=== PATIENT | female | born 1955 | race Caucasian/White ===

== ENCOUNTER 2017-12-24 15:50 | Observation (INO) | END 2017-12-26 16:20 | disposition home or self-care (01) ==

== ENCOUNTER 2018-07-05 01:54 | Inpatient (IN) | payer OTHER ==
[2018-07-05] VITALS (10 sets, daily range): BP systolic 100–131; BP diastolic 55–78; PULSE 68–120; RESP 18–20; Ht 167.6 cm; Wt 71.9 kg
[~2018-07-05] VITALS: Ht 167.6 cm; Wt 71.9 kg
[~2018-07-05 01:54] MED LIST: ADV25050 INHALATION; ALBU8.5H8 INH; AMLO-145 PO; CARV6.2579 PO
--- NOTE | 2018-07-05 04:54 | HP ---
Date/Time of Note Date/Time of Note DATE: 07/05/18 TIME: 04:54 Assessment/Plan VTE Prophylaxis SCD applied (from Nsg): Yes Pharmacological prophylaxis: apixaban Assessment/Plan Assessment/Plan 1. Acute lower extremity pain with edema - Will check ECHO and BNP to assess for CHF exacerbation - Lasix on board - PT/OT - pain control 2. Acute on chronic Diastolic HF - not on any medications as outpatient - Will start on Lasix and check BNP and ECHO 3. Atrial fib - rate controlled - will continue on Eliquis and BB 4. Acute chest pain - resolved - last stress was 12/2017 and negative 5. COPD - continue neb treatments 6. Pulm HTN - O2 as needed 7. hypokalemia - replaced prior to transfer 8. Disposition - Admit to telemetry for evaluation of lower extremity edema HPI/ROS Admit Date/Time Admit Date/Time Jul 05, 2018 at 03:44 Hx of Present Illness 63 yo F with PMH atrial fibrillation, chronic alcoholism, HTN, COPD, diastolic heart failure, and pulmonary HTN presented to [facility] complaining of bilateral lower extremity edema with associated pain. She has been unable to ambulate or stand due to swelling and discomfort and concerned she may just need to use a walker. Patient also admits to chest pressure that has since resolved with recent workup in December with negative stress. Patient admits to congested cough with clear sputum but denies any shortness of breath. She has been admitted to [place] multiple times in the past few months and states her medications keep changing. She currently is only on Eliquis and Coreg for atrial fibrillation. She denies any current alcohol or tobacco use. Patient denies any urinary issues, chest pain, palpitations, abdominal pain, constipation, diarrhea, or dizziness. ROS All 12 systems reviewed and pertinent positives as per HPI. All others negative. Constitutional: No chills, No fatigue, No nausea Eyes: No discharge ENT: No congestion Respiratory: cough, sputum; No shortness of breath, No wheezing Cardiovascular: edema; No chest pain, No lightheadedness, No palpitations Gastrointestinal: No pain, No constipation, No diarrhea, No nausea, No vomiting Genitourinary: no complaints Musculoskeletal: no complaints Skin: No bruising, No laceration, No rash Neurologic: No confusion, No dizziness, No focal-weakness, No syncope Endocrine: no complaints Lymphatic: no complaints Psychological: nl mood/affect Immunologic: no complaints PMH/Family/Social Past Medical History Medical History: congestive heart failure, other (atrial fibrillation) Coded Allergies: No Known Allergy (Unverified , 12/24/17) Past Surgical History Past Surgical Hx: noncontributory, other Family History Significant Family History: no pertinent family hx Social History Alcohol Use: sober Smoking Status: Former smoker Drug Use: none Exam/Review of Systems Vital Signs Vitals Vital Signs Date Temp Pulse Resp B/P (MAP) Pulse Ox O2 O2 Flow FiO2 Time Delivery Rate 07/05/18 97.8 100 20 129/78 98 04:26 (95) Exam Exam General: Patient is a pleasant female, currently lying in bed in no acute distress HEENT: Atraumatic, normocephalic. The pupils are equal, round and reactive. Extraocular motor are intact Neck: Supple with full range of motion. No rigidity or meningismus Chest: Nontender Lungs: Congested cough, coarse breath sounds diffusely, no wheezing Heart: Normal S1-S2, irregular rhythm and rate controlled. no murmurs Abdomen: Soft , nontender, nondistended , bowel sounds are present. No guarding no rebound tenderness , No masses or organomegaly. No costovertebral temporal angle mass Extremities: pedal edema bilaterally R>L with tenderness to palpation. Neurologic: Normal mental status, speech normal, cranial nerves II through XII are intact, motor and sensory are intact, Additional Comments Home medications reviewed NEIL TERRELL MD Jul 05, 2018 04:54
[2018-07-05] MEDS ORDERED: HYDROCODONE/APAP (5/325) TAB PO PRN (05:00)
[2018-07-05] MEDS ORDERED: DOCUSATE SODIUM 100 MG CAP PO PRN (05:00)
[2018-07-05] MEDS ORDERED: ACETAMINOPHEN 325 MG TAB PO PRN (05:00)
[2018-07-05] MEDS ORDERED: ONDANSETRON 4 MG INJ IV PRN (05:00)
[2018-07-05] MEDS ORDERED: NITROGLYCERIN (SL) 0.4 MG TAB SL PRN (05:00)
[2018-07-05] MEDS ORDERED: MAGNESIUM HYDROXIDE 30ML CUP PO PRN (05:00)
[2018-07-05] MEDS ORDERED: ALBUTEROL 0.083% (NEB) 2.5 MG/3 ML AMP HHN PRN (05:00)
[2018-07-05] MEDS ORDERED: morphine 2 MG INJ IV PRN (05:00)
[2018-07-05] MEDS ORDERED: NACL 0.9% 3 ML SYG IV SCH (05:00)
[2018-07-05] MEDS: PANTOPRAZOLE (EC) 40 MG TAB PO SCH (05:37)
[2018-07-05] MEDS: FLUTICASONE/VILANTEROL 100-25 INH SCH (08:58)
[2018-07-05] MEDS: APIXABAN 5 MG TABLET PO SCH ×2 (08:58→20:33)
[2018-07-05] MEDS ORDERED: ENOXAPARIN 40 MG/0.4 ML SYG SC SCH (09:00)
[2018-07-05] MEDS ORDERED: FUROSEMIDE 40 MG INJ IV SCH (09:00)
[2018-07-05] MEDS ORDERED: AMLODIPINE 5 MG TAB PO SCH (09:00)
[2018-07-05] MEDS ORDERED: LACTULOSE 30ML CUP PO SCH (09:00)
[2018-07-05] MEDS ORDERED: POTASSIUM CHLORIDE (SR) 20 MEQ TAB PO STA (09:18)
--- NOTE | 2018-07-05 09:21 | PN ---
Date/Time of Note Date/Time of Note DATE: 07/05/18 TIME: 09:18 Assessment/Plan VTE Prophylaxis Risk score (from Nsg)>0 risk: 5 SCD applied (from Nsg): No SCD contraindicated: other Pharmacological prophylaxis: apixaban Lines/Catheters IV Catheter Type (from Nrsg): Saline Lock Urinary Cath still in place: No Assessment/Plan Hospital Course Assessment/Plan: 63-year-old female who presents with: 1. Acute on chronic Diastolic HF -patient presented with acute lower extremity pain with edema -Follow-up results of ECHO and BNP to assess for CHF exacerbation -Continue Lasix on board -We will get PT/OT - pain control 3. Atrial fib- rate controlled - will continue on Eliquis and BB 4. Acute chest pain- resolved- last stress was 12/2017 and negative -Monitor, follow-up troponins as 5. COPD - continue as needed neb treatments 6. Pulm HTN -Monitor, O2 as needed 7. hypokalemia- replaced prior to transfer -Follow potassium levels in the morning Result Diagram: 07/05/18 0536 Results 24hrs Laboratory Tests Test 07/05/18 05:36 Sodium Level 138 Potassium Level 3.3 L Chloride Level 101 Carbon Dioxide Level 34 H Anion Gap 3 L Blood Urea Nitrogen 8 Creatinine 0.60 Est Glomerular Filtrat Rate mL/min > 60 Glucose Level 93 Calcium Level 8.0 L Magnesium Level 1.7 Creatine Kinase < 20 L Creatine Kinase Index Creatinine Kinase MB (Mass) 0.46 Troponin I 0.024 B-Type Natriuretic Peptide 778 H Subjective 24 Hr Interval Summary Free Text/Dictation No acute events overnight, tolerating Lasix Exam/Review of Systems Exam Vitals Vital Signs Date Temp Pulse Resp B/P (MAP) Pulse Ox O2 O2 Flow FiO2 Time Delivery Rate 07/05/18 96 20 98 21 07:43 07/05/18 98.0 131/75 07:23 (93) Intake and Output 07/04/18 07/04/18 07/05/18 1515:00 23:00 07:00 IntakeIntake Total 240 ml BalanceBalance 240 ml Exam General: lying in bed in no acute distress HEENT: Atraumatic, normocephalic. The pupils are equal, round and reactive. Extraocular motor are intact Neck: Supple with full range of motion. No rigidity or meningismus Chest: Nontender Lungs: Some coarse breath sounds diffusely, no wheezing Heart: Normal S1-S2, irregular rhythm and rate controlled. no murmurs Abdomen: Soft , nontender, nondistended , bowel sounds are present. No guarding no rebound tenderness Extremities: pedal edema bilaterally R>L with tenderness to palpation. Neurologic: No focal deficits Results Results 24hrs Laboratory Tests Test 07/05/18 05:36 Sodium Level 138 Potassium Level 3.3 L Chloride Level 101 Carbon Dioxide Level 34 H Anion Gap 3 L Blood Urea Nitrogen 8 Creatinine 0.60 Est Glomerular Filtrat Rate mL/min > 60 Glucose Level 93 Calcium Level 8.0 L Magnesium Level 1.7 Creatine Kinase < 20 L Creatine Kinase Index Creatinine Kinase MB (Mass) 0.46 Troponin I 0.024 B-Type Natriuretic Peptide 778 H Medications Medication Current Medications Amlodipine Besylate (Norvasc) 5 mg DAILY PO Last administered on 07/05/18at 08:58; Admin Dose 5 MG; Start 07/05/18 at 09:00 Fluticasone/ Vilanterol (Breo Ellipta 100-25 Mcg Inh) 1 inh DAILY INH Last administered on 07/05/18at 08:58; Admin Dose 1 INH; Start 07/05/18 at 09:00 Albuterol (Proventil 0.083% (Neb)) 2.5 mg Q2H RESP THERAPY PRN HHN SHORTNESS OF BREATH Last administered on 07/05/18at 07:43; Admin Dose 2.5 MG; Start 07/05/18 at 05:00 IV Flush (NS 3 ml) 3 ml PER PROTOCOL IV ; Start 07/05/18 at 05:00 Ondansetron HCl (Zofran Inj) 4 mg Q6H PRN IV NAUSEA/VOMITING; Start 07/05/18 at 05:00 Nitroglycerin (Nitroglycerin (Sl Tab) 0.4 Mg) 1 tab Q5M PRN SL .CHEST PAIN; Start 07/05/18 at 05:00 Acetaminophen (Tylenol Tab) 650 mg Q6H PRN PO .PAIN 1-3 OR TEMP; Start 07/05/18 at 05:00 Acetaminophen/ Hydrocodone Bitart ([place] (5/325)) 1 tab Q6H PRN PO .PAIN 4-6; Start 07/05/18 at 05:00 Morphine Sulfate (morphine) 2 mg Q4H PRN IV .PAIN 7-10; Start 07/05/18 at 05:00 Docusate Sodium (Colace) 100 mg Q12H PRN PO .CONSTIPATION; Start 07/05/18 at 05:00 Magnesium Hydroxide (Milk Of Mag) 30 ml DAILY PRN PO .CONSTIPATION; Start 07/05/18 at 05:00 Pantoprazole (Protonix Tab) 40 mg DAILY@06 PO Last administered on 07/05/18at 05 :37; Admin Dose 40 MG; Start 07/05/18 at 06:00 Carvedilol (Coreg) 3.125 mg BID PO Last administered on 07/05/18at 08:58; Admin Dose 3.125 MG; Start 07/05/18 at 09:00 Apixaban (Eliquis) 5 mg BID PO Last administered on 07/05/18at 08:58; Admin Dose 5 MG; Start 07/05/18 at 09:00 Furosemide (Lasix) 40 mg DAILY IV Last administered on 07/05/18at 08:59; Admin Dose 40 MG; Start 07/05/18 at 09:00 AMBER HASSAN Jul 05, 2018 09:21
--- NOTE | 2018-07-05 09:44 | RADRPT ---
Echocardiogram Report Patient Name: OMAR GALLEGOSatient ID: [id number] : 1955 (63y 6m)Study Date: 07/05/2018 7:17:23 AM Gender: FAccession #: [id number] Tech: Kareem Ceron [facility] Location: 9 Ref.Physician: NEIL TERRELL Height(Cm): BSA: Weight(Kg): Quality: Technically Difficult StudyAccount #: Procedures: Echocardiographic Report: Transthoracic echocardiogram with complete 2D, M-Mode, and doppler examination. Indications: Evaluate Left Ventricular function, and Chest Pain. Measurements: 2D/M Mode Doppler Measurement Value Normal Range Measurement Value Normal Range LVIDd 2D 4.3 [ 3.8 - 5.2 ] cm AV Peak Trung 1.2 [ 100.0 - 170.0 ] cm/sec LVIDs 2D 2.3 [ 2.2 - 3.5 ] cm AV Peak PG 6.0 [ 2.0 - 9.0 ] mmHg LVPWd 2D 1.0 [ 0.6 - 0.9 ] cm LVOT Peak Trung 0.8 [ 70.0 - 110.0 ] cm/sec IVSd 2D 1.0 [ 0.6 - 0.9 ] cm LVOT Peak PG 3.0 [ 2.0 - 6.0 ] mmHg AoR Diam 2D 3.0 [ 2.3 - 3.1 ] cm MV E Peak Trung 0.8 [ 60.0 - 130.0 ] cm/sec EDV 2D 84.9 [ 46.0 - 106.0 ] ml MV A Peak Trung 0.7 [ 100.0 - 120.0 ] cm/sec ESV 2D 17.1 [ 14.0 - 42.0 ] ml MV E/A 1.1 [ 0.8 - 1.5 ] ratio EF 2D 79.9 [ 54.0 - 74.0 ] percent MV Decel Time 144 [ 104 - 258 ] msec LA Dimen 2D 3.5 [ 2.7 - 3.8 ] cm Lat E` Trung 0.2 [ 10.0 - 15.0 ] cm/sec Lateral E/E` 4.7 [ 1.0 - 2.0 ] ratio MV E/A 1.1 [ 0.8 - 1.5 ] ratio TR Peak Trung 2.7 [ 100.0 - 280.0 ] cm/sec TR Peak PG 29.0 mmHg RVSP 39.0 [ 10.0 - 36.0 ] mmHg RA Pressure 10.0 mmHg Findings: Left Ventricle: Normal left ventricular systolic function. Normal left ventricular cavity size. Normal left ventricular wall thickness. Ejection fraction is visually estimated at 65 %. Tissue Doppler/Mitral Doppler indices are within normal limits. Right Ventricle: Normal right ventricular size. Normal right ventricular systolic function. Left Atrium: The left atrium is normal in size. Right Atrium: The right atrium is normal in size. Mitral Valve: Normal appearance and function of the mitral valve with trace physiologic regurgitation. Aortic Valve: Normal appearance of the aortic valve. No significant aortic stenosis or insufficiency. Tricuspid Valve: Normal appearance of the tricuspid valve. Estimated peak PA systolic pressure 39 mmHg. There is trace tricuspid regurgitation. Pulmonic Valve: Pulmonic valve not well visualized. Pericardium: Normal pericardium with no significant pericardial effusion. Right pleural effusion seen. Aorta: Normal aortic root. IVC: Normal size and normal respiratory collapse consistent with normal right atrial pressure. Conclusions: Normal left ventricular systolic function. Normal left ventricular cavity size. Normal left ventricular wall thickness. Ejection fraction is visually estimated at 65 %. Tissue Doppler/Mitral Doppler indices are within normal limits. Normal appearance and function of the mitral valve with trace physiologic regurgitation. Normal appearance of the aortic valve. No significant aortic stenosis or insufficiency. Normal appearance of the tricuspid valve. Estimated peak PA systolic pressure 39 mmHg. There is trace tricuspid regurgitation. Electronically Signed By: Percy Gutierrez 2018-07-05 09:43:32 PST
[2018-07-05] MEDS ORDERED: DIGOXIN 0.125 MG TAB PO SCH (13:00)
[2018-07-05] MEDS ORDERED: morphine LIQ (10 MG/5 ML) CUP PO PRN (20:30)
[2018-07-06] VITALS (12 sets, daily range): BP systolic 82–106; BP diastolic 54–68; PULSE 69–105; RESP 16–18
[2018-07-06] MEDS: PANTOPRAZOLE (EC) 40 MG TAB PO SCH (05:42)
[2018-07-06] MEDS: APIXABAN 5 MG TABLET PO SCH ×2 (08:35→20:00)
[2018-07-06] MEDS: FLUTICASONE/VILANTEROL 100-25 INH SCH (08:36)
[2018-07-06] MEDS ORDERED: POTASSIUM CHLORIDE (SR) 20 MEQ TAB PO STA (08:57)
[2018-07-06] MEDS ORDERED: MAGNESIUM SULFATE 2 GM/50 ML 50 ML IVPB ONE (10:00)
--- NOTE | 2018-07-06 10:51 | PN ---
Date/Time of Note Date/Time of Note DATE: 07/06/18 TIME: 10:51 Assessment/Plan VTE Prophylaxis Risk score (from Ns)>0 risk: 5 SCD applied (from [facility]): No SCD contraindicated: patient refusal Pharmacological prophylaxis: apixaban Lines/Catheters IV Catheter [facility] (from [facility]): Saline Lock Urinary Cath still in place: No Assessment/Plan Assessment/Plan 1. Acute on chronic Diastolic HF - Cardiology consultation placed and appreciate recommendations for diuretics - Lasix and Aldactone on board - ECHO results noted - BNP elevated 2. Atrial fib - rate controlled - will continue on Eliquis 3. Acute chest pain - resolved - last stress was 12/2017 and negative 4. COPD - continue neb treatments 5. Pulm HTN - O2 as needed 6. hypokalemia - replacing 7. Disposition - When reaches dry weight, will d/c home with HHPT Result Diagram: 07/06/1815 07/06/18 0515 Results 24hrs Laboratory Tests Test 07/05/18 11:01 07/06/18 05:15 Creatine Kinase < 20 L Creatine Kinase Index Creatinine Kinase MB (Mass) 0.40 Troponin I 0.024 White Blood Count 7.6 # Red Blood Count 2.74 L Hemoglobin 8.8 L Hematocrit 26.2 #L Mean Corpuscular Volume 95.6 Mean Corpuscular Hemoglobin 32.1 Mean Corpuscular Hemoglobin Concent 33.6 Red Cell Distribution Width 15.0 H Platelet Count 198 # Mean Platelet Volume 10.6 H Immature Granulocytes % 0.400 Neutrophils % 57.1 Lymphocytes % 31.4 Monocytes % 8.6 Eosinophils % 2.1 Basophils % 0.4 Nucleated Red Blood Cells % 0.0 Immature Granulocytes # 0.030 Neutrophils # 4.3 Lymphocytes # 2.4 Monocytes # 0.7 Eosinophils # 0.2 Basophils # 0.0 Nucleated Red Blood Cells # 0.0 Sodium Level 137 Potassium Level 3.2 L Chloride Level 97 Carbon Dioxide Level 31 Anion Gap 9 # Blood Urea Nitrogen 7 Creatinine 0.63 Est Glomerular Filtrat Rate mL/min > 60 Glucose Level 96 Hemoglobin A1c 4.5 Calcium Level 7.6 L Magnesium Level 1.6 L Triglycerides Level 76 Cholesterol Level 92 L LDL Cholesterol, Calculated 64 HDL Cholesterol 13 L Cholesterol/HDL Ratio 7.0 Thyroid Stimulating Hormone (TSH) 4.270 Subjective 24 Hr Interval Summary Free Text/Dictation Patient still with lower extremity edema and discomfort. Able to transfer to bedside commode without issues. Initially diuresing a great a lot but states urine output has diminished. Exam/Review of Systems Exam Vitals Vital Signs Date Temp Pulse Resp B/P (MAP) Pulse Ox O2 O2 Flow FiO2 Time Delivery Rate 07/06/18 99 08:17 07/06/18 97.7 17 88/57 (67) 96 07:58 07/05/18 21 07:43 Intake and Output 07/05/18 07/05/18 07/06/18 1414:59 22:59 06:59 IntakeIntake Total 900 ml 500 ml BalanceBalance 900 ml 500 ml Exam General: Patient is a pleasant female, no acute distress Neck: Supple Chest: Nontender Lungs: Coarse breath sounds. mild expiratory wheezing Heart: Normal S1-S2, irregular rhythm and rate controlled. no murmurs Abdomen: Soft , nontender, nondistended , bowel sounds are present. No guarding no rebound tenderness Extremities: Bilateral pitting edema up to shins, tenderness to palpation. Neurologic: Normal mental status, speech normal, cranial nerves II through XII are intact, motor and sensory are intact, Results Results 24hrs Laboratory Tests Test 07/05/18 11:01 07/06/18 05:15 Creatine Kinase < 20 L Creatine Kinase Index Creatinine Kinase MB (Mass) 0.40 Troponin I 0.024 White Blood Count 7.6 # Red Blood Count 2.74 L Hemoglobin 8.8 L Hematocrit 26.2 #L Mean Corpuscular Volume 95.6 Mean Corpuscular Hemoglobin 32.1 Mean Corpuscular Hemoglobin Concent 33.6 Red Cell Distribution Width 15.0 H Platelet Count 198 # Mean Platelet Volume 10.6 H Immature Granulocytes % 0.400 Neutrophils % 57.1 Lymphocytes % 31.4 Monocytes % 8.6 Eosinophils % 2.1 Basophils % 0.4 Nucleated Red Blood Cells % 0.0 Immature Granulocytes # 0.030 Neutrophils # 4.3 Lymphocytes # 2.4 Monocytes # 0.7 Eosinophils # 0.2 Basophils # 0.0 Nucleated Red Blood Cells # 0.0 Sodium Level 137 Potassium Level 3.2 L Chloride Level 97 Carbon Dioxide Level 31 Anion Gap 9 # Blood Urea Nitrogen 7 Creatinine 0.63 Est Glomerular Filtrat Rate mL/min > 60 Glucose Level 96 Hemoglobin A1c 4.5 Calcium Level 7.6 L Magnesium Level 1.6 L Triglycerides Level 76 Cholesterol Level 92 L LDL Cholesterol, Calculated 64 HDL Cholesterol 13 L Cholesterol/HDL Ratio 7.0 Thyroid Stimulating Hormone (TSH) 4.270 Medications Medication Current Medications Amlodipine Besylate (Norvasc) 5 mg DAILY PO Last administered on 07/05/18at 08:58; Admin Dose 5 MG; Start 07/05/18 at 09:00 Fluticasone/ Vilanterol (Breo Ellipta 100-25 Mcg Inh) 1 inh DAILY INH Last administered on 07/06/18at 08:36; Admin Dose 1 INH; Start 07/05/18 at 09:00 Albuterol (Proventil 0.083% (Neb)) 2.5 mg Q2H RESP THERAPY PRN HHN SHORTNESS OF BREATH Last administered on 07/05/18at 07:43; Admin Dose 2.5 MG; Start 07/05/18 a t 05:00 IV Flush (NS 3 ml) 3 ml PER PROTOCOL IV ; Start 07/05/18 at 05:00 Ondansetron HCl (Zofran Inj) 4 mg Q6H PRN IV NAUSEA/VOMITING; Start 07/05/18 at 05:00 Nitroglycerin (Nitroglycerin (Sl Tab) 0.4 Mg) 1 tab Q5M PRN SL .CHEST PAIN; Start 07/05/18 at 05:00 Acetaminophen (Tylenol Tab) 650 mg Q6H PRN PO .PAIN 1-3 OR TEMP; Start 07/05/18 at 05:00 Acetaminophen/ Hydrocodone Bitart ([place] (5/325)) 1 tab Q6H PRN PO .PAIN 4-6; Start 07/05/18 at 05:00 Docusate Sodium (Colace) 100 mg Q12H PRN PO .CONSTIPATION; Start 07/05/18 at 05:00 Magnesium Hydroxide (Milk Of Mag) 30 ml DAILY PRN PO .CONSTIPATION; Start 07/05/18 at 05:00 Pantoprazole (Protonix Tab) 40 mg DAILY@06 PO Last administered on 07/06/18at 05:42; Admin Dose 40 MG; Start 07/05/18 at 06:00 Carvedilol (Coreg) 3.125 mg BID PO Last administered on 07/05/18at 20:33; Admin Dose 3.125 MG; Start 07/05/18 at 09:00 Apixaban (Eliquis) 5 mg BID PO Last administered on 07/06/18at 08:35; Admin Dose 5 MG; Start 07/05/18 at 09:00 Furosemide (Lasix) 40 mg DAILY IV Last administered on 07/05/18at 08:59; Admin Dose 40 MG; Start 07/05/18 at 09:00 Morphine Sulfate (morphine) 6 mg Q4H PRN PO SEVERE PAIN LEVEL 7-10; Start 07/05/18 at 20:30 Magnesium Sulfate 50 ml @ 25 mls/hr ONCE ONCE IVPB Last administered on 07/06/18at 09:45; Admin Dose 25 MLS/HR; Start 07/06/18 at 10:00; Stop 07/06/18 at 11:59 NEIL TERRELL MD Jul 06, 2018 10:51
--- NOTE | 2018-07-06 11:05 | CONS ---
Assessment/Plan Cardiology NYHA: II Heart Failure Type: Acute Heart Failure Type: Diastolic Assessment/Plan Hospital Course (Demo Recall) Acute decompensated diastolic congestive heart failure History of hypertension, currently hypotensive Paroxysmal atrial fibrillation History of COPD Normal nuclear cardiac perfusion study 12/25/2017 Preserved left ventricular systolic ejection fraction echocardiogram 07/05/2018 ASD status post surgical repair -Patient presents with progressive worsening lower extremity edema as well as wheezing and cough. -She has been on Lasix with minimal improvement in her symptoms. Of note, patient's blood pressure has been on the lower side and I am unsure if she has been receiving all of her diuretics. -I will DC her Norvasc and Coreg -Adjust Lasix 20 mg IV twice daily with holding parameters for hypotension. I will start the patient on Aldactone as well given the hypokalemia Consultation Date/Type/Reason Admit Date/Time Jul 05, 2018 at 03:44 Type of Consult Cardiology Reason for Consultation Lower extremity edema Date/Time of Note DATE: 07/06/18 TIME: 10:57 Hx of Present Illness This is a 63-year-old female with past medical history of diastolic congestive heart failure, paroxysmal atrial fibrillation, COPD who presents with symptoms of progressive lower extremity edema for the past month and a wet cough over the past few days. Patient denies any shortness of breath but does complain of intermittent wheezing. Her lower extremity edema began approximately a month ago. She has been in a rehab facility over the past month. Her cough is wet but minimally productive. She denies any fevers or chills. She has been compliant with her medications and she thinks she is on a low-sodium diet. 12 point review of systems was performed with all pertinent positives and negatives mentioned above and all else is negative Past Medical History Paroxysmal atrial fibrillation COPD Medical History: congestive heart failure, hypertension Home Meds Active Scripts Salmeterol Xinaf/Fluticasone* (Advair*) 250-50 Diskus Inhaler, 1 INH INHALATION BID, #1 INHALER Prov:THU THORPE NP 12/26/17 Albuterol Sulfate* (Proair HFA*) 8.5 Gm Hfa.aer.ad, 2 PUFF INH Q4 for Dyspnea, #1 INHALER Prov:THU THORPE NP 12/26/17 Carvedilol* (Carvedilol*) 6.25 Mg Tablet, 6.25 MG PO BID, #60 TAB Prov:THU THORPE HRIS DEVELOPER 12/26/17 Amlodipine Besylate* (Amlodipine Besylate*) 5 Mg Tablet, 5 MG PO DAILY, #30 TAB Prov:THU THORPE HRIS DEVELOPER 12/26/17 Medications Current Medications Fluticasone/ Vilanterol (Breo Ellipta 100-25 Mcg Inh) 1 inh DAILY INH Last administered on 07/06/18 08:36; Admin Dose 1 INH; Start 07/05/18 at 09:00 Albuterol (Proventil 0.083% (Neb)) 2.5 mg Q2H RESP THERAPY PRN HHN SHORTNESS OF BREATH Last administered on 07/05/18 07:43; Admin Dose 2.5 MG; Start 07/05/18 at 05:00 IV Flush (NS 3 ml) 3 ml PER PROTOCOL IV ; Start 07/05/18 at 05:00 Ondansetron HCl (Zofran Inj) 4 mg Q6H PRN IV NAUSEA/VOMITING; Start 07/05/18 at 05:00 Nitroglycerin (Nitroglycerin (Sl Tab) 0.4 Mg) 1 tab Q5M PRN SL .CHEST PAIN; Start 07/05/18 at 05:00 Acetaminophen (Tylenol Tab) 650 mg Q6H PRN PO .PAIN 1-3 OR TEMP; Start 07/05/18 at 05:00 Acetaminophen/ Hydrocodone Bitart ([place] (5/325)) 1 tab Q6H PRN PO .PAIN 4-6; Start 07/05/18 at 05:00 Docusate Sodium (Colace) 100 mg Q12H PRN PO .CONSTIPATION; Start 07/05/18 at 05:00 Magnesium Hydroxide (Milk Of Mag) 30 ml DAILY PRN PO .CONSTIPATION; Start 07/05/18 at 05:00 Pantoprazole (Protonix Tab) 40 mg DAILY@06 PO Last administered on 07/06/18 05:42; Admin Dose 40 MG; Start 07/05/18 at 06:00 Apixaban (Eliquis) 5 mg BID PO Last administered on 07/06/18 08:35; Admin Dose 5 MG; Start 07/05/18 at 09:00 Furosemide (Lasix) 40 mg DAILY IV Last administered on 2/19/19at 08:59; Admin Dose 40 MG; Start 07/05/18 at 09:00 Morphine Sulfate (morphine) 6 mg Q4H PRN PO SEVERE PAIN LEVEL 7-10; Start 07/05/18 at 20:30 Magnesium Sulfate 50 ml @ 25 mls/hr ONCE ONCE IVPB Last administered on 07/06/18at 09:45; Admin Dose 25 MLS/HR; Start 07/06/18 at 10:00; Stop 07/06/18 at 11:59 Allergies: Coded Allergies: No Known Allergy (Unverified , 12/24/17) Past Surgical History Past Surgical Hx: noncontributory, other Social History Alcohol Use: sober Smoking Status: Former smoker Drug Use: none Exam/Review of Systems Vital Signs Vitals Vital Signs Date Temp Pulse Resp B/P (MAP) Pulse Ox O2 O2 Flow FiO2 Time Delivery Rate 07/06/18 99 08:17 07/06/18 97.7 17 88/57 (67) 96 07:58 07/05/18 21 07:43 Intake and Output 07/05/18 07/05/18 07/06/18 1515:00 23:00 07:00 IntakeIntake Total 900 ml 500 ml BalanceBalance 900 ml 500 ml Exam Exam No apparent distress Constitutional: alert, oriented, well developed Head: normocephalic Respiratory: other (Coarse breath sounds bilaterally with mild end expiratory wheezing, minimal scattered crackles) Cardiovascular: regular rate and rhythm (With intermittent irregularities), other (S1-S2 heard) Gastrointestinal: soft, non-tender, bowel sounds Extremities: edema Labs Result Diagram: 07/06/1815 07/06/18 0515 Results 24hrs Laboratory Tests Test 07/05/18 11:01 07/06/18 05:15 Creatine Kinase < 20 L Creatine Kinase Index Creatinine Kinase MB (Mass) 0.40 Troponin I 0.024 White Blood Count 7.6 # Red Blood Count 2.74 L Hemoglobin 8.8 L Hematocrit 26.2 #L Mean Corpuscular Volume 95.6 Mean Corpuscular Hemoglobin 32.1 Mean Corpuscular Hemoglobin Concent 33.6 Red Cell Distribution Width 15.0 H Platelet Count 198 # Mean Platelet Volume 10.6 H Immature Granulocytes % 0.400 Neutrophils % 57.1 Lymphocytes % 31.4 Monocytes % 8.6 Eosinophils % 2.1 Basophils % 0.4 Nucleated Red Blood Cells % 0.0 Immature Granulocytes # 0.030 Neutrophils # 4.3 Lymphocytes # 2.4 Monocytes # 0.7 Eosinophils # 0.2 Basophils # 0.0 Nucleated Red Blood Cells # 0.0 Sodium Level 137 Potassium Level 3.2 L Chloride Level 97 Carbon Dioxide Level 31 Anion Gap 9 # Blood Urea Nitrogen 7 Creatinine 0.63 Est Glomerular Filtrat Rate mL/min > 60 Glucose Level 96 Hemoglobin A1c 4.5 Calcium Level 7.6 L Magnesium Level 1.6 L Triglycerides Level 76 Cholesterol Level 92 L LDL Cholesterol, Calculated 64 HDL Cholesterol 13 L Cholesterol/HDL Ratio 7.0 Thyroid Stimulating Hormone (TSH) 4.270 Medications Medications Current Medications Fluticasone/ Vilanterol (Breo Ellipta 100-25 Mcg Inh) 1 inh DAILY INH Last administered on 07/06/18at 08:36; Admin Dose 1 INH; Start 07/05/18 at 09:00 Albuterol (Proventil 0.083% (Neb)) 2.5 mg Q2H RESP THERAPY PRN HHN SHORTNESS OF BREATH Last administered on 07/05/18at 07:43; Admin Dose 2.5 MG; Start 07/05/18 at 05:00 IV Flush (NS 3 ml) 3 ml PER PROTOCOL IV ; Start 07/05/18 at 05:00 Ondansetron HCl (Zofran Inj) 4 mg Q6H PRN IV NAUSEA/VOMITING; Start 07/05/18 at 05:00 Nitroglycerin (Nitroglycerin (Sl Tab) 0.4 Mg) 1 tab Q5M PRN SL .CHEST PAIN; Start 07/05/18 at 05:00 Acetaminophen (Tylenol Tab) 650 mg Q6H PRN PO .PAIN 1-3 OR TEMP; Start 07/05/18 at 05:00 Acetaminophen/ Hydrocodone Bitart ([place] (5/325)) 1 tab Q6H PRN PO .PAIN 4-6; Start 07/05/18 at 05:00 Docusate Sodium (Colace) 100 mg Q12H PRN PO .CONSTIPATION; Start 07/05/18 at 05:00 Magnesium Hydroxide (Milk Of Mag) 30 ml DAILY PRN PO .CONSTIPATION; Start 07/05/18 at 05:00 Pantoprazole (Protonix Tab) 40 mg DAILY@06 PO Last administered on 07/06/18at 05:42; Admin Dose 40 MG; Start 07/05/18 at 06:00 Apixaban (Eliquis) 5 mg BID PO Last administered on 07/06/18 08:35; Admin Dose 5 MG; Start 07/05/18 at 09:00 Furosemide (Lasix) 40 mg DAILY IV Last administered on 07/05/18 08:59; Admin Dose 40 MG; Start 07/05/18 at 09:00 Morphine Sulfate (morphine) 6 mg Q4H PRN PO SEVERE PAIN LEVEL 7-10; Start 07/05/18 at 20:30 Magnesium Sulfate 50 ml @ 25 mls/hr ONCE ONCE IVPB Last administered on 07/06/18 09:45; Admin Dose 25 MLS/HR; Start 07/06/18 at 10:00; Stop 07/06/18 at 11:59 Ranulfo Gold DO Jul 06, 2018 11:05
[2018-07-06] MEDS: FUROSEMIDE 20 MG INJ IV SCH (18:13)
[2018-07-06] MEDS: SPIRONOLACTONE 25 MG TAB PO SCH (18:13)
[2018-07-07] VITALS (13 sets, daily range): BP systolic 90–110; BP diastolic 51–67; PULSE 82–108; RESP 17–18
[2018-07-07] MEDS: PANTOPRAZOLE (EC) 40 MG TAB PO SCH (05:13)
[2018-07-07] MEDS: FUROSEMIDE 20 MG INJ IV SCH ×2 (05:13→17:40)
[2018-07-07] MEDS: SPIRONOLACTONE 25 MG TAB PO SCH ×2 (05:13→17:42)
--- NOTE | 2018-07-07 08:45 | PN ---
Date/Time of Note Date/Time of Note DATE: 07/07/18 TIME: 08:44 Assessment/Plan VTE Prophylaxis Risk score (from Ns)>0 risk: 3 SCD applied (from [facility]): No SCD contraindicated: patient refusal Pharmacological prophylaxis: apixaban Lines/Catheters IV Catheter Type (from [facility]): Peripheral IV Urinary Cath still in place: No Assessment/Plan Assessment/Plan 1. Acute on chronic Diastolic HF - Cardiology on board and appreciate recommendations. Continue current diuretic dosages and monitor I/O - Lasix and Aldactone on board - ECHO results noted - Inital BNP elevated 2. Atrial fib - occasional episodes of RVR. Cardiology restarted BB for better control - will continue on Eliquis 3. Acute chest pain- resolved - last stress was 12/2017 and negative 4. COPD - continue neb treatments 5. Pulm HTN - O2 as needed 6. Peripheral neuropathy - will start on Gabapentin 7. Disposition - Continue diuresing and monitor for improvement in LE edema Result Diagram: 07/07/18 0535 07/07/18 0535 Results 24hrs Laboratory Tests Test 07/07/18 05:35 White Blood Count 9.2 # Red Blood Count 3.05 L Hemoglobin 9.6 L Hematocrit 29.1 L Mean Corpuscular Volume 95.4 Mean Corpuscular Hemoglobin 31.5 Mean Corpuscular Hemoglobin Concent 33.0 Red Cell Distribution Width 15.3 H Platelet Count 211 Mean Platelet Volume 11.2 H Immature Granulocytes % 0.300 Neutrophils % 61.4 Lymphocytes % 27.2 Monocytes % 9.3 Eosinophils % 1.5 Basophils % 0.3 Nucleated Red Blood Cells % 0.0 Immature Granulocytes # 0.030 Neutrophils # 5.6 Lymphocytes # 2.5 Monocytes # 0.9 Eosinophils # 0.1 Basophils # 0.0 Nucleated Red Blood Cells # 0.0 Sodium Level 136 Potassium Level 3.8 Chloride Level 98 Carbon Dioxide Level 34 H Anion Gap 4 L Blood Urea Nitrogen 9 Creatinine 0.71 Glucose Level 92 Calcium Level 7.8 L Phosphorus Level 3.5 Magnesium Level 1.8 Albumin 2.2 L Subjective 24 Hr Interval Summary Free Text/Dictation Patient is doing well and in no acute distress. She still has burning in lower extremities but swelling has improved. She has been urinating more frequently on increased dose of diuretics, Exam/Review of Systems Exam Vitals Vital Signs Date Temp Pulse Resp B/P (MAP) Pulse Ox O2 O2 Flow FiO2 Time Delivery Rate 07/07/18 108 08:17 07/07/18 98.4 17 110/67 94 07:18 (81) 07/07/18 Room Air 04:07 07/05/18 07:43 Intake and Output 07/06/18 07/06/18 07/07/18 1414:59 22:59 06:59 IntakeIntake Total 800 ml 200 ml BalanceBalance 800 ml 200 ml Exam General: Patient is a pleasant female, no acute distress Neck: Supple Lungs: Crackles at bases, no wheezing present Heart: Normal S1-S2, irregular rhythm and rate controlled (occasional RVR). no murmurs Abdomen: Soft , nontender, nondistended , bowel sounds are present. No guarding no rebound tenderness Extremities: Bilateral pitting edema feet bilaterally, mild tenderness to palpation. Neurologic: Normal mental status, speech normal, cranial nerves II through XII are intact, motor and sensory are intact, Results Results 24hrs Laboratory Tests Test 07/07/18 05:35 White Blood Count 9.2 # Red Blood Count 3.05 L Hemoglobin 9.6 L Hematocrit 29.1 L Mean Corpuscular Volume 95.4 Mean Corpuscular Hemoglobin 31.5 Mean Corpuscular Hemoglobin Concent 33.0 Red Cell Distribution Width 15.3 H Platelet Count 211 Mean Platelet Volume 11.2 H Immature Granulocytes % 0.300 Neutrophils % 61.4 Lymphocytes % 27.2 Monocytes % 9.3 Eosinophils % 1.5 Basophils % 0.3 Nucleated Red Blood Cells % 0.0 Immature Granulocytes # 0.030 Neutrophils # 5.6 Lymphocytes # 2.5 Monocytes # 0.9 Eosinophils # 0.1 Basophils # 0.0 Nucleated Red Blood Cells # 0.0 Sodium Level 136 Potassium Level 3.8 Chloride Level 98 Carbon Dioxide Level 34 H Anion Gap 4 L Blood Urea Nitrogen 9 Creatinine 0.71 Glucose Level 92 Calcium Level 7.8 L Phosphorus Level 3.5 Magnesium Level 1.8 Albumin 2.2 L Medications Medication Current Medications Fluticasone/ Vilanterol (Breo Ellipta 100-25 Mcg Inh) 1 inh DAILY INH Last administered on 07/06/18at 08:36; Admin Dose 1 INH; Start 07/05/18 at 09:00 Albuterol (Proventil 0.083% (Neb)) 2.5 mg Q2H RESP THERAPY PRN HHN SHORTNESS OF BREATH Last administered on 07/05/18at 07:43; Admin Dose 2.5 MG; Start 07/05/18 at 05:00 IV Flush (NS 3 ml) 3 ml PER PROTOCOL IV ; Start 07/05/18 at 05:00 Ondansetron HCl (Zofran Inj) 4 mg Q6H PRN IV NAUSEA/VOMITING; Start 07/05/18 at 05:00 Nitroglycerin (Nitroglycerin (Sl Tab) 0.4 Mg) 1 tab Q5M PRN SL .CHEST PAIN; Start 07/05/18 at 05:00 Acetaminophen (Tylenol Tab) 650 mg Q6H PRN PO .PAIN 1-3 OR TEMP; Start 07/05/18 at 05:00 Acetaminophen/ Hydrocodone Bitart ([place] (5/325)) 1 tab Q6H PRN PO .PAIN 4-6; Start 07/05/18 at 05:00 Docusate Sodium (Colace) 100 mg Q12H PRN PO .CONSTIPATION; Start 07/05/18 at 05:00 Magnesium Hydroxide (Milk Of Mag) 30 ml DAILY PRN PO .CONSTIPATION; Start 07/05/18 at 05:00 Pantoprazole (Protonix Tab) 40 mg DAILY@06 PO Last administered on 07/07/18at 05:13; Admin Dose 40 MG; Start 07/05/18 at 06:00 Apixaban (Eliquis) 5 mg BID PO Last administered on 07/06/18at 20:00; Admin Dose 5 MG; Start 07/05/18 at 09:00 Morphine Sulfate (morphine) 6 mg Q4H PRN PO SEVERE PAIN LEVEL 7-10; Start 07/05/18 at 20:30 Furosemide (Lasix) 20 mg BID DIURETICS IV Last administered on 07/07/18at 05:13; Admin Dose 20 MG; Start 07/06/18 at 18:00 Spironolactone (Aldactone) 12.5 mg BID DIURETICS PO Last administered on 07/07/18at 05:13; Admin Dose 12.5 MG; Start 07/06/18 at 18:00 NEIL TERRELL MD Jul 07, 2018 08:44
[2018-07-07] MEDS: FLUTICASONE/VILANTEROL 100-25 INH SCH (08:50)
[2018-07-07] MEDS: APIXABAN 5 MG TABLET PO SCH ×2 (08:50→20:35)
[2018-07-07] MEDS: GABAPENTIN 100 MG CAP PO SCH ×2 (12:12→20:35)
[2018-07-07] MEDS ORDERED: POTASSIUM CHLORIDE (SR) 20 MEQ TAB PO STA (13:58)
--- NOTE | 2018-07-07 14:07 | CONS ---
Assessment/Plan Cardiology NYHA: II Heart Failure Type: Acute Heart Failure Type: Diastolic Assessment/Plan Hospital Course (Demo Recall) Acute decompensated diastolic congestive heart failure Labile blood pressure Paroxysmal atrial fibrillation History of COPD Normal nuclear cardiac perfusion study 12/25/2017 Preserved left ventricular systolic ejection fraction echocardiogram 07/05/2018 ASD status post surgical repair -Shortness of breath as well as lower extremity edema is improving on current regimen of Lasix and Aldactone. Continue current diuretic regimen -Blood pressure trend has improved -Patient with bursts of atrial fibrillation with rapid ventricular rates, would start beta-devon and titrate as blood pressure permits -We will order potassium and magnesium supplementation Consultation Date/Type/Reason Admit Date/Time Jul 05, 2018 at 03:44 Initial Consult Date Type of Consult Cardiology Date/Time of Note DATE: 07/07/18 TIME: 13:59 24 HR Interval Summary Free Text/Dictation Feeling better today, less swelling in her legs and pain. Denies shortness of breath or wheezing Exam/Review of Systems Vital Signs Vitals Vital Signs Date Temp Pulse Resp B/P (MAP) Pulse Ox O2 O2 Flow FiO2 Time Delivery Rate 07/07/18 105 12:33 07/07/18 98.5 18 108/64 97 11:44 (79) 07/07/18 Room Air 11:00 07/05/18 07:43 Intake and Output 07/06/18 07/06/18 07/07/18 1515:00 23:00 07:00 IntakeIntake Total 800 ml 200 ml BalanceBalance 800 ml 200 ml Exam Constitutional: alert, oriented (No apparent distress, no dyspnea with speaking) Respiratory: other (Coarse breath sounds bilaterally, no wheezing) Cardiovascular: regular rate and rhythm (S1-S2 heard) Gastrointestinal: soft, non-tender, bowel sounds Extremities: edema Labs Result Diagram: 07/07/18 0535 07/07/18 0535 Results 24hrs Laboratory Tests Test 07/07/18 05:35 White Blood Count 9.2 # Red Blood Count 3.05 L Hemoglobin 9.6 L Hematocrit 29.1 L Mean Corpuscular Volume 95.4 Mean Corpuscular Hemoglobin 31.5 Mean Corpuscular Hemoglobin Concent 33.0 Red Cell Distribution Width 15.3 H Platelet Count 211 Mean Platelet Volume 11.2 H Immature Granulocytes % 0.300 Neutrophils % 61.4 Lymphocytes % 27.2 Monocytes % 9.3 Eosinophils % 1.5 Basophils % 0.3 Nucleated Red Blood Cells % 0.0 Immature Granulocytes # 0.030 Neutrophils # 5.6 Lymphocytes # 2.5 Monocytes # 0.9 Eosinophils # 0.1 Basophils # 0.0 Nucleated Red Blood Cells # 0.0 Sodium Level 136 Potassium Level 3.8 Chloride Level 98 Carbon Dioxide Level 34 H Anion Gap 4 L Blood Urea Nitrogen 9 Creatinine 0.71 Glucose Level 92 Calcium Level 7.8 L Phosphorus Level 3.5 Magnesium Level 1.8 Albumin 2.2 L Medications Medications Current Medications Fluticasone/ Vilanterol (Breo Ellipta 100-25 Mcg Inh) 1 inh DAILY INH Last adm inistered on 07/07/18at 08:50; Admin Dose 1 INH; Start 07/05/18 at 09:00 Albuterol (Proventil 0.083% (Neb)) 2.5 mg Q2H RESP THERAPY PRN HHN SHORTNESS OF BREATH Last administered on 07/05/18at 07:43; Admin Dose 2.5 MG; Start 07/05/18 at 05:00 IV Flush (NS 3 ml) 3 ml PER PROTOCOL IV ; Start 07/05/18 at 05:00 Ondansetron HCl (Zofran Inj) 4 mg Q6H PRN IV NAUSEA/VOMITING; Start 07/05/18 at 05:00 Nitroglycerin (Nitroglycerin (Sl Tab) 0.4 Mg) 1 tab Q5M PRN SL .CHEST PAIN; Start 07/05/18 at 05:00 Acetaminophen (Tylenol Tab) 650 mg Q6H PRN PO .PAIN 1-3 OR TEMP; Start 07/05/18 at 05:00 Acetaminophen/ Hydrocodone Bitart ([place] (5/325)) 1 tab Q6H PRN PO .PAIN 4-6; Start 07/05/18 at 05:00 Docusate Sodium (Colace) 100 mg Q12H PRN PO .CONSTIPATION; Start 07/05/18 at 05:00 Magnesium Hydroxide (Milk Of Mag) 30 ml DAILY PRN PO .CONSTIPATION; Start 07/05/18 at 05:00 Pantoprazole (Protonix Tab) 40 mg DAILY@06 PO Last administered on 07/07/18at 05:13; Admin Dose 40 MG; Start 07/05/18 at 06:00 Apixaban (Eliquis) 5 mg BID PO Last administered on 07/07/18at 08:50; Admin Dose 5 MG; Start 07/05/18 at 09:00 Morphine Sulfate (morphine) 6 mg Q4H PRN PO SEVERE PAIN LEVEL 7-10; Start 07/05/18 at 20:30 Furosemide (Lasix) 20 mg BID DIURETICS IV Last administered on 07/07/18at 05:13; Admin Dose 20 MG; Start 07/06/18 at 18:00 Spironolactone (Aldactone) 12.5 mg BID DIURETICS PO Last administered on at 05:13; Admin Dose 12.5 MG; Start 07/06/18 at 18:00 Gabapentin (Neurontin) 100 mg TID PO Last administered on 07/07/18at 12:12; Admin Dose 100 MG; Start 07/07/18 at 13:00 Ranulfo Gold DO Jul 07, 2018 14:07
[2018-07-07] MEDS: METOPROLOL 25 MG TAB PO SCH ×2 (15:01→22:00)
[2018-07-07] MEDS ORDERED: MAGNESIUM SULFATE 2 GM/50 ML 50 ML IVPB ONE (15:30)
[2018-07-08] VITALS (14 sets, daily range): BP systolic 88–107; BP diastolic 53–67; PULSE 78–106; RESP 17–20
[2018-07-08] MEDS: SPIRONOLACTONE 25 MG TAB PO SCH ×2 (05:40→18:11)
[2018-07-08] MEDS: FUROSEMIDE 20 MG INJ IV SCH (05:40)
[2018-07-08] MEDS: METOPROLOL 25 MG TAB PO SCH ×3 (05:40→22:00)
[2018-07-08] MEDS: PANTOPRAZOLE (EC) 40 MG TAB PO SCH (05:42)
[2018-07-08] MEDS: GABAPENTIN 100 MG CAP PO SCH (08:26)
[2018-07-08] MEDS: FLUTICASONE/VILANTEROL 100-25 INH SCH (08:26)
[2018-07-08] MEDS: APIXABAN 5 MG TABLET PO SCH ×2 (08:26→20:48)
--- NOTE | 2018-07-08 11:37 | CONS ---
Assessment/Plan Cardiology NYHA: II Heart Failure Type: Acute Heart Failure Type: Diastolic Assessment/Plan Hospital Course (Demo Recall) Acute decompensated diastolic congestive heart failure Labile blood pressure Paroxysmal atrial fibrillation History of COPD Normal nuclear cardiac perfusion study 12/25/2017 Preserved left ventricular systolic ejection fraction echocardiogram 07/05/2018 ASD status post surgical repair -Shortness of breath as well as lower extremity edema is improving on current regimen of Lasix and Aldactone. Adjust to p.o. -Heart rate trend overall better, continue beta-devon as tolerated -DC planning Consultation Date/Type/Reason Admit Date/Time Jul 05, 2018 at 03:44 Initial Consult Date Type of Consult Cardiology Date/Time of Note DATE: 07/08/18 TIME: 11:35 24 HR Interval Summary Free Text/Dictation Denies shortness of breath, lower extremity swelling is improving Exam/Review of Systems Vital Signs Vitals Vital Signs Date Temp Pulse Resp B/P (MAP) Pulse Ox O2 O2 Flow FiO2 Time Delivery Rate 07/08/18 98.6 85 17 95/60 (72) 98 11:17 07/08/18 Room Air 04:09 07/05/18 21 07:43 Intake and Output 07/07/18 07/07/18 07/08/18 1515:00 23:00 07:00 IntakeIntake Total 350 ml 200 ml OutputOutput Total 150 ml 300 ml BalanceBalance 200 ml -100 ml Exam Exam No apparent distress Constitutional: alert, oriented Head: normocephalic Respiratory: other (Coarse breath sounds bilaterally, no wheezing) Cardiovascular: regular rate and rhythm (S1-S2 heard) Gastrointestinal: soft, non-tender, bowel sounds Extremities: edema Labs Result Diagram: 07/08/1822 07/08/18 0522 Results 24hrs Laboratory Tests Test 07/08/18 05:22 White Blood Count 10.2 Red Blood Count 2.89 L Hemoglobin 9.2 L Hematocrit 27.7 L Mean Corpuscular Volume 95.8 Mean Corpuscular Hemoglobin 31.8 Mean Corpuscular Hemoglobin Concent 33.2 Red Cell Distribution Width 15.3 H Platelet Count 198 Mean Platelet Volume 10.8 H Immature Granulocytes % 0.500 H Neutrophils % 58.4 Lymphocytes % 29.7 Monocytes % 8.8 Eosinophils % 2.2 Basophils % 0.4 Nucleated Red Blood Cells % 0.0 Immature Granulocytes # 0.050 H Neutrophils # 6.0 Lymphocytes # 3.0 H Monocytes # 0.9 Eosinophils # 0.2 Basophils # 0.0 Nucleated Red Blood Cells # 0.0 Sodium Level 135 Potassium Level 4.0 Chloride Level 98 Carbon Dioxide Level 30 Anion Gap 7 Blood Urea Nitrogen 11 Creatinine 0.68 Glucose Level 83 Calcium Level 7.8 L Phosphorus Level 3.7 Magnesium Level 2.1 Albumin 1.9 L Medications Medications Current Medications Fluticasone/ Vilanterol (Breo Ellipta 100-25 Mcg Inh) 1 inh DAILY INH Last administered on 07/08/18 08:26; Admin Dose 1 INH; Start 07/05/18 at 09:00 Albuterol (Proventil 0.083% (Neb)) 2.5 mg Q2H RESP THERAPY PRN HHN SHORTNESS OF BREATH Last administered on 07/05/18 07:43; Admin Dose 2.5 MG; Start 07/05/18 at 05:00 IV Flush (NS 3 ml) 3 ml PER PROTOCOL IV ; Start 07/05/18 at 05:00 Ondansetron HCl (Zofran Inj) 4 mg Q6H PRN IV NAUSEA/VOMITING; Start 07/05/18 at 05:00 Nitroglycerin (Nitroglycerin (Sl Tab) 0.4 Mg) 1 tab Q5M PRN SL .CHEST PAIN; Start 07/05/18 at 05:00 Acetaminophen (Tylenol Tab) 650 mg Q6H PRN PO .PAIN 1-3 OR TEMP; Start 07/05/18 at 05:00 Acetaminophen/ Hydrocodone Bitart ([place] (5/325)) 1 tab Q6H PRN PO .PAIN 4-6; Start 07/05/18 at 05:00 Docusate Sodium (Colace) 100 mg Q12H PRN PO .CONSTIPATION; Start 07/05/18 at 05:00 Magnesium Hydroxide (Milk Of Mag) 30 ml DAILY PRN PO .CONSTIPATION; Start at 05:00 Pantoprazole (Protonix Tab) 40 mg DAILY@06 PO Last administered on 07/08/18at 05:42; Admin Dose 40 MG; Start 07/05/18 at 06:00 Apixaban (Eliquis) 5 mg BID PO Last administered on 07/08/18 08:26; Admin Dose 5 MG; Start 07/05/18 at 09:00 Morphine Sulfate (morphine) 6 mg Q4H PRN PO SEVERE PAIN LEVEL 7-10; Start 07/05/18 at 20:30 Furosemide (Lasix) 20 mg BID DIURETICS IV Last administered on 07/07/18at 17:40; Admin Dose 20 MG; Start 07/06/18 at 18:00 Spironolactone (Aldactone) 12.5 mg BID DIURETICS PO Last administered on 07/07/18at 17:42; Admin Dose 12.5 MG; Start 07/06/18 at 18:00 Metoprolol Tartrate (Lopressor) 25 mg Q8 PO Last administered on 07/07/18at 15:01; Admin Dose 25 MG; Start 07/07/18 at 14:00 Gabapentin (Neurontin) 300 mg QHS PO ; Start 07/08/18 at 21:00 Ranulfo Gold DO Jul 08, 2018 11:37
--- NOTE | 2018-07-08 14:03 | PN ---
Date/Time of Note Date/Time of Note DATE: 07/08/18 TIME: 13:55 Assessment/Plan VTE Prophylaxis Risk score (from Ns)>0 risk: 4 SCD applied (from Ns): No SCD contraindicated: patient refusal Pharmacological prophylaxis: LMWH Lines/Catheters IV [facility]ter [facility]from [facility] Saline Lock Urinary Cath still in place: No Assessment/Plan Assessment/Plan 1. Acute on chronic Diastolic HF- improving - Cardiology on board and appreciate recommendations. Transitioned to PO diuretics this am and will continue monitoring I/Os - Lasix and Aldactone on board - ECHO results noted - Initial BNP elevated 2. Atrial fib - Continue on BB for better control - will continue on Eliquis 3. Acute chest pain- resolved - last stress was 12/2017 and negative 4. COPD - continue neb treatments 5. Pulm HTN - O2 as needed 6. Peripheral neuropathy - Will change gabapentin to qhs since patient feels groggy 7. Disposition - SW consulted per patients request - If doing well on PO diuretics and swelling continues to improve, will d/c in next 24-48 hours Result Diagram: 07/08/18 0522 07/08/18 0522 Results 24hrs Laboratory Tests Test 07/08/18 05:22 White Blood Count 10.2 Red Blood Count 2.89 L Hemoglobin 9.2 L Hematocrit 27.7 L Mean Corpuscular Volume 95.8 Mean Corpuscular Hemoglobin 31.8 Mean Corpuscular Hemoglobin Concent 33.2 Red Cell Distribution Width 15.3 H Platelet Count 198 Mean Platelet Volume 10.8 H Immature Granulocytes % 0.500 H Neutrophils % 58.4 Lymphocytes % 29.7 Monocytes % 8.8 Eosinophils % 2.2 Basophils % 0.4 Nucleated Red Blood Cells % 0.0 Immature Granulocytes # 0.050 H Neutrophils # 6.0 Lymphocytes # 3.0 H Monocytes # 0.9 Eosinophils # 0.2 Basophils # 0.0 Nucleated Red Blood Cells # 0.0 Sodium Level 135 Potassium Level 4.0 Chloride Level 98 Carbon Dioxide Level 30 Anion Gap 7 Blood Urea Nitrogen 11 Creatinine 0.68 Glucose Level 83 Calcium Level 7.8 L Phosphorus Level 3.7 Magnesium Level 2.1 Albumin 1.9 L Subjective 24 Hr Interval Summary Free Text/Dictation Patient states her legs feel heavy this am and states gabapentin is making her drowsy. No acute overnight events. Exam/Review of Systems Exam Vitals Vital Signs Date Temp Pulse Resp B/P (MAP) Pulse Ox O2 O2 Flow FiO2 Time Delivery Rate 07/08/18 78 12:18 07/08/18 98.6 17 95/60 (72) 98 11:17 07/08/18 Room Air 04:09 07/05/18 21 07:43 Intake and Output 07/07/18 07/07/18 07/08/18 1515:00 23:00 07:00 IntakeIntake Total 350 ml 200 ml OutputOutput Total 150 ml 300 ml BalanceBalance 200 ml -100 ml Exam General: Patient is a pleasant female, no acute distress Neck: Supple Lungs: Diminished at bases, no wheezing Heart: Normal S1-S2, irregular rhythm and rate controlled. no murmurs Abdomen: Soft , nontender, nondistended , bowel sounds are present. No guarding no rebound tenderness Extremities: Bilateral 1+ pitting edema feet bilaterally, nontender to palpation Skin: no rashes Results Results 24hrs Laboratory Tests Test 07/08/18 05:22 White Blood Count 10.2 Red Blood Count 2.89 L Hemoglobin 9.2 L Hematocrit 27.7 L Mean Corpuscular Volume 95.8 Mean Corpuscular Hemoglobin 31.8 Mean Corpuscular Hemoglobin Concent 33.2 Red Cell Distribution Width 15.3 H Platelet Count 198 Mean Platelet Volume 10.8 H Immature Granulocytes % 0.500 H Neutrophils % 58.4 Lymphocytes % 29.7 Monocytes % 8.8 Eosinophils % 2.2 Basophils % 0.4 Nucleated Red Blood Cells % 0.0 Immature Granulocytes # 0.050 H Neutrophils # 6.0 Lymphocytes # 3.0 H Monocytes # 0.9 Eosinophils # 0.2 Basophils # 0.0 Nucleated Red Blood Cells # 0.0 Sodium Level 135 Potassium Level 4.0 Chloride Level 98 Carbon Dioxide Level 30 Anion Gap 7 Blood Urea Nitrogen 11 Creatinine 0.68 Glucose Level 83 Calcium Level 7.8 L Phosphorus Level 3.7 Magnesium Level 2.1 Albumin 1.9 L Medications Medication Current Medications Fluticasone/ Vilanterol (Breo Ellipta 100-25 Mcg Inh) 1 inh DAILY INH Last administered on 07/08/18at 08:26; Admin Dose 1 INH; Start 07/05/18 at 09:00 Albuterol (Proventil 0.083% (Neb)) 2.5 mg Q2H RESP THERAPY PRN HHN SHORTNESS OF BREATH Last administered on 07/05/18at 07:43; Admin Dose 2.5 MG; Start 07/05/18 at 05:00 IV Flush (NS 3 ml) 3 ml PER PROTOCOL IV ; Start 07/05/18 at 05:00 Ondansetron HCl (Zofran Inj) 4 mg Q6H PRN IV NAUSEA/VOMITING; Start 07/05/18 at 05:00 Nitroglycerin (Nitroglycerin (Sl Tab) 0.4 Mg) 1 tab Q5M PRN SL .CHEST PAIN; Start 07/05/18 at 05:00 Acetaminophen (Tylenol Tab) 650 mg Q6H PRN PO .PAIN 1-3 OR TEMP; Start 07/05/18 at 05:00 Acetaminophen/ Hydrocodone Bitart ([place] (5/325)) 1 tab Q6H PRN PO .PAIN 4-6; Start 07/05/18 at 05:00 Docusate Sodium (Colace) 100 mg Q12H PRN PO .CONSTIPATION; Start 07/05/18 at 05:00 Magnesium Hydroxide (Milk Of Mag) 30 ml DAILY PRN PO .CONSTIPATION; Start 07/05 at 05:00 Pantoprazole (Protonix Tab) 40 mg DAILY@06 PO Last administered on 07/08/18at 05:42; Admin Dose 40 MG; Start 07/05/18 at 06:00 Apixaban (Eliquis) 5 mg BID PO Last administered on 07/08/18at 08:26; Admin Dose 5 MG; Start 07/05/18 at 09:00 Morphine Sulfate (morphine) 6 mg Q4H PRN PO SEVERE PAIN LEVEL 7-10; Start 07/05/18 at 20:30 Spironolactone (Aldactone) 12.5 mg BID DIURETICS PO Last administered on 07/07/18at 17:42; Admin Dose 12.5 MG; Start 07/06/18 at 18:00 Metoprolol Tartrate (Lopressor) 25 mg Q8 PO Last administered on 07/07/18at 15:01; Admin Dose 25 MG; Start 07/07/18 at 14:00 Gabapentin (Neurontin) 300 mg QHS PO ; Start 07/08/18 at 21:00 Furosemide (Lasix) 20 mg BID DIURETICS PO ; Start 07/08/18 at 18:00 NEIL TERRELL MDb 22, 2019 14:03
[2018-07-08] MEDS: FUROSEMIDE 20 MG TAB PO SCH (18:11)
[2018-07-08] MEDS ORDERED: GABAPENTIN 300 MG CAP PO SCH (21:00)
[2018-07-09] VITALS (12 sets, daily range): BP systolic 84–107; BP diastolic 54–69; PULSE 75–132; RESP 18
[2018-07-09] MEDS: METOPROLOL 25 MG TAB PO SCH ×3 (06:08→21:12)
[2018-07-09] MEDS: PANTOPRAZOLE (EC) 40 MG TAB PO SCH (06:08)
[2018-07-09] MEDS: SPIRONOLACTONE 25 MG TAB PO SCH ×2 (06:09→18:35)
[2018-07-09] MEDS: FUROSEMIDE 20 MG TAB PO SCH ×2 (06:09→18:00)
--- NOTE | 2018-07-09 08:19 | CONS ---
Assessment/Plan Cardiology NYHA: II Heart Failure Type: Acute Heart Failure Type: Diastolic Assessment/Plan Assessment/Plan (Daily) Acute decompensated diastolic congestive heart failure Labile blood pressure Paroxysmal atrial fibrillation History of COPD Normal nuclear cardiac perfusion study 12/25/2017 Preserved left ventricular systolic ejection fraction echocardiogram 07/05/2018 ASD status post surgical repair -Shortness of breath as well as lower extremity edema is improving on current regimen of Lasix and Aldactone. continue po lasix -Heart rate trend overall better, continue beta-devon as tolerated - Consultation Date/Type/Reason Admit Date/Time Jul 05, 2018 at 03:44 Initial Consult Date Type of Consult Cardiology Date/Time of Note DATE: 07/09/18 TIME: 08:18 24 HR Interval Summary Free Text/Dictation The patient wiht no complaints Exam/Review of Systems Vital Signs Vitals Vital Signs Date Temp Pulse Resp B/P (MAP) Pulse Ox O2 O2 Flow FiO2 Time Delivery Rate 07/09/18 81 18 91/54 (66) 95 07:14 07/09/18 97.4 04:00 07/08/18 Room Air 04:09 07/05/18 21 07:43 Intake and Output 07/08/18 07/08/18 07/09/18 1515:00 23:00 07:00 IntakeIntake Total 800 ml 300 ml BalanceBalance 800 ml 300 ml Labs Result Diagram: 07/09/1852707/09/18527 Results 24hrs Laboratory Tests Test 07/09/18 05:28 White Blood Count 10.9 H Red Blood Count 3.05 L Hemoglobin 9.6 L Hematocrit 28.9 L Mean Corpuscular Volume 94.8 Mean Corpuscular Hemoglobin 31.5 Mean Corpuscular Hemoglobin Concent 33.2 Red Cell Distribution Width 15.0 H Platelet Count 234 Mean Platelet Volume 11.0 H Immature Granulocytes % 0.600 H Neutrophils % 61.4 Lymphocytes % 27.3 Monocytes % 8.7 Eosinophils % 1.7 Basophils % 0.3 Nucleated Red Blood Cells % 0.0 Immature Granulocytes # 0.060 H Neutrophils # 6.7 Lymphocytes # 3.0 H Monocytes # 1.0 H Eosinophils # 0.2 Basophils # 0.0 Nucleated Red Blood Cells # 0.0 Sodium Level 133 L Potassium Level 3.9 Chloride Level 98 Carbon Dioxide Level 30 Anion Gap 5 Blood Urea Nitrogen 12 Creatinine 0.81 Glucose Level 96 Calcium Level 8.1 L Phosphorus Level 3.8 Magnesium Level 1.9 Albumin 2.2 L Medications Medications Current Medications Fluticasone/ Vilanterol (Breo Ellipta 100-25 Mcg Inh) 1 inh DAILY INH Last administered on 07/08/18 08:26; Admin Dose 1 INH; Start 07/05/18 at 09:00 Albuterol (Proventil 0.083% (Neb)) 2.5 mg Q2H RESP THERAPY PRN HHN SHORTNESS OF BREATH Last administered on 07/05/18at 07:43; Admin Dose 2.5 MG; Start 07/05/18 at 05:00 IV Flush (NS 3 ml) 3 ml PER PROTOCOL IV ; Start 07/05/18 at 05:00 Ondansetron HCl (Zofran Inj) 4 mg Q6H PRN IV NAUSEA/VOMITING; Start 07/05/18 at 05:00 Nitroglycerin (Nitroglycerin (Sl Tab) 0.4 Mg) 1 tab Q5M PRN SL .CHEST PAIN; Start 07/05/18 at 05:00 Acetaminophen (Tylenol Tab) 650 mg Q6H PRN PO .PAIN 1-3 OR TEMP; Start 07/05/18 at 05:00 Acetaminophen/ Hydrocodone Bitart ([place] (5/325)) 1 tab Q6H PRN PO .PAIN 4-6; Start 07/05/18 at 05:00 Docusate Sodium (Colace) 100 mg Q12H PRN PO .CONSTIPATION; Start 07/05/18 at 05:00 Magnesium Hydroxide (Milk Of Mag) 30 ml DAILY PRN PO .CONSTIPATION; Start 07/05/18 at 05:00 Pantoprazole (Protonix Tab) 40 mg DAILY@06 PO Last administered on 07/09/18 06:08; Admin Dose 40 MG; Start 07/05/18 at 06:00 Apixaban (Eliquis) 5 mg BID PO Last administered on 07/08/18at 20:48; Admin Dose 5 MG; Start 07/05/18 at 09:00 Morphine Sulfate (morphine) 6 mg Q4H PRN PO SEVERE PAIN LEVEL 7-10; Start 07/05/18 at 20:30 Spironolactone (Aldactone) 12.5 mg BID DIURETICS PO Last administered on 07/09/18 06:09; Admin Dose 12.5 MG; Start 07/06/18 at 18:00 Metoprolol Tartrate (Lopressor) 25 mg Q8 PO Last administered on 07/09/18at 06:08; Admin Dose 25 MG; Start 07/07/18 at 14:00 Gabapentin (Neurontin) 300 mg QHS PO Last administered on 07/08/18at 20:48; Admin Dose 300 MG; Start 07/08/18 at 21:00 Furosemide (Lasix) 20 mg BID DIURETICS PO Last administered on 07/09/18at 06:09; Admin Dose 20 MG; Start 07/08/18 at 18:00 BHARAT ROACH MD Jul 09, 2018 08:19
[2018-07-09] MEDS: FLUTICASONE/VILANTEROL 100-25 INH SCH (09:44)
[2018-07-09] MEDS: APIXABAN 5 MG TABLET PO SCH ×2 (09:44→21:12)
--- NOTE | 2018-07-09 13:34 | PN ---
Date/Time of Note Date/Time of Note DATE: 07/09/18 TIME: 13:30 Assessment/Plan VTE Prophylaxis Risk score (from Ns)>0 risk: 4 SCD applied (from Ns): No SCD contraindicated: other Pharmacological prophylaxis: apixaban Lines/Catheters IV Catheter Type (from Nrs): Saline Lock Urinary Cath still in place: No Assessment/Plan Assessment/Plan 1. Acute on chronic Diastolic HF- improving - Swelling of LE improving significantly but need to monitor Na levels since starting to drop - Cardiology on board and appreciate recommendations. - Lasix and Aldactone on board - ECHO results noted - Initial BNP elevated 2. Atrial fib - Episodes of tachycardia overnight with HR up to 160s - BB on board and will adjust as needed for better control - Cardiology on board and appreciate recommendations - will continue on Eliquis 3. Acute chest pain- resolved - last stress test was 12/2017 and negative 4. COPD - continue neb treatments 5. Pulm HTN - O2 as needed 6. Peripheral neuropathy - will d/c gabapentin given not tolerating 7. Disposition - Patient feeling dizzy with loss of balance this am. medications adjustments made. When HR better controlled and remains stable, will d/c home Result Diagram: 07/09/1852707/09/18527 Results 24hrs Laboratory Tests Test 07/09/18 05:28 White Blood Count 10.9 H Red Blood Count 3.05 L Hemoglobin 9.6 L Hematocrit 28.9 L Mean Corpuscular Volume 94.8 Mean Corpuscular Hemoglobin 31.5 Mean Corpuscular Hemoglobin Concent 33.2 Red Cell Distribution Width 15.0 H Platelet Count 234 Mean Platelet Volume 11.0 H Immature Granulocytes % 0.600 H Neutrophils % 61.4 Lymphocytes % 27.3 Monocytes % 8.7 Eosinophils % 1.7 Basophils % 0.3 Nucleated Red Blood Cells % 0.0 Immature Granulocytes # 0.060 H Neutrophils # 6.7 Lymphocytes # 3.0 H Monocytes # 1.0 H Eosinophils # 0.2 Basophils # 0.0 Nucleated Red Blood Cells # 0.0 Sodium Level 133 L Potassium Level 3.9 Chloride Level 98 Carbon Dioxide Level 30 Anion Gap 5 Blood Urea Nitrogen 12 Creatinine 0.81 Glucose Level 96 Calcium Level 8.1 L Phosphorus Level 3.8 Magnesium Level 1.9 Albumin 2.2 L Subjective 24 Hr Interval Summary Free Text/Dictation Patient states shes not feeling well this am. She feels dizzy and lightheaded. Almost lost her balance when walking to the commode which is unusual for her. Exam/Review of Systems Exam Vitals Vital Signs Date Temp Pulse Resp B/P (MAP) Pulse Ox O2 O2 Flow FiO2 Time Delivery Rate 07/09/18 81 12:01 07/09/18 18 91/54 (66) 95 07:14 07/09/18 97.4 04:00 07/08/18 Room Air 04:09 07/05/18 21 07:43 Intake and Output 07/08/18 07/08/18 07/09/18 1515:00 23:00 07:00 IntakeIntake Total 800 ml 300 ml BalanceBalance 800 ml 300 ml Exam General: Patient is a pleasant female, no acute distress Neck: Supple Lungs: Diminished at bases, no wheezing Heart: Normal S1-S2, irregular rhythm and rate controlled. no murmurs Abdomen: Soft , nontender, nondistended , bowel sounds are present. No guarding no rebound tenderness Extremities: Trace pitting edema ankles bilaterally, mildly tender Skin: no rashes Results Results 24hrs Laboratory Tests Test 07/09/18 05:28 White Blood Count 10.9 H Red Blood Count 3.05 L Hemoglobin 9.6 L Hematocrit 28.9 L Mean Corpuscular Volume 94.8 Mean Corpuscular Hemoglobin 31.5 Mean Corpuscular Hemoglobin Concent 33.2 Red Cell Distribution Width 15.0 H Platelet Count 234 Mean Platelet Volume 11.0 H Immature Granulocytes % 0.600 H Neutrophils % 61.4 Lymphocytes % 27.3 Monocytes % 8.7 Eosinophils % 1.7 Basophils % 0.3 Nucleated Red Blood Cells % 0.0 Immature Granulocytes # 0.060 H Neutrophils # 6.7 Lymphocytes # 3.0 H Monocytes # 1.0 H Eosinophils # 0.2 Basophils # 0.0 Nucleated Red Blood Cells # 0.0 Sodium Level 133 L Potassium Level 3.9 Chloride Level 98 Carbon Dioxide Level 30 Anion Gap 5 Blood Urea Nitrogen 12 Creatinine 0.81 Glucose Level 96 Calcium Level 8.1 L Phosphorus Level 3.8 Magnesium Level 1.9 Albumin 2.2 L Medications Medication Current Medications Fluticasone/ Vilanterol (Breo Ellipta 100-25 Mcg Inh) 1 inh DAILY INH Last administered on 07/09/18at 09:44; Admin Dose 1 INH; Start 07/05/18 at 09:00 Albuterol (Proventil 0.083% (Neb)) 2.5 mg Q2H RESP THERAPY PRN HHN SHORTNESS OF BREATH Last administered on 07/05/18at 07:43; Admin Dose 2.5 MG; Start 07/05/18 at 05:00 IV Flush (NS 3 ml) 3 ml PER PROTOCOL IV ; Start 07/05/18 at 05:00 Ondansetron HCl (Zofran Inj) 4 mg Q6H PRN IV NAUSEA/VOMITING; Start 07/05/18 at 05:00 Nitroglycerin (Nitroglycerin (Sl Tab) 0.4 Mg) 1 tab Q5M PRN SL .CHEST PAIN; Start 07/05/18 at 05:00 Acetaminophen (Tylenol Tab) 650 mg Q6H PRN PO .PAIN 1-3 OR TEMP; Start 07/05/18 at 05:00 Acetaminophen/ Hydrocodone Bitart ([place] (5/325)) 1 tab Q6H PRN PO .PAIN 4-6; Start 07/05/18 at 05:00 Docusate Sodium (Colace) 100 mg Q12H PRN PO .CONSTIPATION; Start 07/05/18 at 05:00 Magnesium Hydroxide (Milk Of Mag) 30 ml DAILY PRN PO .CONSTIPATION; Start 07/05/18 at 05:00 Pantoprazole (Protonix Tab) 40 mg DAILY@06 PO Last administered on 07/09/18at 06:08; Admin Dose 40 MG; Start 07/05/18 at 06:00 Apixaban (Eliquis) 5 mg BID PO Last administered on 07/09/18at 09:44; Admin Dose 5 MG; Start 07/05/18 at 09:00 Morphine Sulfate (morphine) 6 mg Q4H PRN PO SEVERE PAIN LEVEL 7-10; Start 07/05/18 at 20:30 Spironolactone (Aldactone) 12.5 mg BID DIURETICS PO Last administered on 06:09; Admin Dose 12.5 MG; Start 07/06/18 at 18:00 Metoprolol Tartrate (Lopressor) 25 mg Q8 PO Last administered on 07/09/18 06:08; Admin Dose 25 MG; Start 07/07/18 at 14:00 Furosemide (Lasix) 20 mg BID DIURETICS PO Last administered on 07/09/18at 06:09; Admin Dose 20 MG; Start 07/08/18 at 18:00 NEIL TERRELL MD Jul 09, 2018 13:34
[2018-07-10] VITALS (9 sets, daily range): BP systolic 86–129; BP diastolic 55–100; PULSE 80–108; RESP 16–18
[2018-07-10] MEDS: PANTOPRAZOLE (EC) 40 MG TAB PO SCH (05:50)
[2018-07-10] MEDS: SPIRONOLACTONE 25 MG TAB PO SCH ×2 (05:50→17:49)
[2018-07-10] MEDS: FUROSEMIDE 20 MG TAB PO SCH ×2 (05:50→17:49)
[2018-07-10] MEDS: METOPROLOL 25 MG TAB PO SCH ×3 (05:51→21:05)
[2018-07-10] MEDS: FLUTICASONE/VILANTEROL 100-25 INH SCH (08:24)
[2018-07-10] MEDS: APIXABAN 5 MG TABLET PO SCH ×2 (08:25→21:05)
--- NOTE | 2018-07-10 08:39 | PN ---
Date/Time of Note Date/Time of Note DATE: 07/10/18 TIME: 08:39 Assessment/Plan VTE Prophylaxis Risk score (from Ns)>0 risk: 5 SCD applied (from Ns): No SCD contraindicated: patient refusal Pharmacological prophylaxis: apixaban Lines/Catheters IV [facility]from [facility] Saline Lock Urinary Cath still in place: No Assessment/Plan Assessment/Plan 1. Acute on chronic Diastolic HF-resolving - Swelling resolved - Cardiology on board and appreciate recommendations. - Lasix and Aldactone on board - ECHO results noted - Initial BNP elevated 2. Atrial fib - Better rate controlled but now BP running on lower side. Will touch base with Cardiology on recommendations for dose adjustments to BB - Cardiology on board and appreciate recommendations - will continue on Eliquis 3. Acute chest pain- resolved - last stress test was 12/2017 and negative 4. COPD - continue neb treatments 5. Pulm HTN - O2 as needed 6. Peripheral neuropathy - improved with decreased swelling 7. Disposition - BP running low this am and will need to touch base with Cardiology on dose adjustments for medications. HR better controlled but episodes of RVR - Once HR and BP stable, can d/c home with HHPT Result Diagram: 07/10/18 0502 07/10/18 0503 Results 24hrs Laboratory Tests Test 07/10/18 05:02 07/10/18 05:03 White Blood Count 12.0 H Red Blood Count 3.02 L Hemoglobin 9.4 L Hematocrit 28.6 L Mean Corpuscular Volume 94.7 Mean Corpuscular Hemoglobin 31.1 Mean Corpuscular Hemoglobin Concent 32.9 Red Cell Distribution Width 15.4 H Platelet Count 247 Mean Platelet Volume 10.9 H Immature Granulocytes % 0.700 H Neutrophils % 63.9 Lymphocytes % 23.9 Monocytes % 9.7 Eosinophils % 1.3 Basophils % 0.5 Nucleated Red Blood Cells % 0.0 Immature Granulocytes # 0.080 H Neutrophils # 7.7 H Lymphocytes # 2.9 Monocytes # 1.2 H Eosinophils # 0.2 Basophils # 0.1 Nucleated Red Blood Cells # 0.0 Sodium Level 137 Potassium Level 3.3 L Chloride Level 99 Carbon Dioxide Level 30 Anion Gap 8 Blood Urea Nitrogen 15 Creatinine 0.69 Glucose Level 100 Calcium Level 8.0 L Phosphorus Level 3.8 Magnesium Level 1.9 Albumin 2.2 L Subjective 24 Hr Interval Summary Free Text/Dictation Patient states shes feeling better this am but thighs feel heavy. No acute overnight events. Exam/Review of Systems Exam Vitals Vital Signs Date Temp Pulse Resp B/P (MAP) Pulse Ox O2 O2 Flow FiO2 Time Delivery Rate 07/10/18 80 18 86/55 (65) 92 07:14 07/10/18 98.1 04:00 07/08/18 Room Air 04:09 Intake and Output 07/09/18 07/09/18 07/10/18 1515:00 23:00 07:00 IntakeIntake Total 800 ml 200 ml BalanceBalance 800 ml 200 ml Exam General: Patient is a pleasant female, no acute distress Neck: Supple Lungs: Diminished at bases, no wheezing Heart: Normal S1-S2, irregular rhythm and rate controlled. no murmurs Abdomen: Soft , nontender, nondistended , bowel sounds are present. No guarding no rebound tenderness Extremities: no edema appreciated Skin: no rashes Results Results 24hrs Laboratory Tests Test 07/10/18 05:02 07/10/18 05:03 White Blood Count 12.0 H Red Blood Count 3.02 L Hemoglobin 9.4 L Hematocrit 28.6 L Mean Corpuscular Volume 94.7 Mean Corpuscular Hemoglobin 31.1 Mean Corpuscular Hemoglobin Concent 32.9 Red Cell Distribution Width 15.4 H Platelet Count 247 Mean Platelet Volume 10.9 H Immature Granulocytes % 0.700 H Neutrophils % 63.9 Lymphocytes % 23.9 Monocytes % 9.7 Eosinophils % 1.3 Basophils % 0.5 Nucleated Red Blood Cells % 0.0 Immature Granulocytes # 0.080 H Neutrophils # 7.7 H Lymphocytes # 2.9 Monocytes # 1.2 H Eosinophils # 0.2 Basophils # 0.1 Nucleated Red Blood Cells # 0.0 Sodium Level 137 Potassium Level 3.3 L Chloride Level 99 Carbon Dioxide Level 30 Anion Gap 8 Blood Urea Nitrogen 15 Creatinine 0.69 Glucose Level 100 Calcium Level 8.0 L Phosphorus Level 3.8 Magnesium Level 1.9 Albumin 2.2 L Medications Medication Current Medications Fluticasone/ Vilanterol (Breo Ellipta 100-25 Mcg Inh) 1 inh DAILY INH Last administered on 07/10/18at 08:24; Admin Dose 1 INH; Start 07/05/18 at 09:00 Albuterol (Proventil 0.083% (Neb)) 2.5 mg Q2H RESP THERAPY PRN HHN SHORTNESS OF BREATH Last administered on 07/05/18 07:43; Admin Dose 2.5 MG; Start 07/05/18 at 05:00 IV Flush (NS 3 ml) 3 ml PER PROTOCOL IV ; Start 07/05/18 at 05:00 Ondansetron HCl (Zofran Inj) 4 mg Q6H PRN IV NAUSEA/VOMITING; Start 07/05/18 at 05:00 Nitroglycerin (Nitroglycerin (Sl Tab) 0.4 Mg) 1 tab Q5M PRN SL .CHEST PAIN; Start 07/05/18 at 05:00 Acetaminophen (Tylenol Tab) 650 mg Q6H PRN PO .PAIN 1-3 OR TEMP; Start 07/05/18 at 05:00 Acetaminophen/ Hydrocodone Bitart ([place] (5/325)) 1 tab Q6H PRN PO .PAIN 4-6; Start 07/05/18 at 05:00 Docusate Sodium (Colace) 100 mg Q12H PRN PO .CONSTIPATION; Start 07/05/18 at 05:00 Magnesium Hydroxide (Milk Of Mag) 30 ml DAILY PRN PO .CONSTIPATION; Start 07/05/18 at 05:00 Pantoprazole (Protonix Tab) 40 mg DAILY@06 PO Last administered on 07/10/18 05:50; Admin Dose 40 MG; Start 07/05/18 at 06:00 Apixaban (Eliquis) 5 mg BID PO Last administered on 07/10/18 08:25; Admin Dose 5 MG; Start 07/05/18 at 09:00 Morphine Sulfate (morphine) 6 mg Q4H PRN PO SEVERE PAIN LEVEL 7-10; Start 07/05/18 at 20:30 Spironolactone (Aldactone) 12.5 mg BID DIURETICS PO Last administered on 07/10/18 05:50; Admin Dose 12.5 MG; Start 07/06/18 at 18:00 Metoprolol Tartrate (Lopressor) 25 mg Q8 PO Last administered on 07/10/18 05:51; Admin Dose 25 MG; Start 07/07/18 at 14:00 Furosemide (Lasix) 20 mg BID DIURETICS PO Last administered on 07/10/18 05:50; Admin Dose 20 MG; Start 07/08/18 at 18:00 NEIL TERRELL MD Jul 10, 2018 08:39
[2018-07-10] MEDS: POTASSIUM CHLORIDE (SR) 20 MEQ TAB PO SCH (09:34)
--- NOTE | 2018-07-10 12:16 | CONS ---
Assessment/Plan Cardiology NYHA: II Heart Failure Type: Acute Heart Failure Type: Diastolic Assessment/Plan Hospital Course (Demo Recall) Acute decompensated diastolic congestive heart failure Labile blood pressure Paroxysmal atrial fibrillation History of COPD Normal nuclear cardiac perfusion study 12/25/2017 Preserved left ventricular systolic ejection fraction echocardiogram 07/05/2018 ASD status post surgical repair -Shortness of breath as well as lower extremity edema is improving on current regimen of Lasix and Aldactone. Continue as renal function and blood pressure permits -Heart rate trend overall improved, titrate beta-devon as needed -DC planning Consultation Date/Type/Reason Admit Date/Time Jul 05, 2018 at 03:44 Initial Consult Date Type of Consult Cardiology Date/Time of Note DATE: 07/10/18 TIME: 12:15 24 HR Interval Summary Free Text/Dictation Denies shortness of breath, palpitations, chest pain Exam/Review of Systems Vital Signs Vitals Vital Signs Date Temp Pulse Resp B/P (MAP) Pulse Ox O2 O2 Flow FiO2 Time Delivery Rate 07/10/18 98.0 90 18 92/56 (68) 92 11:36 07/08/18 Room Air 04:09 Intake and Output 07/09/18 07/09/18 07/10/18 1515:00 23:00 07:00 IntakeIntake Total 800 ml 200 ml BalanceBalance 800 ml 200 ml Exam Constitutional: alert, oriented (No apparent distress) Head: normocephalic Respiratory: other (Coarse breath sounds bilaterally, no wheezing) Cardiovascular: regular rate and rhythm (S1-S2 heard) Gastrointestinal: soft, non-tender, bowel sounds Extremities: edema Labs Result Diagram: 07/10/18 0502 07/10/18 0503 Results 24hrs Laboratory Tests Test 07/10/18 05:02 07/10/18 05:03 07/10/18 07:25 White Blood Count 12.0 H Red Blood Count 3.02 L Hemoglobin 9.4 L Hematocrit 28.6 L Mean Corpuscular Volume 94.7 Mean Corpuscular Hemoglobin 31.1 Mean Corpuscular Hemoglobin Concent 32.9 Red Cell Distribution Width 15.4 H Platelet Count 247 Mean Platelet Volume 10.9 H Immature Granulocytes % 0.700 H Neutrophils % 63.9 Lymphocytes % 23.9 Monocytes % 9.7 Eosinophils % 1.3 Basophils % 0.5 Nucleated Red Blood Cells % 0.0 Immature Granulocytes # 0.080 H Neutrophils # 7.7 H Lymphocytes # 2.9 Monocytes # 1.2 H Eosinophils # 0.2 Basophils # 0.1 Nucleated Red Blood Cells # 0.0 Sodium Level 137 Potassium Level 3.3 L Chloride Level 99 Carbon Dioxide Level 30 Anion Gap 8 Blood Urea Nitrogen 15 Creatinine 0.69 Glucose Level 100 Calcium Level 8.0 L Phosphorus Level 3.8 Magnesium Level 1.9 Albumin 2.2 L Urine Color RED Urine Clarity CLOUDY A Urine pH 7.0 Urine Specific Fort[place] 1.018 Urine Ketones TRACE A Urine Nitrite NEGATIVE Urine Bilirubin NEGATIVE Urine Urobilinogen 2+ H Urine Leukocyte Esterase 1+ H Urine Microscopic RBC 1 Urine Microscopic WBC 130 H Urine Squamous Epithelial Cells MODERATE Urine Bacteria MANY A Urine Mucus FEW A Urine Hemoglobin NEGATIVE Urine Glucose NEGATIVE Urine Total Protein NEGATIVE Medications Medications Current Medications Fluticasone/ Vilanterol (Breo Ellipta 100-25 Mcg Inh) 1 inh DAILY INH Last administered on 07/10/18at 08:24; Admin Dose 1 INH; Start 07/05/18 at 09:00 Albuterol (Proventil 0.083% (Neb)) 2.5 mg Q2H RESP THERAPY PRN HHN SHORTNESS OF BREATH Last administered on 07/05/18at 07:43; Admin Dose 2.5 MG; Start 07/05/18 at 05:00 IV Flush (NS 3 ml) 3 ml PER PROTOCOL IV ; Start 07/05/18 at 05:00 Ondansetron HCl (Zofran Inj) 4 mg Q6H PRN IV NAUSEA/VOMITING; Start 07/05/18 at 05:00 Nitroglycerin (Nitroglycerin (Sl Tab) 0.4 Mg) 1 tab Q5M PRN SL .CHEST PAIN; Start 07/05/18 at 05:00 Acetaminophen (Tylenol Tab) 650 mg Q6H PRN PO .PAIN 1-3 OR TEMP; Start 07/05/18 at 05:00 Acetaminophen/ Hydrocodone Bitart ([place] (5/325)) 1 tab Q6H PRN PO .PAIN 4-6; Start 07/05/18 at 05:00 Docusate Sodium (Colace) 100 mg Q12H PRN PO .CONSTIPATION; Start 07/05/18 at 05:00 Magnesium Hydroxide (Milk Of Mag) 30 ml DAILY PRN PO .CONSTIPATION; Start 07/05/18 at 05:00 Pantoprazole (Protonix Tab) 40 mg DAILY@06 PO Last administered on 07/10/18 05:50; Admin Dose 40 MG; Start 07/05/18 at 06:00 Apixaban (Eliquis) 5 mg BID PO Last administered on 07/10/18 08:25; Admin Dose 5 MG; Start 07/05/18 at 09:00 Morphine Sulfate (morphine) 6 mg Q4H PRN PO SEVERE PAIN LEVEL 7-10; Start 07/05/18 at 20:30 Spironolactone (Aldactone) 12.5 mg BID DIURETICS PO Last administered on 07/10/18 05:50; Admin Dose 12.5 MG; Start 07/06/18 at 18:00 Metoprolol Tartrate (Lopressor) 25 mg Q8 PO Last administered on 07/10/18 05:51; Admin Dose 25 MG; Start 07/07/18 at 14:00 Furosemide (Lasix) 20 mg BID DIURETICS PO Last administered on 07/10/18 05:50; Admin Dose 20 MG; Start 07/08/18 at 18:00 Potassium Chloride (Klor-Con 20) 40 meq DAILY PO Last administered on 07/10/18 09:34; Admin Dose 40 MEQ; Start 07/10/18 at 09:00 Ranulfo Gold DO Jul 10, 2018 12:16
[2018-07-10] MEDS: CEFTRIAXONE 1 GM/50 ML (PMX) 50 ML IVPB SCH (23:56)
[2018-07-11] VITALS (12 sets, daily range): BP systolic 87–114; BP diastolic 51–76; PULSE 64–110; RESP 17–19
[2018-07-11] MEDS: SPIRONOLACTONE 25 MG TAB PO SCH ×2 (05:41→17:48)
[2018-07-11] MEDS: METOPROLOL 25 MG TAB PO SCH ×2 (05:41→20:30)
[2018-07-11] MEDS: PANTOPRAZOLE (EC) 40 MG TAB PO SCH (05:55)
[2018-07-11] MEDS: FUROSEMIDE 20 MG TAB PO SCH ×2 (05:55→17:48)
[2018-07-11] MEDS: FLUTICASONE/VILANTEROL 100-25 INH SCH (08:36)
[2018-07-11] MEDS: APIXABAN 5 MG TABLET PO SCH (08:36)
[2018-07-11] MEDS: POTASSIUM CHLORIDE (SR) 20 MEQ TAB PO SCH (08:37)
--- NOTE | 2018-07-11 11:49 | PN ---
Date/Time of Note Date/Time of Note DATE: 07/11/18 TIME: 11:48 Objective Vitals Vital Signs Date Temp Pulse Resp B/P (MAP) Pulse Ox O2 O2 Flow FiO2 Time Delivery Rate 07/11/18 97 09:01 07/11/18 98.0 18 112/71 99 07:53 (85) 07/08/18 Room Air 04:09 Intake and Output 07/10/18 07/10/18 07/11/18 1515:00 23:00 07:00 IntakeIntake Total 850 ml 350 ml OutputOutput Total 650 ml 3 ml BalanceBalance 200 ml 347 ml Results Result Diagram: 07/11/1850907/11/18 05 Medications Medications Current Medications Fluticasone/ Vilanterol (Breo Ellipta 100-25 Mcg Inh) 1 inh DAILY INH Last administered on 07/11/18at 08:36; Admin Dose 1 INH; Start 07/05/18 at 09:00 Albuterol (Proventil 0.083% (Neb)) 2.5 mg Q2H RESP THERAPY PRN HHN SHORTNESS OF BREATH Last administered on 07/05/18at 07:43; Admin Dose 2.5 MG; Start 07/05/18 at 05:00 IV Flush (NS 3 ml) 3 ml PER PROTOCOL IV ; Start 07/05/18 at 05:00 Ondansetron HCl (Zofran Inj) 4 mg Q6H PRN IV NAUSEA/VOMITING; Start 07/05/18 at 05:00 Nitroglycerin (Nitroglycerin (Sl Tab) 0.4 Mg) 1 tab Q5M PRN SL .CHEST PAIN; Start 07/05/18 at 05:00 Acetaminophen (Tylenol Tab) 650 mg Q6H PRN PO .PAIN 1-3 OR TEMP; Start 07/05/18 at 05:00 Acetaminophen/ Hydrocodone Bitart ([place] (5/325)) 1 tab Q6H PRN PO .PAIN 4-6 Last administered on 07/11/18at 08:41; Admin Dose 1 TAB; Start 07/05/18 at 05:00 Docusate Sodium (Colace) 100 mg Q12H PRN PO .CONSTIPATION; Start 07/05/18 at 05:00 Magnesium Hydroxide (Milk Of Mag) 30 ml DAILY PRN PO .CONSTIPATION; Start 07/05/18 at 05:00 Pantoprazole (Protonix Tab) 40 mg DAILY@06 PO Last administered on 07/11/18 05:55; Admin Dose 40 MG; Start 07/05/18 at 06:00 Apixaban (Eliquis) 5 mg BID PO Last administered on 07/11/18 08:36; Admin Dose 5 MG; Start 07/05/18 at 09:00; Status Hold Morphine Sulfate (morphine) 6 mg Q4H PRN PO SEVERE PAIN LEVEL 7-10; Start 07/05/18 at 20:30 Spironolactone (Aldactone) 12.5 mg BID DIURETICS PO Last administered on 07/10/18 17:49; Admin Dose 12.5 MG; Start 07/06/18 at 18:00 Metoprolol Tartrate (Lopressor) 25 mg Q8 PO Last administered on 07/10/18 21:05; Admin Dose 25 MG; Start 07/07/18 at 14:00 Furosemide (Lasix) 20 mg BID DIURETICS PO Last administered on 07/11/18 05:55; Admin Dose 20 MG; Start 07/08/18 at 18:00 Potassium Chloride (Klor-Con 20) 40 meq DAILY PO Last administered on 07/11/18 08:37; Admin Dose 40 MEQ; Start 07/10/18 at 09:00 Ceftriaxone Sodium 50 ml @ 100 mls/hr Q24H IVPB Last administered on 07/10/18 23:56; Admin Dose 100 MLS/HR; Start 07/10/18 at 23:00 VTE Prophylaxis Risk score (from Nsg)>0 risk: 4 SCD applied (from Nsg): No SCD contraindication: other Pharmacological prophylaxis: other Lines/Catheters IV Catheter Type: Mol[place] in Place: No Assessment/Plan Hospital Course Subjective Patient states that the bleeding she reported was not really from her urine but more from her rectal area. Objective Physical exam General: Patient is laying in bed and answers questions appropriately Mentation: Patient is alert and oriented 4, Head: Normocephalic atraumatic Eyes: EOMI, pupils reactive to light Neck: Supple, nontender, midline Respiratory: Clear to auscultation bilaterally Cardiovascular: regular rate, no obvious murmurs Gastrointestinal: non-tender to palpation, bowel sounds heard. Neurological: Moves all extremities spontaneously Skin: No new skin lesions Assessment/Plan Acute on chronic Diastolic HF-resolving - Swelling resolved - Cardiology on board and appreciate recommendations. - Lasix and Aldactone on board - ECHO results noted - Initial BNP elevated Atrial fib - Better rate controlled but now BP running on lower side. Will touch base with Cardiology on recommendations for dose adjustments to BB - Cardiology on board and appreciate recommendations - holding eliquis for now due to rectal bleed rectal bleed -mild, hgb stable -GI consulted for possible colonoscopy? -hold eliquis Acute chest pain- resolved - last stress test was 12/2017 and negative COPD - continue neb treatments Pulm HTN - O2 as needed Peripheral neuropathy - improved with decreased swelling Disposition -watch BP -GI consultation pending for rectal bleed ISATU ARDON Jul 11, 2018 11:49
--- NOTE | 2018-07-11 13:18 | CONS ---
Assessment/Plan Cardiology NYHA: II Heart Failure Type: Acute Heart Failure Type: Diastolic Assessment/Plan Hospital Course (Demo Recall) Acute decompensated diastolic congestive heart failure Labile blood pressure Paroxysmal atrial fibrillation History of COPD Normal nuclear cardiac perfusion study 12/25/2017 Preserved left ventricular systolic ejection fraction echocardiogram 07/05/2018 ASD status post surgical repair -Shortness of breath as well as lower extremity edema is improving on current regimen of Lasix and Aldactone. Continue as renal function and blood pressure permits -Heart rate trend overall stable, adjust Lopressor to twice daily dosing -DC planning Consultation Date/Type/Reason Admit Date/Time Jul 05, 2018 at 03:44 Initial Consult Date Type of Consult Cardiology Date/Time of Note DATE: 07/11/18 TIME: 13:17 24 HR Interval Summary Free Text/Dictation Denies shortness of breath, chest pain, palpitations Exam/Review of Systems Vital Signs Vitals Vital Signs Date Temp Pulse Resp B/P (MAP) Pulse Ox O2 O2 Flow FiO2 Time Delivery Rate 07/11/18 98.0 101 17 100/57 97 12:05 (71) 07/08/18 Room Air 04:09 Intake and Output 07/10/18 07/10/18 07/11/18 1515:00 23:00 07:00 IntakeIntake Total 850 ml 350 ml OutputOutput Total 650 ml 3 ml BalanceBalance 200 ml 347 ml Exam Constitutional: alert, oriented (No apparent distress) Respiratory: other (Coarse breath sounds bilaterally, no wheezing) Cardiovascular: regular rate and rhythm (S1-S2 heard) Gastrointestinal: soft, non-tender, bowel sounds Extremities: edema Labs Result Diagram: 07/11/1810 07/11/18 0510 Results 24hrs Laboratory Tests Test 07/11/18 05:10 White Blood Count 12.2 H Red Blood Count 2.92 L Hemoglobin 9.2 L Hematocrit 27.8 L Mean Corpuscular Volume 95.2 Mean Corpuscular Hemoglobin 31.5 Mean Corpuscular Hemoglobin Concent 33.1 Red Cell Distribution Width 15.7 H Platelet Count 262 Mean Platelet Volume 10.9 H Immature Granulocytes % 0.500 H Neutrophils % 62.6 Lymphocytes % 23.5 Monocytes % 11.7 H Eosinophils % 1.5 Basophils % 0.2 Nucleated Red Blood Cells % 0.0 Immature Granulocytes # 0.060 H Neutrophils # 7.6 H Lymphocytes # 2.9 Monocytes # 1.4 H Eosinophils # 0.2 Basophils # 0.0 Nucleated Red Blood Cells # 0.0 Sodium Level 136 Potassium Level 4.1 Chloride Level 101 Carbon Dioxide Level 31 Anion Gap 4 L Blood Urea Nitrogen 17 Creatinine 0.67 Glucose Level 89 Calcium Level 8.0 L Phosphorus Level 3.9 Magnesium Level 1.9 Albumin 2.0 L Medications Medications Current Medications Fluticasone/ Vilanterol (Breo Ellipta 100-25 Mcg Inh) 1 inh DAILY INH Last administered on 07/11/18 08:36; Admin Dose 1 INH; Start 07/05/18 at 09:00 Albuterol (Proventil 0.083% (Neb)) 2.5 mg Q2H RESP THERAPY PRN HHN SHORTNESS OF BREATH Last administered on 07/05/18 07:43; Admin Dose 2.5 MG; Start 07/05/18 at 05:00 IV Flush (NS 3 ml) 3 ml PER PROTOCOL IV ; Start 07/05/18 at 05:00 Ondansetron HCl (Zofran Inj) 4 mg Q6H PRN IV NAUSEA/VOMITING; Start 07/05/18 at 05:00 Nitroglycerin (Nitroglycerin (Sl Tab) 0.4 Mg) 1 tab Q5M PRN SL .CHEST PAIN; Start 07/05/18 at 05:00 Acetaminophen (Tylenol Tab) 650 mg Q6H PRN PO .PAIN 1-3 OR TEMP; Start 07/05/18 at 05:00 Acetaminophen/ Hydrocodone Bitart ([place] (5/325)) 1 tab Q6H PRN PO .PAIN 4-6 Last administered on 07/11/18 08:41; Admin Dose 1 TAB; Start 07/05/18 at 05:00 Docusate Sodium (Colace) 100 mg Q12H PRN PO .CONSTIPATION; Start 07/05/18 at 05:00 Magnesium Hydroxide (Milk Of Mag) 30 ml DAILY PRN PO .CONSTIPATION; Start 06/17 02/02 at 05:00 Pantoprazole (Protonix Tab) 40 mg DAILY@06 PO Last administered on 07/11/18 05:55; Admin Dose 40 MG; Start 07/05/18 at 06:00 Apixaban (Eliquis) 5 mg BID PO Last administered on 2/25/19at 08:36; Admin Dose 5 MG; Start 07/05/18 at 09:00; Status Hold Morphine Sulfate (morphine) 6 mg Q4H PRN PO SEVERE PAIN LEVEL 7-10; Start 07/05/18 at 20:30 Spironolactone (Aldactone) 12.5 mg BID DIURETICS PO Last administered on 07/10/18at 17:49; Admin Dose 12.5 MG; Start 07/06/18 at 18:00 Metoprolol Tartrate (Lopressor) 25 mg Q8 PO Last administered on 07/10/18at 21:05; Admin Dose 25 MG; Start 07/07/18 at 14:00 Furosemide (Lasix) 20 mg BID DIURETICS PO Last administered on 07/11/18at 05:55 ; Admin Dose 20 MG; Start 07/08/18 at 18:00 Potassium Chloride (Klor-Con 20) 40 meq DAILY PO Last administered on 07/11/18at 08:37; Admin Dose 40 MEQ; Start 07/10/18 at 09:00 Ceftriaxone Sodium 50 ml @ 100 mls/hr Q24H IVPB Last administered on 07/10/18at 23:56; Admin Dose 100 MLS/HR; Start 07/10/18 at 23:00 Ranulfo Gold DO Jul 11, 2018 13:18
--- NOTE | 2018-07-11 15:18 | CONS ---
Assessment/Plan Assessment/Plan Hospital Course (Demo Recall) Summary Assessment and Plan: Assessment: Hematochezia Acute on chronic Diastolic HF-resolving -EF 65% Atrial fib- Eliquis on hold Acute chest pain- resolved -Last stress test was 12/2017 and negative COPD Pulmonary HTN Peripheral neuropathy Fatty liver History of excessive ETOH use. Plan: Monitor labs Cardiac cleared for possible colonoscopy in the near future if patient is agreeable Patient seen in collaboration with Dr. Bauman CC: RUDY BAUMAN ; Consultation Date/Type/Reason Admit Date/Time Jul 05, 2018 at 03:44 Date of Consultation: Jul 11, 2018 Type of Consult GI Reason for Consultation Hematochezia Date/Time of Note DATE: 07/11/18 TIME: 14:54 Hx of Present Illness This is a 63 year old female with a past medical history of atrial fibrillation, chronic alcoholism, hypertension, pulmonary hypertension, COPD, diastolic heart failure who presented to [facility] complaining of bilateral lower extremity and lower lower extremity pain. She was transferred to [facility] for further evaluation. During hospitalization patient underwent an echocardiogram showing ejection fraction of 65% she was continued Eliquis for atrial fibrillation. During hospitalization patient subsequently developed rect al bleeding her hemoglobin has been stable Eliquis has been placed on hold secondary to rectal bleeding GI has been consulted for possible workup including colonoscopy. Pt states she had never had a colonoscopy, she notes BRBPR while wiping. She denies melena, abd pain or nausea/vomiting. I reviewed the colonoscopy including risk/benefits, she states she will take the next 24 hours to think about possibly proceeding with procedure. Patient notes poor follow up with doctors post-discharge. Review of Systems: A 12 system, review was conducted and is negative except as noted in the HPI or here. Past Medical History Medical History: congestive heart failure, other (atrial fibrillation) Home Meds Active Scripts Salmeterol Xinaf/Fluticasone* (Advair*) 250-50 Diskus Inhaler, 1 INH INHALATION BID, #1 INHALER Prov:THU THORPE [employer] 12/26/17 Albuterol Sulfate* (Proair HFA*) 8.5 Gm Hfa.aer.ad, 2 PUFF INH Q4 for Dyspnea, #1 INHALER Prov:THU THORPE [employer] 12/26/17 Carvedilol* (Carvedilol*) 6.25 Mg Tablet, 6.25 MG PO BID, #60 TAB Prov:THU THORPE [employer] 12/26/17 Amlodipine Besylate* (Amlodipine Besylate*) 5 Mg Tablet, 5 MG PO DAILY, #30 TAB Prov:THU THORPE [employer] 12/26/17 Medications Current Medications Fluticasone/ Vilanterol (Breo Ellipta 100-25 Mcg Inh) 1 inh DAILY INH Last administered on 07/11/18 08:36; Admin Dose 1 INH; Start 07/05/18 at 09:00 Albuterol (Proventil 0.083% (Neb)) 2.5 mg Q2H RESP THERAPY PRN HHN SHORTNESS OF BREATH Last administered on 07/05/18 07:43; Admin Dose 2.5 MG; Start 07/05/18 at 05:00 IV Flush (NS 3 ml) 3 ml PER PROTOCOL IV ; Start 07/05/18 at 05:00 Ondansetron HCl (Zofran Inj) 4 mg Q6H PRN IV NAUSEA/VOMITING; Start 07/05/18 at 05:00 Nitroglycerin (Nitroglycerin (Sl Tab) 0.4 Mg) 1 tab Q5M PRN SL .CHEST PAIN; Start 07/05/18 at 05:00 Acetaminophen (Tylenol Tab) 650 mg Q6H PRN PO .PAIN 1-3 OR TEMP; Start 07/05/18 at 05:00 Acetaminophen/ Hydrocodone Bitart ([place] (5/325)) 1 tab Q6H PRN PO .PAIN 4-6 Last administered on 07/11/18at 08:41; Admin Dose 1 TAB; Start 07/05/18 at 05:00 Docusate Sodium (Colace) 100 mg Q12H PRN PO .CONSTIPATION; Start 07/05/18 at 05:00 Magnesium Hydroxide (Milk Of Mag) 30 ml DAILY PRN PO .CONSTIPATION; Start 07/05/18 at 05:00 Pantoprazole (Protonix Tab) 40 mg DAILY@06 PO Last administered on 07/11/18 05:55; Admin Dose 40 MG; Start 07/05/18 at 06:00 Apixaban (Eliquis) 5 mg BID PO Last administered on 07/11/18 08:36; Admin Dose 5 MG; Start 07/05/18 at 09:00; Status Hold Morphine Sulfate (morphine) 6 mg Q4H PRN PO SEVERE PAIN LEVEL 7-10; Start 07/05/18 at 20:30 Spironolactone (Aldactone) 12.5 mg BID DIURETICS PO Last administered on 07/10/18at 17:49; Admin Dose 12.5 MG; Start 07/06/18 at 18:00 Furosemide (Lasix) 20 mg BID DIURETICS PO Last administered on 07/11/18at 05:55; Admin Dose 20 MG; Start 07/08/18 at 18:00 Potassium Chloride (Klor-Con 20) 40 meq DAILY PO Last administered on 07/11/18at 08:37; Admin Dose 40 MEQ; Start 07/10/18 at 09:00 Ceftriaxone Sodium 50 ml @ 100 mls/hr Q24H IVPB Last administered on 07/10/18at 23:56; Admin Dose 100 MLS/HR; Start 07/10/18 at 23:00 Metoprolol Tartrate (Lopressor) 25 mg BID PO ; Start 07/11/18 at 21:00 Allergies: Coded Allergies: No Known Allergy (Unverified , 12/24/17) Past Surgical History Past Surgical Hx: noncontributory, other Social History Alcohol Use: sober Smoking Status: Former smoker Drug Use: none Exam/Review of Systems Exam Vitals Vital Signs Date Temp Pulse Resp B/P (MAP) Pulse Ox O2 O2 Flow FiO2 Time Delivery Rate 07/11/18 101 14:04 07/11/18 98.0 17 100/57 97 12:05 (71) 07/08/18 Room Air 04:09 Intake and Output 07/10/18 07/10/18 07/11/18 1515:00 23:00 07:00 IntakeIntake Total 850 ml 350 ml OutputOutput Total 650 ml 3 ml BalanceBalance 200 ml 347 ml Exam PHYSICAL EXAMINATION: GENERAL: Well developed, well nourished, alert & oriented x 3, in no acute distress SKIN: No lesions, no tenderness. EYES: Pupils equal reactive to light, no discharge. EARS/NOSE AND THROAT: Ears normal, nose normal NECK: Supple CARDIOVASCULAR: Heart: Irregular rate and rhythm RESPIRATORY: Lungs clear to auscultation and percussion, no wheezing, no rubs GASTROINTESTINAL AND LIVER: Abdomen: Soft, non tenderness, large abdominal girth, no hernias, no masses, no organomegaly, no ascites, no guarding, no rebound tenderness, normoactive bowel sounds. Rectal: Deferred. EXTREMITIES: BLE edema. Results Result Diagram: 07/11/18 0510 07/11/18 0510 Results 24hrs Laboratory Tests Test 07/11/18 05:10 White Blood Count 12.2 H Red Blood Count 2.92 L Hemoglobin 9.2 L Hematocrit 27.8 L Mean Corpuscular Volume 95.2 Mean Corpuscular Hemoglobin 31.5 Mean Corpuscular Hemoglobin Concent 33.1 Red Cell Distribution Width 15.7 H Platelet Count 262 Mean Platelet Volume 10.9 H Immature Granulocytes % 0.500 H Neutrophils % 62.6 Lymphocytes % 23.5 Monocytes % 11.7 H Eosinophils % 1.5 Basophils % 0.2 Nucleated Red Blood Cells % 0.0 Immature Granulocytes # 0.060 H Neutrophils # 7.6 H Lymphocytes # 2.9 Monocytes # 1.4 H Eosinophils # 0.2 Basophils # 0.0 Nucleated Red Blood Cells # 0.0 Sodium Level 136 Potassium Level 4.1 Chloride Level 101 Carbon Dioxide Level 31 Anion Gap 4 L Blood Urea Nitrogen 17 Creatinine 0.67 Glucose Level 89 Calcium Level 8.0 L Phosphorus Level 3.9 Magnesium Level 1.9 Albumin 2.0 L Medications Medication Current Medications Fluticasone/ Vilanterol (Breo Ellipta 100-25 Mcg Inh) 1 inh DAILY INH Last administered on 07/11/18at 08:36; Admin Dose 1 INH; Start 07/05/18 at 09:00 Albuterol (Proventil 0.083% (Neb)) 2.5 mg Q2H RESP THERAPY PRN HHN SHORTNESS OF BREATH Last administered on 07/05/18at 07:43; Admin Dose 2.5 MG; Start 07/05/18 at 05:00 IV Flush (NS 3 ml) 3 ml PER PROTOCOL IV ; Start 07/05/18 at 05:00 Ondansetron HCl (Zofran Inj) 4 mg Q6H PRN IV NAUSEA/VOMITING; Start 07/05/18 at 05:00 Nitroglycerin (Nitroglycerin (Sl Tab) 0.4 Mg) 1 tab Q5M PRN SL .CHEST PAIN; Start 07/05/18 at 05:00 Acetaminophen (Tylenol Tab) 650 mg Q6H PRN PO .PAIN 1-3 OR TEMP; Start 07/05/18 at 05:00 Acetaminophen/ Hydrocodone Bitart ([place] (5/325)) 1 tab Q6H PRN PO .PAIN 4-6 Last administered on 07/11/18 08:41; Admin Dose 1 TAB; Start 07/05/18 at 05:00 Docusate Sodium (Colace) 100 mg Q12H PRN PO .CONSTIPATION; Start 07/05/18 at 05:00 Magnesium Hydroxide (Milk Of Mag) 30 ml DAILY PRN PO .CONSTIPATION; Start 07/05/18 at 05:00 Pantoprazole (Protonix Tab) 40 mg DAILY@06 PO Last administered on 07/11/18 05:55; Admin Dose 40 MG; Start 07/05/18 at 06:00 Apixaban (Eliquis) 5 mg BID PO Last administered on 07/11/18 08:36; Admin Dose 5 MG; Start 07/05/18 at 09:00; Status Hold Morphine Sulfate (morphine) 6 mg Q4H PRN PO SEVERE PAIN LEVEL 7-10; Start 07/05/18 at 20:30 Spironolactone (Aldactone) 12.5 mg BID DIURETICS PO Last administered on 07/10/18 17:49; Admin Dose 12.5 MG; Start 07/06/18 at 18:00 Furosemide (Lasix) 20 mg BID DIURETICS PO Last administered on 07/11/18 05:55; Admin Dose 20 MG; Start 07/08/18 at 18:00 Potassium Chloride (Klor-Con 20) 40 meq DAILY PO Last administered on 07/11/18 08:37; Admin Dose 40 MEQ; Start 07/10/18 at 09:00 Ceftriaxone Sodium 50 ml @ 100 mls/hr Q24H IVPB Last administered on 07/10/18 23:56; Admin Dose 100 MLS/HR; Start 07/10/18 at 23:00 Metoprolol Tartrate (Lopressor) 25 mg BID PO ; Start 07/11/18 at 21:00 FAVIOLA MERCER Jul 11, 2018 15:04
[2018-07-11] MEDS: CEFTRIAXONE 1 GM/50 ML (PMX) 50 ML IVPB SCH (22:31)
[2018-07-12] VITALS (11 sets, daily range): BP systolic 96–102; BP diastolic 58–65; PULSE 85–99; RESP 16–20
[2018-07-12] MEDS: PANTOPRAZOLE (EC) 40 MG TAB PO SCH (05:40)
[2018-07-12] MEDS: SPIRONOLACTONE 25 MG TAB PO SCH ×2 (05:40→18:01)
[2018-07-12] MEDS: FUROSEMIDE 20 MG TAB PO SCH (05:41)
[2018-07-12] MEDS: POTASSIUM CHLORIDE (SR) 20 MEQ TAB PO SCH (09:21)
[2018-07-12] MEDS: METOPROLOL 25 MG TAB PO SCH ×2 (09:21→20:32)
[2018-07-12] MEDS: FLUTICASONE/VILANTEROL 100-25 INH SCH (09:23)
--- NOTE | 2018-07-12 11:10 | PN ---
Date/Time of Note Date/Time of Note DATE: 07/12/18 TIME: 11:08 Objective Vitals Vital Signs Date Temp Pulse Resp B/P (MAP) Pulse Ox O2 O2 Flow FiO2 Time Delivery Rate 07/12/18 99 08:49 07/12/18 98.3 20 100/62 97 07:26 (75) 07/12/18 Room Air 05:39 07/12/18 2.0 28 01:34 Intake and Output 07/11/18 07/11/18 07/12/18 1515:00 23:00 07:00 IntakeIntake Total 1020 ml 290 ml BalanceBalance 1020 ml 290 ml Results Result Diagram: 07/12/1852007/12/18520 Medications Medications Current Medications Fluticasone/ Vilanterol (Breo Ellipta 100-25 Mcg Inh) 1 inh DAILY INH Last administered on 07/12/18at 09:23; Admin Dose 1 INH; Start 07/05/18 at 09:00 Albuterol (Proventil 0.083% (Neb)) 2.5 mg Q2H RESP THERAPY PRN HHN SHORTNESS OF BREATH Last administered on 07/05/18at 07:43; Admin Dose 2.5 MG; Start 07/05/18 at 05:00 IV Flush (NS 3 ml) 3 ml PER PROTOCOL IV ; Start 07/05/18 at 05:00 Ondansetron HCl (Zofran Inj) 4 mg Q6H PRN IV NAUSEA/VOMITING; Start 07/05/18 at 05:00 Nitroglycerin (Nitroglycerin (Sl Tab) 0.4 Mg) 1 tab Q5M PRN SL .CHEST PAIN; Start 07/05/18 at 05:00 Acetaminophen (Tylenol Tab) 650 mg Q6H PRN PO .PAIN 1-3 OR TEMP; Start 07/05/18 at 05:00 Acetaminophen/ Hydrocodone Bitart ([place] (5/325)) 1 tab Q6H PRN PO .PAIN 4-6 Last administered on 07/11/18at 08:41; Admin Dose 1 TAB; Start 07/05/18 at 05:00 Docusate Sodium (Colace) 100 mg Q12H PRN PO .CONSTIPATION; Start 07/05/18 at 05:00 Magnesium Hydroxide (Milk Of Mag) 30 ml DAILY PRN PO .CONSTIPATION; Start at 05:00 Pantoprazole (Protonix Tab) 40 mg DAILY@06 PO Last administered on 07/12/18 05:40; Admin Dose 40 MG; Start 07/05/18 at 06:00 Apixaban (Eliquis) 5 mg BID PO Last administered on 07/11/18 08:36; Admin Dose 5 MG; Start 07/05/18 at 09:00; Status Hold Morphine Sulfate (morphine) 6 mg Q4H PRN PO SEVERE PAIN LEVEL 7-10; Start 07/05/18 at 20:30 Spironolactone (Aldactone) 12.5 mg BID DIURETICS PO Last administered on 07/12/18 05:40; Admin Dose 12.5 MG; Start 07/06/18 at 18:00 Furosemide (Lasix) 20 mg BID DIURETICS PO Last administered on 07/11/18 17:48; Admin Dose 20 MG; Start 07/08/18 at 18:00 Ceftriaxone Sodium 50 ml @ 100 mls/hr Q24H IVPB Last administered on 07/11/18 22:31; Admin Dose 100 MLS/HR; Start 07/10/18 at 23:00 Metoprolol Tartrate (Lopressor) 25 mg BID PO Last administered on 07/12/18 09:21; Admin Dose 25 MG; Start 07/11/18 at 21:00 Potassium Chloride (Potassium Chloride Pwd/Soln) 40 meq DAILY PO ; Start 07/13/18 at 09:00 VTE Prophylaxis Risk score (from Nsg)>0 risk: 5 SCD applied (from Ns): No SCD contraindication: other Lines/Catheters IV Catheter Type: Molina in Place: No Assessment/Plan Hospital Course Subjective Rectal bleeding has improved, very light now Objective Physical exam General: Patient is laying in bed and answers questions appropriately Mentation: Patient is alert and oriented 4, Head: Normocephalic atraumatic Eyes: EOMI, pupils reactive to light Neck: Supple, nontender, midline Respiratory: Clear to auscultation bilaterally Cardiovascular: regular rate, no obvious murmurs Gastrointestinal: non-tender to palpation, bowel sounds heard. Neurological: Moves all extremities spontaneously Skin: No new skin lesions Assessment/Plan Acute on chronic Diastolic HF-resolving - Swelling resolved - Cardiology on board and appreciate recommendations. - Lasix and Aldactone on board - ECHO results noted - Initial BNP elevated Questionable cirrhosis -Patient has a long drinking history, currently nondrinker -Ultrasound showing cirrhotic changes -Continue Lasix and spironolactone -Check ultrasound of the abdomen for ascites, if large enough to drain. Atrial fib - Better rate controlled but now BP running on lower side. Will touch base with Cardiology on recommendations for dose adjustments to BB - Cardiology on board and appreciate recommendations - holding eliquis for now due to rectal bleed rectal bleed -mild, hgb stable -GI consulted for possible colonoscopy? However patient unlikely to proceed with colonoscopy even after risks of colon cancer have been introduced. -hold eliquis Acute chest pain- resolved - last stress test was 12/2017 and negative COPD - continue neb treatments Pulm HTN - O2 as needed Peripheral neuropathy - improved with decreased swelling Disposition -watch BP -US abdomen pending ISATU ARDON Jul 12, 2018 11:10
--- NOTE | 2018-07-12 15:52 | PN ---
Date/Time of Note Date/Time of Note DATE: 07/12/18 TIME: 15:36 Assessment/Plan VTE Prophylaxis Risk score (from Ns)>0 risk: 3 SCD applied (from Ns): No SCD contraindicated: other (scds) Pharmacological prophylaxis: other (scds) Lines/Catheters IV [facility] (from [facility] Urinary Cath still in place: No Assessment/Plan Hospital Course Summary Assessment and Plan: Assessment: Hematochezia Acute on chronic Diastolic HF-resolving -EF 65% Atrial fib- Eliquis on hold Acute chest pain- resolved -Last stress test was 12/2017 and negative COPD Pulmonary HTN Peripheral neuropathy History of excessive ETOH use. Imaging suggestive of liver cirrhosis with a small to moderate amount of ascites Plan: Monitor labs US- ordered to assess if ascites large enough to drain Currently on spirolactone/Lasix Pt refused colonoscopy Pt will need to f/u with GI after discharge for further working regarding possible liver cirrhosis Patient seen in collaboration with Dr. Kelley/Diana Subjective: Course reviewed with nursing staff Patient interviewed and examined All labs, imaging and other results reviewed The patient resting in bed appears comfortable Pt states she thought about the colonoscopy over night and currently refuses PHYSICAL EXAMINATION: GENERAL: Alert & oriented x 3, in no acute distress SKIN: No lesions, no tenderness. EYES: Pupils equal reactive to light, no discharge. EARS/NOSE AND THROAT: Ears normal, nose normal NECK: Supple CARDIOVASCULAR: Heart: Irregular rate and rhythm RESPIRATORY: Lungs clear to auscultation GASTROINTESTINAL AND LIVER: Abdomen: Soft, non tenderness, large abdominal girth, no hernias, no masses, no organomegaly, no guarding, no rebound tenderness, normoactive bowel sounds. Rectal: Deferred. EXTREMITIES: BLE edema. Result Diagram: 07/12/1852007/12/1821 Results 24hrs Laboratory Tests Test 07/12/18 05:21 White Blood Count 10.8 Red Blood Count 2.90 L Hemoglobin 9.0 L Hematocrit 27.0 L Mean Corpuscular Volume 93.1 Mean Corpuscular Hemoglobin 31.0 Mean Corpuscular Hemoglobin Concent 33.3 Red Cell Distribution Width 16.1 H Platelet Count 255 Mean Platelet Volume 10.6 H Immature Granulocytes % 0.700 H Neutrophils % 59.2 Lymphocytes % 26.5 Monocytes % 11.8 H Eosinophils % 1.3 Basophils % 0.5 Nucleated Red Blood Cells % 0.0 Immature Granulocytes # 0.080 H Neutrophils # 6.4 Lymphocytes # 2.9 Monocytes # 1.3 H Eosinophils # 0.1 Basophils # 0.1 Nucleated Red Blood Cells # 0.0 Sodium Level 136 Potassium Level 3.8 Chloride Level 100 Carbon Dioxide Level 29 Anion Gap 7 Blood Urea Nitrogen 17 Creatinine 0.66 Glucose Level 86 Calcium Level 8.0 L Phosphorus Level 4.3 Magnesium Level 1.7 Total Bilirubin 0.6 Direct Bilirubin 0.00 Indirect Bilirubin 0.6 Aspartate Amino Transf (AST/SGOT) 43 Alanine Aminotransferase (ALT/SGPT) 28 Alkaline Phosphatase 67 Total Protein 5.2 L Albumin 1.9 L Exam/Review of Systems Exam Vitals Vital Signs Date Temp Pulse Resp B/P (MAP) Pulse Ox O2 O2 Flow FiO2 Time Delivery Rate 07/12/18 98.4 88 20 98/58 (71) 94 Room Air 15:25 07/12/18 2.0 13:34 07/12/18 28 01:34 Intake and Output 07/11/18 07/11/18 07/12/18 1515:00 23:00 07:00 IntakeIntake Total 1020 ml 290 ml BalanceBalance 1020 ml 290 ml Results Results 24hrs Laboratory Tests Test 07/12/18 05:21 White Blood Count 10.8 Red Blood Count 2.90 L Hemoglobin 9.0 L Hematocrit 27.0 L Mean Corpuscular Volume 93.1 Mean Corpuscular Hemoglobin 31.0 Mean Corpuscular Hemoglobin Concent 33.3 Red Cell Distribution Width 16.1 H Platelet Count 255 Mean Platelet Volume 10.6 H Immature Granulocytes % 0.700 H Neutrophils % 59.2 Lymphocytes % 26.5 Monocytes % 11.8 H Eosinophils % 1.3 Basophils % 0.5 Nucleated Red Blood Cells % 0.0 Immature Granulocytes # 0.080 H Neutrophils # 6.4 Lymphocytes # 2.9 Monocytes # 1.3 H Eosinophils # 0.1 Basophils # 0.1 Nucleated Red Blood Cells # 0.0 Sodium Level 136 Potassium Level 3.8 Chloride Level 100 Carbon Dioxide Level 29 Anion Gap 7 Blood Urea Nitrogen 17 Creatinine 0.66 Glucose Level 86 Calcium Level 8.0 L Phosphorus Level 4.3 Magnesium Level 1.7 Total Bilirubin 0.6 Direct Bilirubin 0.00 Indirect Bilirubin 0.6 Aspartate Amino Transf (AST/SGOT) 43 Alanine Aminotransferase (ALT/SGPT) 28 Alkaline Phosphatase 67 Total Protein 5.2 L Albumin 1.9 L Medications Medication Current Medications Fluticasone/ Vilanterol (Breo Ellipta 100-25 Mcg Inh) 1 inh DAILY INH Last administered on 07/12/18at 09:23; Admin Dose 1 INH; Start 07/05/18 at 09:00 Albuterol (Proventil 0.083% (Neb)) 2.5 mg Q2H RESP THERAPY PRN HHN SHORTNESS OF BREATH Last administered on 07/05/18at 07:43; Admin Dose 2.5 MG; Start 07/05/18 at 05:00 IV Flush (NS 3 ml) 3 ml PER PROTOCOL IV ; Start 07/05/18 at 05:00 Ondansetron HCl (Zofran Inj) 4 mg Q6H PRN IV NAUSEA/VOMITING; Start 07/05/18 at 05:00 Nitroglycerin (Nitroglycerin (Sl Tab) 0.4 Mg) 1 tab Q5M PRN SL .CHEST PAIN; Start 07/05/18 at 05:00 Acetaminophen (Tylenol Tab) 650 mg Q6H PRN PO .PAIN 1-3 OR TEMP; Start 07/05/18 at 05:00 Acetaminophen/ Hydrocodone Bitart ([place] (5/325)) 1 tab Q6H PRN PO .PAIN 4-6 Last administered on 07/11/18at 08:41; Admin Dose 1 TAB; Start 07/05/18 at 05:00 Docusate Sodium (Colace) 100 mg Q12H PRN PO .CONSTIPATION; Start 07/05/18 at 05:00 Magnesium Hydroxide (Milk Of Mag) 30 ml DAILY PRN PO .CONSTIPATION; Start 07/05/18 at 05:00 Pantoprazole (Protonix Tab) 40 mg DAILY@06 PO Last administered on 07/12/18at 05:40; Admin Dose 40 MG; Start 07/05/18 at 06:00 Apixaban (Eliquis) 5 mg BID PO Last administered on 07/11/18at 08:36; Admin Dose 5 MG; Start 07/05/18 at 09:00; Status Hold Morphine Sulfate (morphine) 6 mg Q4H PRN PO SEVERE PAIN LEVEL 7-10; Start 07/05/18 at 20:30 Spironolactone (Aldactone) 12.5 mg BID DIURETICS PO Last administered on 07/12/18at 05:40; Admin Dose 12.5 MG; Start 07/06/18 at 18:00 Furosemide (Lasix) 20 mg BID DIURETICS PO Last administered on 07/11/18at 17:48; Admin Dose 20 MG; Start 07/08/18 at 18:00 Ceftriaxone Sodium 50 ml @ 100 mls/hr Q24H IVPB Last administered on 07/11/18at 22:31; Admin Dose 100 MLS/HR; Start 07/10/18 at 23:00 Metoprolol Tartrate (Lopressor) 25 mg BID PO Last administered on 07/12/18at 09:21; Admin Dose 25 MG; Start 07/11/18 at 21:00 Potassium Chloride (Potassium Chloride Pwd/Soln) 40 meq DAILY PO ; Start 07/13/18 at 09:00 FAVIOLA MERCER Jul 12, 2018 15:46
--- NOTE | 2018-07-12 16:20 | CONS ---
Assessment/Plan Cardiology NYHA: II Heart Failure Type: Acute Heart Failure Type: Diastolic Assessment/Plan Hospital Course (Demo Recall) Preoperative cardiac risk stratification History of acute decompensated diastolic congestive heart failure-currently compensated Labile blood pressure Paroxysmal atrial fibrillation History of COPD Normal nuclear cardiac perfusion study 12/25/2017 Preserved left ventricular systolic ejection fraction echocardiogram 07/05/2018 ASD status post surgical repair -Patient currently compensated from a congestive heart failure standpoint -Discussion with patient and primary hospitalist, patient with rectal bleeding, recommendations were for further GI evaluation. Patient currently refusing colonoscopy. I did discuss this with the patient, given her cardiac risk factors, she is at an intermediate risk for any untoward cardiac events for c olonoscopy or endoscopy. The benefits likely outweigh the risks. Given patient with paroxysmal atrial fibrillation, patient should be on anticoagulation and I did discuss this with the patient regarding further GI evaluation. Consultation Date/Type/Reason Admit Date/Time Jul 05, 2018 at 03:44 Initial Consult Date Type of Consult Cardiology Date/Time of Note DATE: 07/12/18 TIME: 16:17 24 HR Interval Summary Free Text/Dictation Denies chest pain, shortness of breath or palpitations. Overall feeling better Exam/Review of Systems Vital Signs Vitals Vital Signs Date Temp Pulse Resp B/P (MAP) Pulse Ox O2 O2 Flow FiO2 Time Delivery Rate 07/12/18 98.4 88 20 98/58 (71) 94 Room Air 15:25 07/12/18 2.0 13:34 07/12/18 28 01:34 Intake and Output 07/11/18 07/11/18 07/12/18 1515:00 23:00 07:00 IntakeIntake Total 1020 ml 290 ml BalanceBalance 1020 ml 290 ml Exam Constitutional: alert, oriented (No apparent distress, no dyspnea with speaking) Head: normocephalic Respiratory: other (Coarse breath sounds bilaterally, no wheezing) Cardiovascular: regular rate and rhythm (S1-S2 heard) Gastrointestinal: soft, non-tender, bowel sounds Extremities: edema Labs Result Diagram: 07/12/1821 07/12/18 0521 Results 24hrs Laboratory Tests Test 07/12/18 05:21 White Blood Count 10.8 Red Blood Count 2.90 L Hemoglobin 9.0 L Hematocrit 27.0 L Mean Corpuscular Volume 93.1 Mean Corpuscular Hemoglobin 31.0 Mean Corpuscular Hemoglobin Concent 33.3 Red Cell Distribution Width 16.1 H Platelet Count 255 Mean Platelet Volume 10.6 H Immature Granulocytes % 0.700 H Neutrophils % 59.2 Lymphocytes % 26.5 Monocytes % 11.8 H Eosinophils % 1.3 Basophils % 0.5 Nucleated Red Blood Cells % 0.0 Immature Granulocytes # 0.080 H Neutrophils # 6.4 Lymphocytes # 2.9 Monocytes # 1.3 H Eosinophils # 0.1 Basophils # 0.1 Nucleated Red Blood Cells # 0.0 Sodium Level 136 Potassium Level 3.8 Chloride Level 100 Carbon Dioxide Level 29 Anion Gap 7 Blood Urea Nitrogen 17 Creatinine 0.66 Glucose Level 86 Calcium Level 8.0 L Phosphorus Level 4.3 Magnesium Level 1.7 Total Bilirubin 0.6 Direct Bilirubin 0.00 Indirect Bilirubin 0.6 Aspartate Amino Transf (AST/SGOT) 43 Alanine Aminotransferase (ALT/SGPT) 28 Alkaline Phosphatase 67 Total Protein 5.2 L Albumin 1.9 L Medications Medications Current Medications Fluticasone/ Vilanterol (Breo Ellipta 100-25 Mcg Inh) 1 inh DAILY INH Last administered on 07/12/18at 09:23; Admin Dose 1 INH; Start 07/05/18 at 09:00 Albuterol (Proventil 0.083% (Neb)) 2.5 mg Q2H RESP THERAPY PRN HHN SHORTNESS OF BREATH Last administered on 07/05/18at 07:43; Admin Dose 2.5 MG; Start 07/05/18 at 05:00 IV Flush (NS 3 ml) 3 ml PER PROTOCOL IV ; Start 07/05/18 at 05:00 Ondansetron HCl (Zofran Inj) 4 mg Q6H PRN IV NAUSEA/VOMITING; Start 07/05/18 at 05:00 Nitroglycerin (Nitroglycerin (Sl Tab) 0.4 Mg) 1 tab Q5M PRN SL .CHEST PAIN; Start 07/05/18 at 05:00 Acetaminophen (Tylenol Tab) 650 mg Q6H PRN PO .PAIN 1-3 OR TEMP; Start 07/05/18 at 05:00 Acetaminophen/ Hydrocodone Bitart ([place] (5/325)) 1 tab Q6H PRN PO .PAIN 4-6 Last administered on 07/11/18at 08:41; Admin Dose 1 TAB; Start 07/05/18 at 05:00 Docusate Sodium (Colace) 100 mg Q12H PRN PO .CONSTIPATION; Start 07/05/18 at 05:00 Magnesium Hydroxide (Milk Of Mag) 30 ml DAILY PRN PO .CONSTIPATION; Start 07/05/18 at 05:00 Pantoprazole (Protonix Tab) 40 mg DAILY@06 PO Last administered on 07/12/18at 05:40; Admin Dose 40 MG; Start 07/05/18 at 06:00 Apixaban (Eliquis) 5 mg BID PO Last administered on 07/11/18 08:36; Admin Dose 5 MG; Start 07/05/18 at 09:00; Status Hold Morphine Sulfate (morphine) 6 mg Q4H PRN PO SEVERE PAIN LEVEL 7-10; Start 07/05/18 at 20:30 Spironolactone (Aldactone) 12.5 mg BID DIURETICS PO Last administered on 07/12/18 05:40; Admin Dose 12.5 MG; Start 07/06/18 at 18:00 Furosemide (Lasix) 20 mg BID DIURETICS PO Last administered on 07/11/18at 17:48; Admin Dose 20 MG; Start 07/08/18 at 18:00 Ceftriaxone Sodium 50 ml @ 100 mls/hr Q24H IVPB Last administered on 07/11/18at 22:31; Admin Dose 100 MLS/HR; Start 07/10/18 at 23:00 Metoprolol Tartrate (Lopressor) 25 mg BID PO Last administered on 07/12/18at 09:21; Admin Dose 25 MG; Start 07/11/18 at 21:00 Potassium Chloride (Potassium Chloride Pwd/Soln) 40 meq DAILY PO ; Start 07/13/18 at 09:00 Ranulfo Gold DO Jul 12, 2018 16:20
[2018-07-12] MEDS: CEFTRIAXONE 1 GM/50 ML (PMX) 50 ML IVPB SCH (23:42)
[2018-07-13] VITALS (11 sets, daily range): BP systolic 88–110; BP diastolic 53–63; PULSE 59–118; RESP 18–19
[2018-07-13] MEDS: PANTOPRAZOLE (EC) 40 MG TAB PO SCH (06:06)
[2018-07-13] MEDS: SPIRONOLACTONE 25 MG TAB PO SCH (06:06)
[2018-07-13] MEDS: FLUTICASONE/VILANTEROL 100-25 INH SCH (08:47)
[2018-07-13] MEDS: POTASSIUM CHLORIDE 20 MEQ POWDER FOR ORAL SOLN PO SCH (08:48)
[2018-07-13] MEDS: FUROSEMIDE 20 MG TAB PO SCH (08:50)
[2018-07-13] MEDS: METOPROLOL 25 MG TAB PO SCH ×2 (08:51→20:35)
--- NOTE | 2018-07-13 11:22 | PN ---
Date/Time of Note Date/Time of Note DATE: 07/13/18 TIME: 11:19 Objective Vitals Vital Signs Date Temp Pulse Resp B/P (MAP) Pulse Ox O2 O2 Flow FiO2 Time Delivery Rate 07/13/18 98.2 91 19 107/63 97 11:16 (78) 07/13/18 Room Air 04:00 07/13/18 2.0 03:45 07/12/18 28 01:34 Intake and Output 07/12/18 07/12/18 07/13/18 1414:59 22:59 06:59 IntakeIntake Total 600 ml BalanceBalance 600 ml Results Result Diagram: 07/13/1854507/13/18545 Medications Medications Current Medications Fluticasone/ Vilanterol (Breo Ellipta 100-25 Mcg Inh) 1 inh DAILY INH Last administered on 07/13/18at 08:47; Admin Dose 1 INH; Start 07/05/18 at 09:00 Albuterol (Proventil 0.083% (Neb)) 2.5 mg Q2H RESP THERAPY PRN HHN SHORTNESS OF BREATH Last administered on 07/05/18at 07:43; Admin Dose 2.5 MG; Start 07/05/18 at 05:00 IV Flush (NS 3 ml) 3 ml PER PROTOCOL IV ; Start 07/05/18 at 05:00 Ondansetron HCl (Zofran Inj) 4 mg Q6H PRN IV NAUSEA/VOMITING; Start 07/05/18 at 05:00 Nitroglycerin (Nitroglycerin (Sl Tab) 0.4 Mg) 1 tab Q5M PRN SL .CHEST PAIN; Start 07/05/18 at 05:00 Acetaminophen (Tylenol Tab) 650 mg Q6H PRN PO .PAIN 1-3 OR TEMP; Start 07/05/18 at 05:00 Acetaminophen/ Hydrocodone Bitart ([place] (5/325)) 1 tab Q6H PRN PO .PAIN 4-6 Last administered on 07/11/18at 08:41; Admin Dose 1 TAB; Start 07/05/18 at 05:00 Docusate Sodium (Colace) 100 mg Q12H PRN PO .CONSTIPATION; Start 07/05/18 at 05:00 Magnesium Hydroxide (Milk Of Mag) 30 ml DAILY PRN PO .CONSTIPATION; Start 07/05/18 at 05:00 Pantoprazole (Protonix Tab) 40 mg DAILY@06 PO Last administered on 07/13/18 06:06; Admin Dose 40 MG; Start 07/05/18 at 06:00 Apixaban (Eliquis) 5 mg BID PO Last administered on 07/11/18 08:36; Admin Dose 5 MG; Start 07/05/18 at 09:00; Status Hold Morphine Sulfate (morphine) 6 mg Q4H PRN PO SEVERE PAIN LEVEL 7-10; Start 07/05/18 at 20:30 Ceftriaxone Sodium 50 ml @ 100 mls/hr Q24H IVPB Last administered on 07/12/18 23:42; Admin Dose 100 MLS/HR; Start 07/10/18 at 23:00 Metoprolol Tartrate (Lopressor) 25 mg BID PO Last administered on 07/13/18 08:51; Admin Dose 25 MG; Start 07/11/18 at 21:00 Potassium Chloride (Potassium Chloride Pwd/Soln) 40 meq DAILY PO Last administered on 07/13/18 08:48; Admin Dose 40 MEQ; Start 07/13/18 at 09:00 Furosemide (Lasix) 20 mg DAILY PO Last administered on 07/13/18 08:50; Admin Dose 20 MG; Start 07/13/18 at 09:00 Spironolactone (Aldactone) 12.5 mg DAILY PO ; Start 07/14/18 at 09:00 VTE Prophylaxis Risk score (from Ns)>0 risk: 3 SCD applied (from Ns): No SCD contraindication: other Lines/Catheters IV Catheter Type: Molina in Place: No Assessment/Plan Hospital Course Subjective no more rectal bleed Objective Physical exam General: Patient is laying in bed and answers questions appropriately Mentation: Patient is alert and oriented 4, Head: Normocephalic atraumatic Eyes: EOMI, pupils reactive to light Neck: Supple, nontender, midline Respiratory: Clear to auscultation bilaterally Cardiovascular: regular rate, no obvious murmurs Gastrointestinal: non-tender to palpation, bowel sounds heard. Neurological: Moves all extremities spontaneously Skin: No new skin lesions Assessment/Plan Acute on chronic Diastolic HF-resolving - Swelling LE resolved - Cardiology on board and appreciate recommendations. - Lasix and Aldactone on board - ECHO results noted - Initial BNP elevated Questionable cirrhosis -Patient has a long drinking history, currently nondrinker -Ultrasound showing cirrhotic changes -Continue Lasix and spironolactone -Ultrasound shows ascites that is large enough to drain however patient refuses ultrasound paracentesis Atrial fib - Better rate controlled but now BP running on lower side. Will touch base with Cardiology on recommendations for dose adjustments to BB - Cardiology on board and appreciate recommendations - holding eliquis for now due to rectal bleed rectal bleed -mild, hgb stable -GI offered colonoscopy, patient refused, patient understands that this rectal bleed may also be a precursor to colon cancer however patient accepts the risk and still refuses colonoscopy. -hold eliquis Acute chest pain- resolved - last stress test was 12/2017 and negative COPD - continue neb treatments Pulm HTN - O2 as needed Peripheral neuropathy - improved with decreased swelling Disposition -watch BP -restart eliquis tonight and monitor for bleed again ISATU ARDON Jul 13, 2018 11:22
--- NOTE | 2018-07-13 12:13 | CONS ---
Assessment/Plan Cardiology NYHA: II Heart Failure Type: Acute Heart Failure Type: Diastolic Assessment/Plan Hospital Course (Demo Recall) Preoperative cardiac risk stratification History of acute decompensated diastolic congestive heart failure-currently compensated Labile blood pressure Paroxysmal atrial fibrillation History of COPD Normal nuclear cardiac perfusion study 12/25/2017 Preserved left ventricular systolic ejection fraction echocardiogram 07/05/2018 ASD status post surgical repair -Patient currently compensated from a congestive heart failure standpoint -Continue diuretic as renal function and blood pressure permits, continue beta- blockers heart rate and blood pressure permits. -Please refer to my progress note discussing preoperative cardiac risk stratification Consultation Date/Type/Reason Admit Date/Time Jul 05, 2018 at 03:44 Initial Consult Date Type of Consult Cardiology Date/Time of Note DATE: 07/13/18 TIME: 12:12 24 HR Interval Summary Free Text/Dictation Denies chest pain, shortness of breath, palpitations Exam/Review of Systems Vital Signs Vitals Vital Signs Date Temp Pulse Resp B/P (MAP) Pulse Ox O2 O2 Flow FiO2 Time Delivery Rate 07/13/18 98.2 91 19 107/63 97 11:16 (78) 07/13/18 Room Air 04:00 07/13/18 2.0 03:45 07/12/18 28 01:34 Intake and Output 07/12/18 07/12/18 07/13/18 1515:00 23:00 07:00 IntakeIntake Total 600 ml BalanceBalance 600 ml Exam Constitutional: alert, oriented (No apparent distress) Respiratory: other (Coarse breath sounds bilaterally, no wheezing) Cardiovascular: regular rate and rhythm (S1-S2 heard) Gastrointestinal: soft, non-tender, bowel sounds Extremities: edema Labs Result Diagram: 07/13/18 1137 07/13/18 0546 Results 24hrs Laboratory Tests Test 07/13/18 05:46 07/13/18 11:37 White Blood Count 9.0 Red Blood Count 2.83 L Hemoglobin 8.6 L Hematocrit 26.1 L Mean Corpuscular Volume 92.2 Mean Corpuscular Hemoglobin 30.4 Mean Corpuscular Hemoglobin Concent 33.0 Red Cell Distribution Width 16.6 H Platelet Count 257 272 Mean Platelet Volume 10.6 H Immature Granulocytes % 0.400 Neutrophils % 56.7 Lymphocytes % 28.3 Monocytes % 12.9 H Eosinophils % 1.4 Basophils % 0.3 Nucleated Red Blood Cells % 0.0 Immature Granulocytes # 0.040 H Neutrophils # 5.1 Lymphocytes # 2.5 Monocytes # 1.2 H Eosinophils # 0.1 Basophils # 0.0 Nucleated Red Blood Cells # 0.0 Sodium Level 135 Potassium Level 4.1 Chloride Level 101 Carbon Dioxide Level 28 Anion Gap 6 Blood Urea Nitrogen 16 Creatinine 0.58 Est Glomerular Filtrat Rate mL/min > 60 Glucose Level 90 Calcium Level 7.9 L Phosphorus Level 3.9 Magnesium Level 1.8 Prothrombin Time Pending Prothrombin Time Ratio Pending INR International Normalized Ratio Pending Activated Partial Thromboplast Time Pending Thrombin Time Pending Medications Medications Current Medications Fluticasone/ Vilanterol (Breo Ellipta 100-25 Mcg Inh) 1 inh DAILY INH Last adm inistered on 07/13/18at 08:47; Admin Dose 1 INH; Start 07/05/18 at 09:00 Albuterol (Proventil 0.083% (Neb)) 2.5 mg Q2H RESP THERAPY PRN HHN SHORTNESS OF BREATH Last administered on 07/05/18at 07:43; Admin Dose 2.5 MG; Start 07/05/18 at 05:00 IV Flush (NS 3 ml) 3 ml PER PROTOCOL IV ; Start 07/05/18 at 05:00 Ondansetron HCl (Zofran Inj) 4 mg Q6H PRN IV NAUSEA/VOMITING; Start 07/05/18 at 05:00 Nitroglycerin (Nitroglycerin (Sl Tab) 0.4 Mg) 1 tab Q5M PRN SL .CHEST PAIN; Start 07/05/18 at 05:00 Acetaminophen (Tylenol Tab) 650 mg Q6H PRN PO .PAIN 1-3 OR TEMP; Start 07/05/18 at 05:00 Acetaminophen/ Hydrocodone Bitart ([place] (5/325)) 1 tab Q6H PRN PO .PAIN 4-6 Last administered on 07/11/18at 08:41; Admin Dose 1 TAB; Start 07/05/18 at 05:00 Docusate Sodium (Colace) 100 mg Q12H PRN PO .CONSTIPATION; Start 07/05/18 at 05:00 Magnesium Hydroxide (Milk Of Mag) 30 ml DAILY PRN PO .CONSTIPATION; Start 07/05/18 at 05:00 Pantoprazole (Protonix Tab) 40 mg DAILY@06 PO Last administered on 07/13/18 06 :06; Admin Dose 40 MG; Start 07/05/18 at 06:00 Apixaban (Eliquis) 5 mg BID PO Last administered on 07/11/18 08:36; Admin Dose 5 MG; Start 07/05/18 at 09:00; Status Hold Morphine Sulfate (morphine) 6 mg Q4H PRN PO SEVERE PAIN LEVEL 7-10; Start 07/05/18 at 20:30 Metoprolol Tartrate (Lopressor) 25 mg BID PO Last administered on 07/13/18 08:51; Admin Dose 25 MG; Start 07/11/18 at 21:00 Potassium Chloride (Potassium Chloride Pwd/Soln) 40 meq DAILY PO Last administered on 07/13/18 08:48; Admin Dose 40 MEQ; Start 07/13/18 at 09:00 Furosemide (Lasix) 20 mg DAILY PO Last administered on 07/13/18 08:50; Admin Dose 20 MG; Start 07/13/18 at 09:00 Spironolactone (Aldactone) 12.5 mg DAILY PO ; Start 07/14/18 at 09:00 Ranulfo Gold DO Jul 13, 2018 12:13
--- NOTE | 2018-07-13 16:09 | PN ---
Date/Time of Note Date/Time of Note DATE: 07/13/18 TIME: 16:05 Assessment/Plan VTE Prophylaxis Risk score (from Ns)>0 risk: 3 SCD applied (from Ns): No SCD contraindicated: other (scds) Pharmacological prophylaxis: other (scds) Lines/Catheters [facility] Urinary Cath still in place: No Assessment/Plan Hospital Course Summary Assessment and Plan: Assessment: Hematochezia Acute on chronic Diastolic HF-resolving -EF 65% Atrial fib- Eliquis on hold Acute chest pain- resolved -Last stress test was 12/2017 and negative COPD Pulmonary HTN Peripheral neuropathy History of excessive ETOH use. Imaging suggestive of liver cirrhosis with a small to moderate amount of ascites Plan: Monitor labs US- ordered to assess if ascites- Moderate ascites- patient refused paracentesis Currently on spirolactone/Lasix Pt refused colonoscopy Pt will need to f/u with GI after discharge for further working regarding possible liver cirrhosis No further recommendations at this time, GI will sign off but will be available upon reconsult Patient seen in collaboration with Dr. Kelley/Diana Subjective: Course reviewed with nursing staff Patient interviewed and examined All labs, imaging and other results reviewed Patient feel well no over night events No c/o nausea/vomiting or abd pain PHYSICAL EXAMINATION: GENERAL: Alert & oriented x 3, in no acute distress SKIN: No lesions, no tenderness. EYES: Pupils equal reactive to light, no discharge. EARS/NOSE AND THROAT: Ears normal, nose normal NECK: Supple CARDIOVASCULAR: Heart: Irregular rate and rhythm RESPIRATORY: Lungs clear to auscultation GASTROINTESTINAL AND LIVER: Abdomen: Soft, non tenderness, large abdominal girth, no hernias, no masses, no organomegaly, no guarding, no rebound tenderness, normoactive bowel sounds. Rectal: Deferred. EXTREMITIES: BLE edema. Result Diagram: 07/13/18 1137 07/13/18 0546 Results 24hrs Laboratory Tests Test 07/13/18 05:46 07/13/18 11:37 White Blood Count 9.0 Red Blood Count 2.83 L Hemoglobin 8.6 L Hematocrit 26.1 L Mean Corpuscular Volume 92.2 Mean Corpuscular Hemoglobin 30.4 Mean Corpuscular Hemoglobin Concent 33.0 Red Cell Distribution Width 16.6 H Platelet Count 257 272 Mean Platelet Volume 10.6 H Immature Granulocytes % 0.400 Neutrophils % 56.7 Lymphocytes % 28.3 Monocytes % 12.9 H Eosinophils % 1.4 Basophils % 0.3 Nucleated Red Blood Cells % 0.0 Immature Granulocytes # 0.040 H Neutrophils # 5.1 Lymphocytes # 2.5 Monocytes # 1.2 H Eosinophils # 0.1 Basophils # 0.0 Nucleated Red Blood Cells # 0.0 Sodium Level 135 Potassium Level 4.1 Chloride Level 101 Carbon Dioxide Level 28 Anion Gap 6 Blood Urea Nitrogen 16 Creatinine 0.58 Est Glomerular Filtrat Rate mL/min > 60 Glucose Level 90 Calcium Level 7.9 L Phosphorus Level 3.9 Magnesium Level 1.8 Prothrombin Time 16.4 H Prothrombin Time Ratio 1.3 INR International Normalized Ratio 1.31 Activated Partial Thromboplast Time 35.2 H Thrombin Time 17.7 Exam/Review of Systems Exam Vitals Vital Signs Date Temp Pulse Resp B/P (MAP) Pulse Ox O2 O2 Flow FiO2 Time Delivery Rate 07/13/18 98.0 59 19 95/55 (68) 95 15:21 07/13/18 Room Air 04:00 07/13/18 2.0 03:45 07/12/18 28 01:34 Intake and Output 07/12/18 07/12/18 07/13/18 1515:00 23:00 07:00 IntakeIntake Total 600 ml BalanceBalance 600 ml Results Results 24hrs Laboratory Tests Test 07/13/18 05:46 07/13/18 11:37 White Blood Count 9.0 Red Blood Count 2.83 L Hemoglobin 8.6 L Hematocrit 26.1 L Mean Corpuscular Volume 92.2 Mean Corpuscular Hemoglobin 30.4 Mean Corpuscular Hemoglobin Concent 33.0 Red Cell Distribution Width 16.6 H Platelet Count 257 272 Mean Platelet Volume 10.6 H Immature Granulocytes % 0.400 Neutrophils % 56.7 Lymphocytes % 28.3 Monocytes % 12.9 H Eosinophils % 1.4 Basophils % 0.3 Nucleated Red Blood Cells % 0.0 Immature Granulocytes # 0.040 H Neutrophils # 5.1 Lymphocytes # 2.5 Monocytes # 1.2 H Eosinophils # 0.1 Basophils # 0.0 Nucleated Red Blood Cells # 0.0 Sodium Level 135 Potassium Level 4.1 Chloride Level 101 Carbon Dioxide Level 28 Anion Gap 6 Blood Urea Nitrogen 16 Creatinine 0.58 Est Glomerular Filtrat Rate mL/min > 60 Glucose Level 90 Calcium Level 7.9 L Phosphorus Level 3.9 Magnesium Level 1.8 Prothrombin Time 16.4 H Prothrombin Time Ratio 1.3 INR International Normalized Ratio 1.31 Activated Partial Thromboplast Time 35.2 H Thrombin Time 17.7 Medications Medication Current Medications Fluticasone/ Vilanterol (Breo Ellipta 100-25 Mcg Inh) 1 inh DAILY INH Last administered on 07/13/18at 08:47; Admin Dose 1 INH; Start 07/05/18 at 09:00 Albuterol (Proventil 0.083% (Neb)) 2.5 mg Q2H RESP THERAPY PRN HHN SHORTNESS OF BREATH Last administered on 07/05/18at 07:43; Admin Dose 2.5 MG; Start 07/05/18 at 05:00 IV Flush (NS 3 ml) 3 ml PER PROTOCOL IV ; Start 07/05/18 at 05:00 Ondansetron HCl (Zofran Inj) 4 mg Q6H PRN IV NAUSEA/VOMITING; Start 07/05/18 at 05:00 Nitroglycerin (Nitroglycerin (Sl Tab) 0.4 Mg) 1 tab Q5M PRN SL .CHEST PAIN; Start 07/05/18 at 05:00 Acetaminophen (Tylenol Tab) 650 mg Q6H PRN PO .PAIN 1-3 OR TEMP; Start 07/05/18 at 05:00 Acetaminophen/ Hydrocodone Bitart ([place] (5/325)) 1 tab Q6H PRN PO .PAIN 4-6 Last administered on 07/11/18at 08:41; Admin Dose 1 TAB; Start 07/05/18 at 05:00 Docusate Sodium (Colace) 100 mg Q12H PRN PO .CONSTIPATION; Start 07/05/18 at 05:00 Magnesium Hydroxide (Milk Of Mag) 30 ml DAILY PRN PO .CONSTIPATION; Start 07/05/18 at 05:00 Pantoprazole (Protonix Tab) 40 mg DAILY@06 PO Last administered on 07/13/18at 06:06; Admin Dose 40 MG; Start 07/05/18 at 06:00 Apixaban (Eliquis) 5 mg BID PO Last administered on 07/11/18at 08:36; Admin Dose 5 MG; Start 07/05/18 at 09:00; Status Hold Morphine Sulfate (morphine) 6 mg Q4H PRN PO SEVERE PAIN LEVEL 7-10; Start 07/05 at 20:30 Metoprolol Tartrate (Lopressor) 25 mg BID PO Last administered on 07/13/18at 08:51; Admin Dose 25 MG; Start 07/11/18 at 21:00 Potassium Chloride (Potassium Chloride Pwd/Soln) 40 meq DAILY PO Last administered on 07/13/18 08:48; Admin Dose 40 MEQ; Start 07/13/18 at 09:00 Furosemide (Lasix) 20 mg DAILY PO Last administered on 07/13/18at 08:50; Admin Dose 20 MG; Start 07/13/18 at 09:00 Spironolactone (Aldactone) 12.5 mg DAILY PO ; Start 07/14/18 at 09:00 FAVIOLA MERCER Jul 13, 2018 16:09
[2018-07-13] MEDS: APIXABAN 5 MG TABLET PO SCH (21:11)
[2018-07-14] VITALS (11 sets, daily range): BP systolic 91–109; BP diastolic 55–65; PULSE 85–110; RESP 17–18
[2018-07-14] MEDS: PANTOPRAZOLE (EC) 40 MG TAB PO SCH (05:22)
[2018-07-14] MEDS: METOPROLOL 25 MG TAB PO SCH ×2 (09:04→20:00)
[2018-07-14] MEDS: FUROSEMIDE 20 MG TAB PO SCH (09:04)
[2018-07-14] MEDS: APIXABAN 5 MG TABLET PO SCH (09:04)
[2018-07-14] MEDS: SPIRONOLACTONE 25 MG TAB PO SCH (09:04)
[2018-07-14] MEDS: POTASSIUM CHLORIDE 20 MEQ POWDER FOR ORAL SOLN PO SCH (09:05)
[2018-07-14] MEDS: FLUTICASONE/VILANTEROL 100-25 INH SCH (09:06)
--- NOTE | 2018-07-14 12:30 | PN ---
Date/Time of Note Date/Time of Note DATE: 07/14/18 TIME: 12:29 Objective Vitals Vital Signs Date Temp Pulse Resp B/P (MAP) Pulse Ox O2 O2 Flow FiO2 Time Delivery Rate 07/14/18 97.8 105 18 95/65 (75) 97 Room Air 11:53 07/14/18 2.0 28 00:16 Intake and Output 07/13/18 07/13/18 07/14/18 1515:00 23:00 07:00 IntakeIntake Total 300 ml 600 ml 500 ml BalanceBalance 300 ml 600 ml 500 ml Results Result Diagram: 07/14/1891707/14/18917 Medications Medications Current Medications Fluticasone/ Vilanterol (Breo Ellipta 100-25 Mcg Inh) 1 inh DAILY INH Last administered on 07/14/18at 09:06; Admin Dose 1 INH; Start 07/05/18 at 09:00 Albuterol (Proventil 0.083% (Neb)) 2.5 mg Q2H RESP THERAPY PRN HHN SHORTNESS OF BREATH Last administered on 07/05/18at 07:43; Admin Dose 2.5 MG; Start 07/05/18 at 05:00 IV Flush (NS 3 ml) 3 ml PER PROTOCOL IV ; Start 07/05/18 at 05:00 Ondansetron HCl (Zofran Inj) 4 mg Q6H PRN IV NAUSEA/VOMITING; Start 07/05/18 at 05:00 Nitroglycerin (Nitroglycerin (Sl Tab) 0.4 Mg) 1 tab Q5M PRN SL .CHEST PAIN; Start 07/05/18 at 05:00 Acetaminophen (Tylenol Tab) 650 mg Q6H PRN PO .PAIN 1-3 OR TEMP; Start 07/05/18 at 05:00 Acetaminophen/ Hydrocodone Bitart ([place] (5/325)) 1 tab Q6H PRN PO .PAIN 4-6 Last administered on 07/11/18at 08:41; Admin Dose 1 TAB; Start 07/05/18 at 05:00 Docusate Sodium (Colace) 100 mg Q12H PRN PO .CONSTIPATION; Start 07/05/18 at 05:00 Magnesium Hydroxide (Milk Of Mag) 30 ml DAILY PRN PO .CONSTIPATION; Start 07/05/18 at 05:00 Pantoprazole (Protonix Tab) 40 mg DAILY@06 PO Last administered on 07/14/18 05:22; Admin Dose 40 MG; Start 07/05/18 at 06:00 Apixaban (Eliquis) 5 mg BID PO Last administered on 07/14/18 09:04; Admin Dose 5 MG; Start 07/05/18 at 09:00; Status Hold Morphine Sulfate (morphine) 6 mg Q4H PRN PO SEVERE PAIN LEVEL 7-10; Start 07/05/18 at 20:30 Metoprolol Tartrate (Lopressor) 25 mg BID PO Last administered on 07/14/18 0 9:04; Admin Dose 25 MG; Start 07/11/18 at 21:00 Potassium Chloride (Potassium Chloride Pwd/Soln) 40 meq DAILY PO Last administered on 07/14/18 09:05; Admin Dose 40 MEQ; Start 07/13/18 at 09:00 Furosemide (Lasix) 20 mg DAILY PO Last administered on 07/14/18 09:04; Admin Dose 20 MG; Start 07/13/18 at 09:00 Spironolactone (Aldactone) 12.5 mg DAILY PO Last administered on 07/14/18 09:04; Admin Dose 12.5 MG; Start 07/14/18 at 09:00 VTE Prophylaxis Risk score (from Nsg)>0 risk: 2 SCD applied (from Nsg): No SCD contraindication: other Lines/Catheters IV Catheter Type: [place] in Place: No Assessment/Plan Hospital Course Subjective very mild rectal bleed again Objective Physical exam General: Patient is laying in bed and answers questions appropriately Mentation: Patient is alert and oriented 4, Head: Normocephalic atraumatic Eyes: EOMI, pupils reactive to light Neck: Supple, nontender, midline Respiratory: Clear to auscultation bilaterally Cardiovascular: regular rate, no obvious murmurs Gastrointestinal: non-tender to palpation, bowel sounds heard. Neurological: Moves all extremities spontaneously Skin: No new skin lesions Assessment/Plan Acute on chronic Diastolic HF-resolving - Swelling LE resolved - Cardiology on board and appreciate recommendations. - Lasix and Aldactone on board - ECHO results noted - Initial BNP elevated Questionable cirrhosis -Patient has a long drinking history, currently nondrinker -Ultrasound showing cirrhotic changes -Continue Lasix and spironolactone -Ultrasound shows ascites that is large enough to drain however patient refuses ultrasound paracentesis Atrial fib - Better rate controlled but now BP running on lower side. Will touch base with Cardiology on recommendations for dose adjustments to BB - Cardiology on board and appreciate recommendations - holding eliquis for now due to rectal bleed again, will need to speak with cardiology rectal bleed -mild, hgb stable -GI offered colonoscopy, patient refused, patient understands that this rectal bleed may also be a precursor to colon cancer however patient accepts the risk and still refuses colonoscopy. -hold eliquis Acute chest pain- resolved - last stress test was 12/2017 and negative COPD - continue neb treatments Pulm HTN - O2 as needed Peripheral neuropathy - improved with decreased swelling Disposition -watch BP -bleeding again with eliquis, will need to discuss with cardiology if safe to DC with eliquISATU Rosa Jul 14, 2018 12:30
--- NOTE | 2018-07-14 16:33 | CONS ---
Assessment/Plan Cardiology NYHA: II Heart Failure Type: Acute Heart Failure Type: Diastolic Assessment/Plan Hospital Course (Demo Recall) Preoperative cardiac risk stratification History of acute decompensated diastolic congestive heart failure-currently compensated Labile blood pressure Paroxysmal atrial fibrillation History of COPD Normal nuclear cardiac perfusion study 12/25/2017 Preserved left ventricular systolic ejection fraction echocardiogram 07/05/2018 ASD status post surgical repair -Patient currently compensated from a congestive heart failure standpoint -Continue diuretic as renal function and blood pressure permits, continue beta- blockers heart rate and blood pressure permits. -Please refer to my progress note discussing preoperative cardiac risk stratification -Antifungal agent to be on hold at the current time given recurrent bleeding. Restart when no further bleeding Consultation Date/Type/Reason Admit Date/Time Jul 05, 2018 at 03:44 Initial Consult Date Type of Consult Cardiology Date/Time of Note DATE: 07/14/18 TIME: 16:31 24 HR Interval Summary Free Text/Dictation Patient with recurrent rectal bleeding. She states this happened even prior to restarting anticoagulation last night. No shortness of breath, chest pain or palpitations Exam/Review of Systems Vital Signs Vitals Vital Signs Date Temp Pulse Resp B/P (MAP) Pulse Ox O2 O2 Flow FiO2 Time Delivery Rate 07/14/18 85 16:01 07/14/18 98.0 18 91/59 (70) 98 Room Air 15:38 07/14/18 2.0 28 00:16 Intake and Output 07/13/18 07/13/18 07/14/18 1515:00 23:00 07:00 IntakeIntake Total 300 ml 600 ml 500 ml BalanceBalance 300 ml 600 ml 500 ml Exam Constitutional: alert, oriented (No apparent distress) Neck: supple Respiratory: other (Coarse breath sounds bilaterally, no wheezing) Cardiovascular: regular rate and rhythm (S1-S2 heard) Gastrointestinal: soft, non-tender, bowel sounds Extremities: edema Labs Result Diagram: 07/14/1818 07/14/1818 Results 24hrs Laboratory Tests Test 07/14/18 09:18 White Blood Count 8.2 Red Blood Count 3.20 L Hemoglobin 9.7 L Hematocrit 29.9 L Mean Corpuscular Volume 93.4 Mean Corpuscular Hemoglobin 30.3 Mean Corpuscular Hemoglobin Concent 32.4 Red Cell Distribution Width 16.7 H Platelet Count 298 Mean Platelet Volume 10.6 H Immature Granulocytes % 0.200 Neutrophils % 59.2 Lymphocytes % 29.4 Monocytes % 9.5 Eosinophils % 1.2 Basophils % 0.5 Nucleated Red Blood Cells % 0.0 Immature Granulocytes # 0.020 Neutrophils # 4.9 Lymphocytes # 2.4 Monocytes # 0.8 Eosinophils # 0.1 Basophils # 0.0 Nucleated Red Blood Cells # 0.0 Sodium Level 137 Potassium Level 4.0 Chloride Level 103 Carbon Dioxide Level 26 Anion Gap 8 Blood Urea Nitrogen 14 Creatinine 0.65 Est Glomerular Filtrat Rate mL/min > 60 Glucose Level 105 Calcium Level 8.3 L Magnesium Level 1.8 Total Bilirubin 0.4 Direct Bilirubin 0.00 Indirect Bilirubin 0.4 Aspartate Amino Transf (AST/SGOT) 49 H Alanine Aminotransferase (ALT/SGPT) 23 Alkaline Phosphatase 99 Total Protein 6.2 Albumin 2.4 L Globulin 3.80 H Albumin/Globulin Ratio 0.63 Medications Medications Current Medications Fluticasone/ Vilanterol (Breo Ellipta 100-25 Mcg Inh) 1 inh DAILY INH Last administered on 07/14/18at 09:06; Admin Dose 1 INH; Start 07/05/18 at 09:00 Albuterol (Proventil 0.083% (Neb)) 2.5 mg Q2H RESP THERAPY PRN HHN SHORTNESS OF BREATH Last administered on 07/05/18at 07:43; Admin Dose 2.5 MG; Start 07/05/18 a t 05:00 IV Flush (NS 3 ml) 3 ml PER PROTOCOL IV ; Start 07/05/18 at 05:00 Ondansetron HCl (Zofran Inj) 4 mg Q6H PRN IV NAUSEA/VOMITING; Start 07/05/18 at 05:00 Nitroglycerin (Nitroglycerin (Sl Tab) 0.4 Mg) 1 tab Q5M PRN SL .CHEST PAIN; Start 07/05/18 at 05:00 Acetaminophen (Tylenol Tab) 650 mg Q6H PRN PO .PAIN 1-3 OR TEMP; Start 07/05/18 at 05:00 Acetaminophen/ Hydrocodone Bitart ([place] (5/325)) 1 tab Q6H PRN PO .PAIN 4-6 Last administered on 07/11/18at 08:41; Admin Dose 1 TAB; Start 07/05/18 at 05:00 Docusate Sodium (Colace) 100 mg Q12H PRN PO .CONSTIPATION; Start 07/05/18 at 05:00 Magnesium Hydroxide (Milk Of Mag) 30 ml DAILY PRN PO .CONSTIPATION; Start 07/05/18 at 05:00 Pantoprazole (Protonix Tab) 40 mg DAILY@06 PO Last administered on 07/14/18 05:22; Admin Dose 40 MG; Start 07/05/18 at 06:00 Apixaban (Eliquis) 5 mg BID PO Last administered on 07/14/18 09:04; Admin Dose 5 MG; Start 07/05/18 at 09:00; Status Hold Morphine Sulfate (morphine) 6 mg Q4H PRN PO SEVERE PAIN LEVEL 7-10; Start 07/05/18 at 20:30 Metoprolol Tartrate (Lopressor) 25 mg BID PO Last administered on 07/14/18 09:04; Admin Dose 25 MG; Start 07/11/18 at 21:00 Potassium Chloride (Potassium Chloride Pwd/Soln) 40 meq DAILY PO Last administered on 07/14/18 09:05; Admin Dose 40 MEQ; Start 07/13/18 at 09:00 Furosemide (Lasix) 20 mg DAILY PO Last administered on 07/14/18 09:04; Admin Dose 20 MG; Start 07/13/18 at 09:00 Spironolactone (Aldactone) 12.5 mg DAILY PO Last administered on 07/14/18 09:0 4; Admin Dose 12.5 MG; Start 07/14/18 at 09:00 Ranulfo Gold DO Jul 14, 2018 16:33
[2018-07-15] VITALS (9 sets, daily range): BP systolic 94–119; BP diastolic 61–74; PULSE 85–105; RESP 18–20
[2018-07-15] MEDS: PANTOPRAZOLE (EC) 40 MG TAB PO SCH (05:45)
[2018-07-15] MEDS: SPIRONOLACTONE 25 MG TAB PO SCH (08:57)
[2018-07-15] MEDS: POTASSIUM CHLORIDE 20 MEQ POWDER FOR ORAL SOLN PO SCH (08:57)
[2018-07-15] MEDS: FLUTICASONE/VILANTEROL 100-25 INH SCH (08:57)
[2018-07-15] MEDS: FUROSEMIDE 20 MG TAB PO SCH (08:58)
[2018-07-15] MEDS: METOPROLOL 25 MG TAB PO SCH (08:59)
[2018-07-15] MEDS ORDERED: ALBU8.5H8 INH (10:19)
[2018-07-15] MEDS ORDERED: ADV25050 INHALATION (10:19)
[2018-07-15] MEDS ORDERED: METO-448 PO (10:19)
[2018-07-15] MEDS ORDERED: SPIR25TA PO (10:19)
[2018-07-15] MEDS ORDERED: LAS20 PO (10:19)
--- NOTE | 2018-07-15 10:27 | DS ---
Date/Time of Note Date/Time of Note DATE: 07/15/18 TIME: 10:27 Discharge Summary Admission/Discharge Info Admit Date/Time Jul 05, 2018 at 03:44 Discharge Date/Time Patient Condition: Stable Hospital Course Patient is a female the past medical history significant for alcoholism as well as hypertension and COPD who presents to [facility] as a transfer from outside facility. Patient was originally transferred for lower extremity edema and pain with ambulation. Patient was diagnosed with acute on chronic diastolic heart failure as well as likely cirrhosis. Patient was started on appropriate diuretics. Patient was also treated for her paroxysmal atrial fibrillation by cardiology with appropriate changes in her medication. During this time patient's lower extremities had significant improvement in her swelling as was she was started on Lasix as well as Aldactone. Eliquis was started by cardiology for her paroxysmal A. fib however patient developed rectal bleeding. Patient was seen by gastroenterology who offered colonoscopy however patient refused. Patient understands the risks of refusing colonoscopy with rectal bleed including possible GI cancer. Patient was also diagnosed with likely cirrhosis on ultrasound and had some moderate ascites seen on ultrasound as well. Patient was offered ultrasound paracentesis however once again she refused the paracentesis as well. Patient was stopped on Eliquis due to the rectal bleed however after an attempt to reinitiate after rectal bleed subsided, patient will now need to follow-up with her primary care provider in order to initiate proper timing of initiating anticoagulation due to her paroxysmal A. fib. At this time due to recurrent rectal bleed it is unsafe to be on anticoagulant and it was explained to the patient that it is imperative that she follow-up with her primary care provider in order to be placed on an anticoagulant in the future. Patient understands. Patient was also seen by physical therapy and a half-way facility was offered to the patient, however patient refused all half-way facility and just wanted home health physical therapy as well as a walker. Patient is alert and oriented x4 and able to make her own decisions. Patient will be discharged with appropriate new prescriptions. Discharge diagnosis Acute on chronic diastolic heart failure Questionable cirrhosis Paroxysmal atrial fibrillation Rectal bleed, stable Chest pain, resolved COPD Pulmonary hypertension Peripheral neuropathy Home Meds Active Scripts Furosemide (Lasix) 20 Mg Tab, 20 MG PO DAILY for 30 Days, #30 TAB 3 Refills Prov:ISATU ARDON 07/15/18 Spironolactone* (Aldactone*) 25 Mg Tablet, 12.5 MG PO DAILY for 30 Days, #15 TAB 3 Refills Prov:ISATU ARDON 07/15/18 Metoprolol Tartrate* (Lopressor*) 25 Mg Tab, 25 MG PO BID for 30 Days, #60 TAB 3 Refills Prov:ISATU ARDON 07/15/18 Salmeterol Xinaf/Fluticasone* (Advair*) 250-50 Diskus Inhaler, 1 INH INHALATION BID for 30 Days, #1 INHALER 3 Refills Prov:ISATU ARDON 07/15/18 Albuterol Sulfate* (Proair HFA*) 8.5 Gm Hfa.aer.ad, 2 PUFF INH Q4 PRN for WHEEZING, #1 INHALER 3 Refills Prov:ISATU ARDON 07/15/18 Carvedilol* (Carvedilol*) 6.25 Mg Tablet, 6.25 MG PO BID, #60 TAB Prov:THU THORPE NP 12/26/17 Amlodipine Besylate* (Amlodipine Besylate*) 5 Mg Tablet, 5 MG PO DAILY, #30 TAB Prov:THU THORPE [employer]AND MANAGER 12/26/17 Primary Care Provider Not On Staff Doctor Time spent on discharge: > 30 minutes Pending Labs Laboratory Tests Test 07/15/18 05:09 07/15/18 05:10 Sodium Level 136 mmol/L (135-144) Potassium Level 4.2 mmol/L (3.5-5.1) Chloride Level 102 mmol/L (97-110) Carbon Dioxide Level 26 mmol/L (21-31) Anion Gap 8 (5-13) Blood Urea Nitrogen 13 mg/dl (7-20) Creatinine 0.65 mg/dl (0.44-1.00) Est Glomerular Filtrat > 60 mL/min (>60) Rate mL/min Glucose Level 88 mg/dl (70-220) Calcium Level 8.0 mg/dl (8.4-10.2) Phosphorus Level 4.4 mg/dl (2.5-4.9) Magnesium Level 1.7 mg/dl (1.7-2.5) White Blood Count 6.7 10^3/ul (4.8-10.8) Red Blood Count 2.81 10^6/ul (4.20-5.40) Hemoglobin 8.6 g/dl (12.0-16.0) Hematocrit 26.1 % (37.0-47.0) Mean Corpuscular Volume 92.9 fl (82.0-101.0) Mean Corpuscular Hemoglobin 30.6 pg (29.0-33.0) Mean Corpuscular 33.0 g/dl (32.0-37.0) Hemoglobin Concent Red Cell Distribution Width 17.0 % (11.5-14.5) Platelet Count 255 10^3/UL (140-415) Mean Platelet Volume 10.2 fl (7.4-10.4) Immature Granulocytes % 0.300 % (0.001-0.429) Neutrophils % 55.7 % (39.0-77.0) Lymphocytes % 31.7 % (15.0-51.0) Monocytes % 9.9 % (0.0-11.0) Eosinophils % 2.1 % (0.0-7.0) Basophils % 0.3 % (0.0-2.0) Nucleated Red Blood Cells % 0.0 /100WBC (0.0-0.0) Immature Granulocytes # 0.020 10^3/ul (0.0-0.031) Neutrophils # 3.7 10^3/ul (1.6-7.5) Lymphocytes # 2.1 10^3/ul (0.8-2.9) Monocytes # 0.7 10^3/ul (0.3-0.9) Eosinophils # 0.1 10^3/ul (0.0-0.5) Basophils # 0.0 10^3/ul (0.0-0.1) Nucleated Red Blood Cells # 0.0 10^3/ul (0.0-0.0) ISATU ARDON Jul 15, 2018 10:27
--- NOTE | 2018-07-15 10:28 | PDOCDIS ---
Discharge Instructions CONDITION [id number] Patient Condition: [id number] Stable ACTIVITY: [id number] Activity Restrictions: Hoeoy3y Slowly Increase Activity FOLLOW UP/APPOINTMENTS Follow-up Plan New prescriptions will be provided, please play close attention to med reconciliation form, please do not continue previous home medication. New medication will be provided. Please follow-up with your primary care provider as soon as possible in order to discuss follow-up care for new onset cirrhosis as well as possible anticoagulation for your atrial fibrillation. ISATU ARDON Jul 15, 2018 10:28
--- NOTE | 2018-07-15 11:49 | CONS ---
Assessment/Plan Cardiology NYHA: II Heart Failure Type: Acute Heart Failure Type: Diastolic Assessment/Plan Hospital Course (Demo Recall) Preoperative cardiac risk stratification History of acute decompensated diastolic congestive heart failure-currently compensated Labile blood pressure Paroxysmal atrial fibrillation History of COPD Normal nuclear cardiac perfusion study 12/25/2017 Preserved left ventricular systolic ejection fraction echocardiogram 07/05/2018 ASD status post surgical repair -Patient currently compensated from a congestive heart failure standpoint -Continue diuretic as renal function and blood pressure permits, continue beta- blockers heart rate and blood pressure permits. -Please refer to my progress note 2 discussing preoperative cardiac risk stratification. Patient currently refusing colonoscopy -Anticoagulant agent has been on hold at the current time given recurrent bleeding. Restart when no further bleeding -Patient with recurrent episodes of atrial fibrillation with rapid ventricular rates. Her borderline blood pressure limits increasing beta-devon. Given patient is off anticoagulation because of bleeding, would ideally want her to be maintained in sinus rhythm as much as possible. We will start amiodarone 200 mg p.o. twice daily for 1 week and then decrease to daily. Patient to follow-up with director of optimization as an outpatient the next few weeks to decide regarding continuation or not. -We will order magnesium supplementation. Consultation Date/Type/Reason Admit Date/Time Jul 05, 2018 at 03:44 Initial Consult Date Type of Consult Cardiology Date/Time of Note DATE: 07/15/18 TIME: 11:47 24 HR Interval Summary Free Text/Dictation Denies shortness of breath, chest pain. Was having mild palpitations earlier this morning which has since resolved Exam/Review of Systems Vital Signs Vitals Vital Signs Date Temp Pulse Resp B/P (MAP) Pulse Ox O2 O2 Flow FiO2 Time Delivery Rate 07/15/18 98.8 88 18 103/68 98 Room Air 11:39 (80) 07/15/18 2.0 04:31 07/14/18 28 00:16 Intake and Output 07/14/18 07/14/18 07/15/18 1515:00 23:00 07:00 IntakeIntake Total 960 ml 820 ml BalanceBalance 960 ml 820 ml Exam Constitutional: alert, oriented (No apparent distress) Head: normocephalic Respiratory: other (Coarse breath sounds bilaterally, no wheezing) Cardiovascular: regular rate and rhythm (S1-S2 heard) Gastrointestinal: soft, non-tender, bowel sounds Extremities: edema (Trace) Labs Result Diagram: 07/15/18 0510 07/15/18 0509 Results 24hrs Laboratory Tests Test 07/15/18 05:09 07/15/18 05:10 Sodium Level 136 Potassium Level 4.2 Chloride Level 102 Carbon Dioxide Level 26 Anion Gap 8 Blood Urea Nitrogen 13 Creatinine 0.65 Est Glomerular Filtrat Rate mL/min > 60 Glucose Level 88 Calcium Level 8.0 L Phosphorus Level 4.4 Magnesium Level 1.7 White Blood Count 6.7 Red Blood Count 2.81 L Hemoglobin 8.6 L Hematocrit 26.1 L Mean Corpuscular Volume 92.9 Mean Corpuscular Hemoglobin 30.6 Mean Corpuscular Hemoglobin Concent 33.0 Red Cell Distribution Width 17.0 H Platelet Count 255 Mean Platelet Volume 10.2 Immature Granulocytes % 0.300 Neutrophils % 55.7 Lymphocytes % 31.7 Monocytes % 9.9 Eosinophils % 2.1 Basophils % 0.3 Nucleated Red Blood Cells % 0.0 Immature Granulocytes # 0.020 Neutrophils # 3.7 Lymphocytes # 2.1 Monocytes # 0.7 Eosinophils # 0.1 Basophils # 0.0 Nucleated Red Blood Cells # 0.0 Medications Medications Current Medications Fluticasone/ Vilanterol (Breo Ellipta 100-25 Mcg Inh) 1 inh DAILY INH Last administered on 07/15/18at 08:57; Admin Dose 1 INH; Start 07/05/18 at 09:00 Albuterol (Proventil 0.083% (Neb)) 2.5 mg Q2H RESP THERAPY PRN HHN SHORTNESS OF BREATH Last administered on 07/05/18at 07:43; Admin Dose 2.5 MG; Start 07/05/18 at 05:00 IV Flush (NS 3 ml) 3 ml PER PROTOCOL IV ; Start 07/05/18 at 05:00 Ondansetron HCl (Zofran Inj) 4 mg Q6H PRN IV NAUSEA/VOMITING; Start 07/05/18 at 05:00 Nitroglycerin (Nitroglycerin (Sl Tab) 0.4 Mg) 1 tab Q5M PRN SL .CHEST PAIN; Start 07/05/18 at 05:00 Acetaminophen (Tylenol Tab) 650 mg Q6H PRN PO .PAIN 1-3 OR TEMP Last administered on 07/14/18at 23:38; Admin Dose 650 MG; Start 07/05/18 at 05:00 Acetaminophen/ Hydrocodone Bitart ([place] (5/325)) 1 tab Q6H PRN PO .PAIN 4-6 L ast administered on 07/11/18 08:41; Admin Dose 1 TAB; Start 07/05/18 at 05:00 Docusate Sodium (Colace) 100 mg Q12H PRN PO .CONSTIPATION; Start 07/05/18 at 05:00 Magnesium Hydroxide (Milk Of Mag) 30 ml DAILY PRN PO .CONSTIPATION; Start 07/05/18 at 05:00 Pantoprazole (Protonix Tab) 40 mg DAILY@06 PO Last administered on 07/15/18 05:45; Admin Dose 40 MG; Start 07/05/18 at 06:00 Apixaban (Eliquis) 5 mg BID PO Last administered on 07/14/18 09:04; Admin Dose 5 MG; Start 07/05/18 at 09:00; Status Hold Morphine Sulfate (morphine) 6 mg Q4H PRN PO SEVERE PAIN LEVEL 7-10; Start 07/05/18 at 20:30 Metoprolol Tartrate (Lopressor) 25 mg BID PO Last administered on 07/15/18 08:59; Admin Dose 25 MG; Start 07/11/18 at 21:00 Potassium Chloride (Potassium Chloride Pwd/Soln) 40 meq DAILY PO Last admi nistered on 07/15/18 08:57; Admin Dose 40 MEQ; Start 07/13/18 at 09:00 Furosemide (Lasix) 20 mg DAILY PO Last administered on 07/15/18 08:58; Admin Dose 20 MG; Start 07/13/18 at 09:00 Spironolactone (Aldactone) 12.5 mg DAILY PO Last administered on 07/15/18 08:57; Admin Dose 12.5 MG; Start 07/14/18 at 09:00 Ranulfo Gold DO Jul 15, 2018 11:49
[2018-07-15] MEDS ORDERED: AMIODARONE 200 MG TAB PO SCH (12:00)
[2018-07-15] MEDS ORDERED: MAGNESIUM SULFATE 2 GM/50 ML 50 ML IVPB ONE (13:30)
--- NOTE | 2018-07-15 13:54 | RADRPT ---
Vent Rate: 97 bpm RR Interval: 0 msec [place] Interval: 0 msec QRS Duration: 70 msec QT Interval: 348 msec QTC Interval: 441 msec P-R-T [place]: 0 - 77 - -58 degrees Sinus rhythm Nonspecific ST and T wave abnormality Abnormal ECG Electronically Signed By: Mahesh Wang
== END 2018-07-15 16:05 | disposition home health service (06) | DRG 292 ==
LOC: 6WM 03:44
PROVIDERS: ADMIT Internal Medicine; ATTEND Internal Medicine
DX: I11.0 Hypertensive heart disease with heart failure (principal); K62.5 Hemorrhage of anus and rectum; F10.288 Alcohol dependence with other alcohol-induced disorder; I50.33 Acute on chronic diastolic (congestive) heart failure; I48.0 Paroxysmal atrial fibrillation; J44.9 Chronic obstructive pulmonary disease, unspecified; E87.6 Hypokalemia; K70.31 Alcoholic cirrhosis of liver with ascites; I27.20 Pulmonary hypertension, unspecified; G62.9 Polyneuropathy, unspecified; K70.0 Alcoholic fatty liver; R07.9 Chest pain, unspecified; Z79.01 Long term (current) use of anticoagulants; Z87.891 Personal history of nicotine dependence
CPT/HCPCS: 71045; 76705; 80048; 80053; 80061; 80069; 80076; 81001; 82550; 82553; 83036; 83735; 83880; 84100; 84443; 84484; 85025; 85049; 85610; 85670; 85730; 93005; 93306; 94664; 97110; 97116; 97162; 97530; J0696; J1940; J3475

== ENCOUNTER 2018-07-18 15:50 | Inpatient (IN) | payer OTHER ==
[~2018-07-18] VITALS: Ht 167.6 cm; Wt 71.9 kg
[~2018-07-18 15:50] MED LIST changes: -AMLO-145 PO; -CARV6.2579 PO; +LAS20 PO; +METO-448 PO; +SPIR25TA PO
[2018-07-18 18:26] VITALS: Ht 167.6 cm; Wt 71.9 kg
[2018-07-18 18:31] VITALS: BP 124/74; PULSE 71; RESP 18
[2018-07-18] MEDS ORDERED: NITROGLYCERIN (SL) 0.4 MG TAB SL PRN (19:00)
[2018-07-18] MEDS ORDERED: MAGNESIUM HYDROXIDE 30ML CUP PO PRN (19:00)
[2018-07-18] MEDS ORDERED: ACETAMINOPHEN 325 MG TAB PO PRN (19:00)
[2018-07-18] MEDS ORDERED: NACL 0.9% 3 ML SYG IV SCH (19:00)
[2018-07-18] MEDS ORDERED: DOCUSATE SODIUM 100 MG CAP PO PRN (19:00)
[2018-07-18] MEDS ORDERED: ONDANSETRON 4 MG INJ IV PRN (19:00)
[2018-07-18] MEDS ORDERED: ALBUTEROL HFA 8 GM INHALER INH PRN (19:00)
--- NOTE | 2018-07-18 19:23 | HP ---
Date/Time of Note Date/Time of Note DATE: 07/18/18 TIME: 19:16 Assessment/Plan VTE Prophylaxis SCD applied (from Nsg): Yes Pharmacological prophylaxis: NA/contraindicated Pharm contraindication: bleeding Lines/Catheters IV Catheter Type (from Nrsg): Peripheral IV Assessment/Plan Assessment/Plan 1. Afib with RVR- resolved - patient now in sinus rhythm - will continue on BB and amiodarone - If reoccur will consult Cardiology for further input - holding anticoagulation given recent GI bleed 2. LE swelling - most likely secondary to medication noncompliance - Patient has not taken her diuretics for 2 days - BNP 288 at OSH - will restart Lasix and Aldactone 3. Mild diastolic HF exacerbation - Lasix and Aldactone on board - Hold off on Cardiology consultation for now 4. COPD - will continue nebs PRN - respiratory status stable 5. Pulm HTN - O2 as needed 6. h/o cirrhosis - on aldactone - refused GI intervention during last admission 7. Diet - Cardiac 8. DVT ppx - SCD 9. Disposition - Admit to telemetry for treatment of afib with RVR and acute diastolic HF HPI/ROS Admit Date/Time Admit Date/Time Jul 18, 2018 at 17:10 Hx of Present Illness 63 yo F with PMH afib with RVR, recent GI bleed, HTN, CHF, and COPD presented to OSH complaining of swelling LE bilaterally. Patient was recently discharge from [facility] on 07/15/18 and was told to fill her medications today, 07/18/18. Patient was found in afib with RVR at [facility] prior to transfer and given a dose of diltiazem. Her D-dimer was elevated and CTA was performed which was found to be negative for PE. Patient was also noted to have a BNP 288. Patient denies any chest pain, shortness of breath, palpitations, nausea, vomiting, dizziness, constipation, diarrhea, or further GI bleeding. ROS All 12 systems reviewed and pertinent positives as per HPI. All others negative. Constitutional: No fatigue, No nausea ENT: No congestion Respiratory: No cough, No shortness of breath, No sputum, No wheezing Cardiovascular: edema; No chest pain, No lightheadedness, No palpitations Gastrointestinal: No pain, No constipation, No decreased appetite, No nausea, No vomiting Genitourinary: no complaints Musculoskeletal: swelling Skin: No laceration, No rash Neurologic: No confusion, No focal-weakness, No syncope Endocrine: no complaints Lymphatic: no complaints Psychological: nl mood/affect Immunologic: no complaints PMH/Family/Social Past Medical History Medical History: congestive heart failure, high cholesterol, hypertension, other (atrial fibrillation) Medications Current Medications Albuterol (Ventolin Hfa) 2 puff Q4H PRN INH WHEEZING; Start 07/18/18 at 19:00 Furosemide (Lasix) 20 mg DAILY PO ; Start 07/19/18 at 09:00 Metoprolol Tartrate (Lopressor) 25 mg BID PO ; Start 07/18/18 at 21:00 Spironolactone (Aldactone) 12.5 mg DAILY PO ; Start 07/19/18 at 09:00 Miscellaneous Information 1 inh BID INHALATION ; Start 07/18/18 at 21:00; Status UNV IV Flush (NS 3 ml) 3 ml PER PROTOCOL IV ; Start 07/18/18 at 19:00 Ondansetron HCl (Zofran Inj) 4 mg Q6H PRN IV NAUSEA/VOMITING; Start 07/18/18 at 19:00 Nitroglycerin (Nitroglycerin (Sl Tab) 0.4 Mg) 1 tab Q5M PRN SL .CHEST PAIN; Start 07/18/18 at 19:00 Acetaminophen (Tylenol Tab) 650 mg Q6H PRN PO .PAIN 1-3 OR TEMP; Start 07/18/18 at 19:00 Docusate Sodium (Colace) 100 mg Q12H PRN PO .CONSTIPATION; Start 07/18/18 at 19:00 Magnesium Hydroxide (Milk Of Mag) 30 ml DAILY PRN PO .CONSTIPATION; Start 07/18/18 at 19:00 Pantoprazole (Protonix Tab) 40 mg DAILY@06 PO ; Start 07/19/18 at 06:00 Amiodarone HCl (Cordarone) 200 mg DAILY PO ; Start 07/19/18 at 09:00 Coded Allergies: No Known Allergy (Unverified , 12/24/17) Past Surgical History Past Surgical Hx: noncontributory, other Family History Significant Family History: no pertinent family hx Social History Alcohol Use: rarely Smoking Status: Never smoker Drug Use: none Exam/Review of Systems Vital Signs Vitals Vital Signs Date Temp Pulse Resp B/P (MAP) Pulse Ox O2 O2 Flow FiO2 Time Delivery Rate 07/18/18 98.3 71 18 124/74 94 Room Air 18:31 (91) Exam Exam General: Patient is laying in bed and answers questions appropriately HEENT: NC/AT. EOMI, pupils reactive to light Neck: Supple, nontender, midline Lungs: clear to auscultation bilaterally. no wheezing or rhonchi CVS: S1, S2, regular rate and rhythm, no obvious murmurs GI: soft, non-tender to palpation, nondistended, bowel sounds heard. no rebound or guarding Neurological: Moves all extremities spontaneously Ext: swelling of lower extremities bilaterally with 2+ pitting edema ankles to feet Skin: No new skin lesions Additional Comments Home medications reviewed CTA from OSH negative for acute PE NEIL TERRELL MD Jul 18, 2018 19:23
[2018-07-18] MEDS ORDERED: ALBUTEROL 0.083% (NEB) 2.5 MG/3 ML AMP HHN PRN (19:30)
[2018-07-18 20:00] VITALS: BP 134/86; PULSE 117; RESP 20
[2018-07-18 20:24] VITALS: PULSE 120
[2018-07-18] MEDS: FUROSEMIDE 20 MG INJ IV SCH (20:29)
[2018-07-18] MEDS: METOPROLOL 25 MG TAB PO SCH (20:30)
[2018-07-19] VITALS (15 sets, daily range): BP systolic 84–113; BP diastolic 51–69; PULSE 69–157; RESP 16–20
[2018-07-19] MEDS: FLUTICASONE/VILANTEROL 100-25 INH SCH ×2 (01:51→09:16)
[2018-07-19] MEDS: FUROSEMIDE 20 MG INJ IV SCH ×2 (06:00→17:52)
[2018-07-19] MEDS: PANTOPRAZOLE (EC) 40 MG TAB PO SCH (06:17)
[2018-07-19] MEDS: METOPROLOL 25 MG TAB PO SCH ×2 (09:00→20:25)
[2018-07-19] MEDS ORDERED: FUROSEMIDE 20 MG TAB PO SCH (09:00)
[2018-07-19] MEDS: SPIRONOLACTONE 25 MG TAB PO SCH (09:16)
[2018-07-19] MEDS: AMIODARONE 200 MG TAB PO SCH (09:18)
--- NOTE | 2018-07-19 14:52 | PN ---
Date/Time of Note Date/Time of Note DATE: 07/19/18 TIME: 14:52 Assessment/Plan VTE Prophylaxis Risk score (from Ns)>0 risk: 5 SCD applied (from Ns): Yes Pharmacological prophylaxis: NA/contraindicated Pharm contraindication: anticoag not tolerated Lines/Catheters IV [facility] Saline Lock Assessment/Plan Hospital Course SUBJECTIVE: Denies any dyspnea. Remains in sinus rhythm. OBJECTIVE: Physical Exam General: Adequately build 63 year-old female lying in bed in no apparent distress. HEENT: Normocephalic, atraumatic. Eyes: Anicteric sclerae, conjunctivae clear. ENT: Nasal septum midline, oral mucosa moist. Neck supple, JVD noticed. Respiratory: Bilaterally diminished breath sounds. No use of accessory muscles of respiration. No adventitious breath sounds. Cardiovascular: S1, S2 heard. Regular rate and rhythm. Abdomen: Soft, nontender, and nondistended. Bowel sounds positive in all 4 quadrants. Genitourinary: Deferred. Extremities: No cyanosis, no clubbing. Bilateral lower extremity 2+ edema. Peripheral pulses palpable. Neurologic: Cranial nerves II through XII grossly intact. The patient is awake, alert, and oriented. Skin: Normal skin turgor. No skin rashes. Labs & Vitals per chart ASSESSMENT & PLAN 63-year-old female with comorbidities including hypertension, pulmonary hypertension, diastolic heart failure, COPD, atrial fibrillation, and ASD repair in the remote past. The patient went to an outside facility because of bilateral lower extremity edema. Over there, the patient was noticed to atrial fibrillation with RVR. Therefore, the patient was given a dose of Cardizem and the patient was transferred to [facility] for further evaluation because of insurance reasons. 1. Atrial fibrillation with rapid ventricular response. -Currently in sinus rhythm. -Continue beta-blockers and amiodarone. -Anticoagulation on hold because of recent GI bleed. 2. Acute on chronic diastolic heart failure exacerbation -Continue diuresis. 3. COPD. -Continue PRN inhaled bronchodilators (LESLIE) and scheduled LABA. 4. Pulmonary hypertension. -Continue supplemental oxygen. 5. History of cirrhosis -On Aldactone. -Refused gastroenterology intervention during last admission. 6. Fluids, electrolytes, and nutrition. -Low-cholesterol diet. 7. DVT prophylaxis -Bilateral SCDs. 8. Plan for -Continue IV diuresis -Plan is to discharge patient home once clinically stable. -Replete electrolytes. The patient was seen in collaboration with Dr. Castillo. Result Diagram: 07/19/18 0603 07/19/18 0603 Results 24hrs Laboratory Tests Test 07/19/18 06:03 White Blood Count 7.2 Red Blood Count 2.65 L Hemoglobin 8.2 L Hematocrit 24.6 L Mean Corpuscular Volume 92.8 Mean Corpuscular Hemoglobin 30.9 Mean Corpuscular Hemoglobin Concent 33.3 Red Cell Distribution Width 16.8 H Platelet Count 278 Mean Platelet Volume 9.7 Immature Granulocytes % 0.400 Neutrophils % 66.1 Lymphocytes % 21.8 Monocytes % 9.3 Eosinophils % 2.0 Basophils % 0.4 Nucleated Red Blood Cells % 0.0 Immature Granulocytes # 0.030 Neutrophils # 4.7 Lymphocytes # 1.6 Monocytes # 0.7 Eosinophils # 0.1 Basophils # 0.0 Nucleated Red Blood Cells # 0.0 Sodium Level 136 Potassium Level 3.1 L Chloride Level 105 Carbon Dioxide Level 24 Anion Gap 7 Blood Urea Nitrogen 8 Creatinine 0.53 Est Glomerular Filtrat Rate mL/min > 60 Glucose Level 95 Hemoglobin A1c 4.5 Calcium Level 7.8 L Magnesium Level 1.7 Total Bilirubin 0.3 Direct Bilirubin 0.00 Indirect Bilirubin 0.3 Aspartate Amino Transf (AST/SGOT) 45 Alanine Aminotransferase (ALT/SGPT) 31 Alkaline Phosphatase 88 Total Protein 5.5 L Albumin 2.1 L Globulin 3.40 H Albumin/Globulin Ratio 0.61 Thyroid Stimulating Hormone (TSH) 4.700 H Exam/Review of Systems Exam Vitals Vital Signs Date Temp Pulse Resp B/P (MAP) Pulse Ox O2 O2 Flow FiO2 Time Delivery Rate 07/19/18 157 12:22 07/19/18 97.6 18 113/69 96 11:11 (84) 07/18/18 Room Air 18:31 Intake and Output 07/18/18 07/18/18 07/19/18 1515:00 23:00 07:00 IntakeIntake Total 400 ml BalanceBalance 400 ml Results Results 24hrs Laboratory Tests Test 07/19/18 06:03 White Blood Count 7.2 Red Blood Count 2.65 L Hemoglobin 8.2 L Hematocrit 24.6 L Mean Corpuscular Volume 92.8 Mean Corpuscular Hemoglobin 30.9 Mean Corpuscular Hemoglobin Concent 33.3 Red Cell Distribution Width 16.8 H Platelet Count 278 Mean Platelet Volume 9.7 Immature Granulocytes % 0.400 Neutrophils % 66.1 Lymphocytes % 21.8 Monocytes % 9.3 Eosinophils % 2.0 Basophils % 0.4 Nucleated Red Blood Cells % 0.0 Immature Granulocytes # 0.030 Neutrophils # 4.7 Lymphocytes # 1.6 Monocytes # 0.7 Eosinophils # 0.1 Basophils # 0.0 Nucleated Red Blood Cells # 0.0 Sodium Level 136 Potassium Level 3.1 L Chloride Level 105 Carbon Dioxide Level 24 Anion Gap 7 Blood Urea Nitrogen 8 Creatinine 0.53 Est Glomerular Filtrat Rate mL/min > 60 Glucose Level 95 Hemoglobin A1c 4.5 Calcium Level 7.8 L Magnesium Level 1.7 Total Bilirubin 0.3 Direct Bilirubin 0.00 Indirect Bilirubin 0.3 Aspartate Amino Transf (AST/SGOT) 45 Alanine Aminotransferase (ALT/SGPT) 31 Alkaline Phosphatase 88 Total Protein 5.5 L Albumin 2.1 L Globulin 3.40 H Albumin/Globulin Ratio 0.61 Thyroid Stimulating Hormone (TSH) 4.700 H Medications Medication Current Medications Metoprolol Tartrate (Lopressor) 25 mg BID PO Last administered on 07/18/18at 20:30; Admin Dose 25 MG; Start 07/18/18 at 21:00 Spironolactone (Aldactone) 12.5 mg DAILY PO Last administered on 07/19/18 09:16; Admin Dose 12.5 MG; Start 07/19/18 at 09:00 Fluticasone/ Vilanterol (Breo Ellipta 100-25 Mcg Inh) 1 inh DAILY INH Last administered on 07/19/18 09:16; Admin Dose 1 INH; Start 07/19/18 at 01:30 IV Flush (NS 3 ml) 3 ml PER PROTOCOL IV ; Start 07/18/18 at 19:00 Ondansetron HCl (Zofran Inj) 4 mg Q6H PRN IV NAUSEA/VOMITING; Start 07/18/18 at 19:00 Nitroglycerin (Nitroglycerin (Sl Tab) 0.4 Mg) 1 tab Q5M PRN SL .CHEST PAIN; Start 07/18/18 at 19:00 Acetaminophen (Tylenol Tab) 650 mg Q6H PRN PO .PAIN 1-3 OR TEMP; Start 07/18/18 at 19:00 Docusate Sodium (Colace) 100 mg Q12H PRN PO .CONSTIPATION; Start 07/18/18 at 19:00 Magnesium Hydroxide (Milk Of Mag) 30 ml DAILY PRN PO .CONSTIPATION; Start 07/18/18 at 19:00 Pantoprazole (Protonix Tab) 40 mg DAILY@06 PO Last administered on 07/19/18at 06:17; Admin Dose 40 MG; Start 07/19/18 at 06:00 Amiodarone HCl (Cordarone) 200 mg DAILY PO Last administered on 07/19/18at 09:18; Admin Dose 200 MG; Start 07/19/18 at 09:00 Furosemide (Lasix) 20 mg BID DIURETICS IV Last administered on 07/18/18at 20:29; Admin Dose 20 MG; Start 07/18/18 at 19:30 Albuterol (Proventil 0.083% (Neb)) 2.5 mg Q2H RESP THERAPY PRN HHN SHORTNESS OF BREATH; Start 07/18/18 at 19:30 THU THORPE NP Jul 19, 2018 14:52
[2018-07-19] MEDS ORDERED: POTASSIUM CHLORIDE (SR) 20 MEQ TAB PO STA (15:13)
[2018-07-19] MEDS ORDERED: MAGNESIUM SULFATE 2 GM/50 ML 50 ML IVPB ONE (15:30)
[2018-07-19] MEDS ORDERED: POTASSIUM CHLORIDE 20 MEQ POWDER FOR ORAL SOLN PO ONE (16:30)
[2018-07-20] VITALS (12 sets, daily range): BP systolic 86–102; BP diastolic 50–64; PULSE 82–119; RESP 17–20
[2018-07-20] MEDS: PANTOPRAZOLE (EC) 40 MG TAB PO SCH (05:57)
[2018-07-20] MEDS: FUROSEMIDE 20 MG INJ IV SCH ×2 (05:58→17:27)
[2018-07-20] MEDS: AMIODARONE 200 MG TAB PO SCH (08:38)
[2018-07-20] MEDS: FLUTICASONE/VILANTEROL 100-25 INH SCH (08:38)
[2018-07-20] MEDS: METOPROLOL 25 MG TAB PO SCH ×2 (08:38→21:17)
[2018-07-20] MEDS: SPIRONOLACTONE 25 MG TAB PO SCH (08:38)
--- NOTE | 2018-07-20 14:55 | PN ---
Date/Time of Note Date/Time of Note DATE: 07/20/18 TIME: 14:54 Assessment/Plan VTE Prophylaxis Risk score (from [facility])>0 risk: 5 [place] [facility] [place] Pharmacological prophylaxis: NA/contraindicated Pharm contraindication: other (Recent history of GI bleed.) Lines/Catheters IV Catheter Type (from [facility]): Saline Lock Urinary Cath still in place: No Assessment/Plan Hospital Course SUBJECTIVE: Denies any dyspnea. Remains in sinus rhythm. OBJECTIVE: Physical Exam General: Adequately build 63 year-old female lying in bed in no apparent di stress. HEENT: Normocephalic, atraumatic. Eyes: Anicteric sclerae, conjunctivae clear. ENT: Nasal septum midline, oral mucosa moist. Neck supple, JVD noticed. Respiratory: Bilaterally diminished breath sounds. No use of accessory muscles of respiration. No adventitious breath sounds. Cardiovascular: S1, S2 heard. Regular rate and rhythm. Abdomen: Soft, nontender, and nondistended. Bowel sounds positive in all 4 quadrants. Genitourinary: Deferred. Extremities: No cyanosis, no clubbing. Bilateral lower extremity 2+ edema. Peripheral pulses palpable. Neurologic: Cranial nerves II through XII grossly intact. The patient is awake, alert, and oriented. Skin: Normal skin turgor. No skin rashes. Labs & Vitals per chart ASSESSMENT & PLAN 63-year-old female with comorbidities including hypertension, pulmonary hypertension, diastolic heart failure, COPD, atrial fibrillation, and ASD repair in the remote past. The patient went to an outside facility because of bilater al lower extremity edema. Over there, the patient was noticed to atrial fibrillation with RVR. Therefore, the patient was given a dose of Cardizem and the patient was transferred to [facility] for further evaluation because of insurance reasons. 1. Atrial fibrillation with rapid ventricular response. -Currently in sinus rhythm. -Continue beta-blockers and amiodarone. -Anticoagulation on hold because of recent GI bleed. 2. Acute on chronic diastolic heart failure exacerbation -Continue diuresis. 3. COPD. -Continue PRN inhaled bronchodilators (LESLIE) and scheduled LABA. 4. Pulmonary hypertension. -Continue supplemental oxygen. 5. History of cirrhosis -On Aldactone. -Refused gastroenterology intervention during last admission. 6. Fluids, electrolytes, and nutrition. -Low-cholesterol diet. 7. DVT prophylaxis -Bilateral SCDs. 8. Plan for -Continue IV diuresis -Plan is to discharge patient home once clinically stable. The patient was seen in collaboration with Dr. Castillo. Result Diagram: 07/20/18 0749 07/20/18 0749 Results 24hrs Laboratory Tests Test 07/20/18 07:49 White Blood Count 7.6 Red Blood Count 2.74 L Hemoglobin 8.5 L Hematocrit 25.1 L Mean Corpuscular Volume 91.6 Mean Corpuscular Hemoglobin 31.0 Mean Corpuscular Hemoglobin Concent 33.9 Red Cell Distribution Width 16.9 H Platelet Count 271 Mean Platelet Volume 10.0 Immature Granulocytes % 0.400 Neutrophils % 67.4 Lymphocytes % 23.4 Monocytes % 6.9 Eosinophils % 1.6 Basophils % 0.3 Nucleated Red Blood Cells % 0.0 Immature Granulocytes # 0.030 Neutrophils # 5.1 Lymphocytes # 1.8 Monocytes # 0.5 Eosinophils # 0.1 Basophils # 0.0 Nucleated Red Blood Cells # 0.0 Sodium Level 135 Potassium Level 3.7 Chloride Level 103 Carbon Dioxide Level 27 Anion Gap 5 Blood Urea Nitrogen 7 Creatinine 0.57 Est Glomerular Filtrat Rate mL/min > 60 Glucose Level 87 Calcium Level 7.6 L Phosphorus Level 4.0 Magnesium Level 1.9 Exam/Review of Systems Exam Vitals Vital Signs Date Temp Pulse Resp B/P (MAP) Pulse Ox O2 O2 Flow FiO2 Time Delivery Rate 07/20/18 97.6 97 18 102/61 98 Room Air 12:39 (75) Intake and Output 07/19/18 07/19/18 07/20/18 1515:00 23:00 07:00 IntakeIntake Total 700 ml 400 ml BalanceBalance 700 ml 400 ml Results Results 24hrs Laboratory Tests Test 07/20/18 07:49 White Blood Count 7.6 Red Blood Count 2.74 L Hemoglobin 8.5 L Hematocrit 25.1 L Mean Corpuscular Volume 91.6 Mean Corpuscular Hemoglobin 31.0 Mean Corpuscular Hemoglobin Concent 33.9 Red Cell Distribution Width 16.9 H Platelet Count 271 Mean Platelet Volume 10.0 Immature Granulocytes % 0.400 Neutrophils % 67.4 Lymphocytes % 23.4 Monocytes % 6.9 Eosinophils % 1.6 Basophils % 0.3 Nucleated Red Blood Cells % 0.0 Immature Granulocytes # 0.030 Neutrophils # 5.1 Lymphocytes # 1.8 Monocytes # 0.5 Eosinophils # 0.1 Basophils # 0.0 Nucleated Red Blood Cells # 0.0 Sodium Level 135 Potassium Level 3.7 Chloride Level 103 Carbon Dioxide Level 27 Anion Gap 5 Blood Urea Nitrogen 7 Creatinine 0.57 Est Glomerular Filtrat Rate mL/min > 60 Glucose Level 87 Calcium Level 7.6 L Phosphorus Level 4.0 Magnesium Level 1.9 Medications Medication Current Medications Metoprolol Tartrate (Lopressor) 25 mg BID PO Last administered on 07/19/18at 20:25; Admin Dose 25 MG; Start 07/18/18 at 21:00 Spironolactone (Aldactone) 12.5 mg DAILY PO Last administered on 07/20/18at 08:38; Admin Dose 12.5 MG; Start 07/19/18 at 09:00 Fluticasone/ Vilanterol (Breo Ellipta 100-25 Mcg Inh) 1 inh DAILY INH Last administered on 07/20/18at 08:38; Admin Dose 1 INH; Start 07/19/18 at 01:30 IV Flush (NS 3 ml) 3 ml PER PROTOCOL IV ; Start 07/18/18 at 19:00 Ondansetron HCl (Zofran Inj) 4 mg Q6H PRN IV NAUSEA/VOMITING; Start 07/18/18 at 19:00 Nitroglycerin (Nitroglycerin (Sl Tab) 0.4 Mg) 1 tab Q5M PRN SL .CHEST PAIN; Start 07/18/18 at 19:00 Acetaminophen (Tylenol Tab) 650 mg Q6H PRN PO .PAIN 1-3 OR TEMP; Start 07/18/18 at 19:00 Docusate Sodium (Colace) 100 mg Q12H PRN PO .CONSTIPATION; Start 07/18/18 at 19:00 Magnesium Hydroxide (Milk Of Mag) 30 ml DAILY PRN PO .CONSTIPATION; Start 07/18/18 at 19:00 Pantoprazole (Protonix Tab) 40 mg DAILY@06 PO Last administered on 07/20/18at 05:57; Admin Dose 40 MG; Start 07/19/18 at 06:00 Amiodarone HCl (Cordarone) 200 mg DAILY PO Last administered on 07/19/18at 09:18; Admin Dose 200 MG; Start 07/19/18 at 09:00 Furosemide (Lasix) 20 mg BID DIURETICS IV Last administered on 07/19/18at 17:52; Admin Dose 20 MG; Start 07/18/18 at 19:30 Albuterol (Proventil 0.083% (Neb)) 2.5 mg Q2H RESP THERAPY PRN HHN SHORTNESS OF BREATH; Start 07/18/18 at 19:30 THU THORPE NP Jul 20, 2018 14:55
[2018-07-21] VITALS (15 sets, daily range): BP systolic 83–97; BP diastolic 52–67; PULSE 72–98; RESP 16–18
[2018-07-21] MEDS: PANTOPRAZOLE (EC) 40 MG TAB PO SCH (05:55)
[2018-07-21] MEDS: FUROSEMIDE 20 MG INJ IV SCH (05:56)
[2018-07-21] MEDS: FLUTICASONE/VILANTEROL 100-25 INH SCH (09:18)
[2018-07-21] MEDS: SPIRONOLACTONE 25 MG TAB PO SCH (09:20)
[2018-07-21] MEDS: METOPROLOL 25 MG TAB PO SCH ×2 (09:20→20:10)
[2018-07-21] MEDS: AMIODARONE 200 MG TAB PO SCH (09:21)
[2018-07-21] MEDS ORDERED: POTASSIUM CHLORIDE (SR) 20 MEQ TAB PO STA ×2 (14:44→15:17)
--- NOTE | 2018-07-21 15:23 | PN ---
Date/Time of Note Date/Time of Note DATE: 07/21/18 TIME: 15:19 Assessment/Plan VTE Prophylaxis Risk score (from [facility] [place])>0 risk: 3 SCD applied (from [facility] [place]): No SCD contraindicated: patient refusal Pharmacological prophylaxis: NA/contraindicated Pharm contraindication: other (Histroy of GI bleed.) Lines/Catheters IV [facility] Type (from [facility]): Saline Lock Urinary Cath still in place: No Assessment/Plan Hospital Course SUBJECTIVE: Denies any dyspnea. Remains in sinus rhythm. Had a hypotensive episode last night. OBJECTIVE: Physical Exam General: Adequately build 63 year-old female lying in bed in no apparent distress. HEENT: Normocephalic, atraumatic. Eyes: Anicteric sclerae, conjunctivae clear. ENT: Nasal septum midline, oral mucosa moist. Neck supple, JVD noticed. Respiratory: Bilaterally diminished breath sounds. No use of accessory muscles of respiration. No adventitious breath sounds. Cardiovascular: S1, S2 heard. Regular rate and rhythm. Abdomen: Soft, nontender, and nondistended. Bowel sounds positive in all 4 quadrants. Genitourinary: Deferred. Extremities: No cyanosis, no clubbing. Bilateral lower extremity 2+ edema. Peripheral pulses palpable. Neurologic: Cranial nerves II through XII grossly intact. The patient is awake, alert, and oriented. Skin: Normal skin turgor. No skin rashes. Labs & Vitals per chart ASSESSMENT & PLAN 63-year-old female with comorbidities including hypertension, pulmonary hypertension, diastolic heart failure, COPD, atrial fibrillation, and ASD repair in the remote past. The patient went to an outside facility because of bilateral lower extremity edema. Over there, the patient was noticed to atrial fibrillation with RVR. Therefore, the patient was given a dose of Cardizem and the patient was transferred to [facility] for further evaluation because of insurance reasons. 1. Atrial fibrillation with rapid ventricular response. -Currently in sinus rhythm. -Continue beta-blockers and amiodarone. -Anticoagulation on hold because of recent GI bleed. 2. Acute on chronic diastolic heart failure exacerbation -Continue diuresis. 3. COPD. -Continue PRN inhaled bronchodilators (LESLIE) and scheduled LABA. 4. Pulmonary hypertension. -Continue supplemental oxygen. 5. History of cirrhosis -On Aldactone. -Refused gastroenterology intervention during last admission. 6. Fluids, electrolytes, and nutrition. -Low-cholesterol diet. 7. DVT prophylaxis -Bilateral SCDs. 8. Plan. -DC IV diuresis. -Decrease the dose of beta-blockers and Lasix (oral). -Plan is to discharge patient home once clinically stable. The patient was seen in collaboration with Dr. Castillo. Result Diagram: 07/21/1839 07/21/18 0639 Results 24hrs Laboratory Tests Test 07/21/18 06:39 White Blood Count 6.4 Red Blood Count 2.62 L Hemoglobin 8.0 L Hematocrit 24.0 L Mean Corpuscular Volume 91.6 Mean Corpuscular Hemoglobin 30.5 Mean Corpuscular Hemoglobin Concent 33.3 Red Cell Distribution Width 17.0 H Platelet Count 248 Mean Platelet Volume 10.0 Immature Granulocytes % 0.500 H Neutrophils % 61.3 Lymphocytes % 27.4 Monocytes % 8.6 Eosinophils % 1.7 Basophils % 0.5 Nucleated Red Blood Cells % 0.0 Immature Granulocytes # 0.030 Neutrophils # 3.9 Lymphocytes # 1.8 Monocytes # 0.6 Eosinophils # 0.1 Basophils # 0.0 Nucleated Red Blood Cells # 0.0 Sodium Level 134 L Potassium Level 3.3 L Chloride Level 101 Carbon Dioxide Level 27 Anion Gap 6 Blood Urea Nitrogen 6 L Creatinine 0.61 Est Glomerular Filtrat Rate mL/min > 60 Glucose Level 87 Calcium Level 7.6 L Phosphorus Level 3.8 Magnesium Level 1.7 Exam/Review of Systems Exam Vitals Vital Signs Date Temp Pulse Resp B/P (MAP) Pulse Ox O2 O2 Flow FiO2 Time Delivery Rate 07/21/18 97.4 84 18 97/56 (70) 98 Room Air 15:05 Intake and Output 07/20/18 07/20/18 07/21/18 1515:00 23:00 07:00 IntakeIntake Total 960 ml 400 ml BalanceBalance 960 ml 400 ml Results Results 24hrs Laboratory Tests Test 07/21/18 06:39 White Blood Count 6.4 Red Blood Count 2.62 L Hemoglobin 8.0 L Hematocrit 24.0 L Mean Corpuscular Volume 91.6 Mean Corpuscular Hemoglobin 30.5 Mean Corpuscular Hemoglobin Concent 33.3 Red Cell Distribution Width 17.0 H Platelet Count 248 Mean Platelet Volume 10.0 Immature Granulocytes % 0.500 H Neutrophils % 61.3 Lymphocytes % 27.4 Monocytes % 8.6 Eosinophils % 1.7 Basophils % 0.5 Nucleated Red Blood Cells % 0.0 Immature Granulocytes # 0.030 Neutrophils # 3.9 Lymphocytes # 1.8 Monocytes # 0.6 Eosinophils # 0.1 Basophils # 0.0 Nucleated Red Blood Cells # 0.0 Sodium Level 134 L Potassium Level 3.3 L Chloride Level 101 Carbon Dioxide Level 27 Anion Gap 6 Blood Urea Nitrogen 6 L Creatinine 0.61 Est Glomerular Filtrat Rate mL/min > 60 Glucose Level 87 Calcium Level 7.6 L Phosphorus Level 3.8 Magnesium Level 1.7 Medications Medication Current Medications Metoprolol Tartrate (Lopressor) 25 mg BID PO Last administered on 07/21/18at 09:20; Admin Dose 25 MG; Start 07/18/18 at 21:00 Spironolactone (Aldactone) 12.5 mg DAILY PO Last administered on 07/21/18at 09:20; Admin Dose 12.5 MG; Start 07/19/18 at 09:00 Fluticasone/ Vilanterol (Breo Ellipta 100-25 Mcg Inh) 1 inh DAILY INH Last administered on 07/21/18at 09:18; Admin Dose 1 INH; Start 07/19/18 at 01:30 IV Flush (NS 3 ml) 3 ml PER PROTOCOL IV ; Start 07/18/18 at 19:00 Ondansetron HCl (Zofran Inj) 4 mg Q6H PRN IV NAUSEA/VOMITING; Start 07/18/18 at 19:00 Nitroglycerin (Nitroglycerin (Sl Tab) 0.4 Mg) 1 tab Q5M PRN SL .CHEST PAIN; Start 07/18/18 at 19:00 Acetaminophen (Tylenol Tab) 650 mg Q6H PRN PO .PAIN 1-3 OR TEMP; Start 07/18/18 at 19:00 Docusate Sodium (Colace) 100 mg Q12H PRN PO .CONSTIPATION; Start 07/18/18 at 19:00 Magnesium Hydroxide (Milk Of Mag) 30 ml DAILY PRN PO .CONSTIPATION; Start 07/18/18 at 19:00 Pantoprazole (Protonix Tab) 40 mg DAILY@06 PO Last administered on 07/21/18at 05:55; Admin Dose 40 MG; Start 07/19/18 at 06:00 Amiodarone HCl (Cordarone) 200 mg DAILY PO Last administered on 07/21/18at 09:21; Admin Dose 200 MG; Start 07/19/18 at 09:00 Furosemide (Lasix) 20 mg BID DIURETICS IV Last administered on 07/20/18at 17:27; Admin Dose 20 MG; Start 07/18/18 at 19:30 Albuterol (Proventil 0.083% (Neb)) 2.5 mg Q2H RESP THERAPY PRN HHN SHORTNESS OF BREATH; Start 07/18/18 at 19:30 Magnesium Chloride (Mag 64) 128 mg ONCE ONCE PO ; Start 07/21/18 at 16:30; Stop 07/21/18 at 16:31 THU THORPE NP Jul 21, 2018 15:23
[2018-07-21] MEDS ORDERED: POTASSIUM CHLORIDE 20 MEQ POWDER FOR ORAL SOLN PO SCH (15:32)
[2018-07-21] MEDS ORDERED: MAGNESIUM CHLORIDE (SR) 64 MG TAB PO ONE (16:30)
[2018-07-22] VITALS (9 sets, daily range): BP systolic 91–97; BP diastolic 54–66; PULSE 78–110; RESP 18
[2018-07-22] MEDS: PANTOPRAZOLE (EC) 40 MG TAB PO SCH (06:15)
[2018-07-22] MEDS: FLUTICASONE/VILANTEROL 100-25 INH SCH (08:43)
[2018-07-22] MEDS: METOPROLOL 25 MG TAB PO SCH (08:44)
[2018-07-22] MEDS: SPIRONOLACTONE 25 MG TAB PO SCH (08:45)
[2018-07-22] MEDS: AMIODARONE 200 MG TAB PO SCH (08:45)
[2018-07-22] MEDS ORDERED: FUROSEMIDE 20 MG TAB PO SCH (09:00)
[2018-07-22] MEDS ORDERED: METO-448 PO (11:31)
[2018-07-22] MEDS ORDERED: AMIO200T4 PO (11:31)
--- NOTE | 2018-07-22 11:46 | PDOCDIS ---
Discharge Instructions CONDITION [id number] Patient Condition: [id number] Stable HOME CARE INSTRUCTIONS: [id number] Diet Instructions: [id number] Low Fat /Cholesterol FOLLOW UP/APPOINTMENTS Follow-up Plan Jean Claude Ramirez MD Specialty: Internal Medicine Office Address: [address] [place], [place] [id number] Office OTHER ORDERS: Other Orders: 1. Take medications as per prescription. 2. Take a low-cholesterol, low-sodium diet. 3. Follow-up with your primary care physician in 2 weeks. If you do not have a primary care physician, please call Dr. Jean Claude Ramirez's office. 4. Resume activities as tolerated. 5. Please go to the nearest emergency room if you have any chest pain, palpitations, breath, or any other unusual signs/symptoms. THU THORPE NP Jul 22, 2018 11:46
--- NOTE | 2018-07-22 11:49 | DS ---
Date/Time of Note Date/Time of Note DATE: 07/22/18 TIME: 11:48 Discharge Summary Admission/Discharge Info Admit Date/Time Jul 18, 2018 at 17:10 Discharge Date/Time Discharge Diagnosis 1. Atrial fibrillation with rapid ventricular response. 2. Acute on chronic diastolic heart failure exacerbation 3. COPD. 4. Pulmonary hypertension. 5. History of cirrhosis. Patient Condition: Stable Hx of Present Illness This is a 63-year-old female with comorbidities including hypertension, pulmonary hypertension, diastolic heart failure, COPD, atrial fibrillation, and ASD repair in the remote past. The patient went to an outside facility because of bilateral lower extremity edema. Over there, the patient was noticed to atrial fibrillation with RVR. Therefore, the patient was given a dose of Cardizem and the patient was transferred to [facility] for further evaluation because of insurance reasons. Hospital Course The patient was admitted to inpatient setting. The patient was converted to sinus rhythm. The patient was continued on beta-blockers and amiodarone. The patient was previously taken off anticoagulation because of GI bleed. Therefore, the patient was not resumed on any anticoagulation. The patient had evidence of acute on chronic diastolic heart failure. The patient was maintained on IV diuresis. Once the patient's heart failure improved, the diuretic therapy was switched to oral. The patient also has a history of COPD. The patient was maintained on LESLIE and LABA. The patient has a history of pulmonary hypertension. The patient was maintained on supplemental oxygen. The patient has underlying cirrhosis. The patient was maintained on Aldactone. Of note, the patient refused gastroenterology intervention during last admission. The patient is very noncompliant with her medications and is unclear to what extent the patient takes her medications on a regular basis. Therefore, the patient's medications will be filled out before the patient is discharged. The patient had a stable hospital course. The patient was evaluated by PT and she would benefit from short term SNF placement. The patient is stable suyapa discharged to a SNF. Discharge Instructions 1. Take medications as per prescription. 2. Take a low-cholesterol, low-sodium diet. 3. Follow-up with your primary care physician in 2 weeks. If you do not have a primary care physician, please call Dr. Jean Claude Ramirez's office. 4. Resume activities as tolerated. 5. Please go to the nearest emergency room if you have any chest pain, palpitations, breath, or any other unusual signs/symptoms. The patient verbalized understanding of her discharge instructions The patient was seen in collaboration with Dr. Castillo. Home Meds Active Scripts Amiodarone Hcl* (Amiodarone Hcl*) 200 Mg Tablet, 200 MG PO DAILY, #30 TAB Prov:THU THORPE FOCUS PULLER 07/22/18 Metoprolol Tartrate* (Lopressor*) 25 Mg Tab, 12.5 MG PO BID, #30 TAB Prov:THU THORPE FOCUS PULLER 07/22/18 Furosemide (Lasix) 20 Mg Tab, 20 MG PO DAILY for 30 Days, #30 TAB 3 Refills Prov:ISATU ARDON 07/15/18 Spironolactone* (Aldactone*) 25 Mg Tablet, 12.5 MG PO DAILY for 30 Days, #15 TAB 3 Refills Prov:ISATU ARDON 07/15/18 Salmeterol Xinaf/Fluticasone* (Advair*) 250-50 Diskus Inhaler, 1 INH INHALATION BID for 30 Days, #1 INHALER 3 Refills Prov:ISATU ARDON 07/15/18 Albuterol Sulfate* (Proair HFA*) 8.5 Gm Hfa.aer.ad, 2 PUFF INH Q4 PRN for WHEEZING, #1 INHALER 3 Refills Prov:ISATU ARDON 07/15/18 Discontinued Scripts Metoprolol Tartrate* (Lopressor*) 25 Mg Tab, 25 MG PO BID for 30 Days, #60 TAB 3 Refills Prov:ISATU ARDON 07/15/18 Follow-up Plan Jean Claude Ramirez MD Specialty: Internal Medicine Office Address: [address] [place] [address] Office Primary Care Provider Not On Staff Doctor Time spent on discharge: > 30 minutes Pending Labs Laboratory Tests Test 07/22/18 07:36 White Blood Count 6.9 10^3/ul (4.8-10.8) Red Blood Count 2.84 10^6/ul (4.20-5.40) Hemoglobin 8.6 g/dl (12.0-16.0) Hematocrit 25.8 % (37.0-47.0) Mean Corpuscular Volume 90.8 fl (82.0-101.0) Mean Corpuscular Hemoglobin 30.3 pg (29.0-33.0) Mean Corpuscular Hemoglobin Concent 33.3 g/dl (32.0-37.0) Red Cell Distribution Width 16.9 % (11.5-14.5) Platelet Count 249 10^3/UL (140-415) Mean Platelet Volume 9.6 fl (7.4-10.4) Immature Granulocytes % 0.300 % (0.001-0.429) Neutrophils % 62.3 % (39.0-77.0) Lymphocytes % 27.5 % (15.0-51.0) Monocytes % 8.0 % (0.0-11.0) Eosinophils % 1.5 % (0.0-7.0) Basophils % 0.4 % (0.0-2.0) Nucleated Red Blood Cells % 0.0 /100WBC (0.0-0.0) Immature Granulocytes # 0.020 10^3/ul (0.0-0.031) Neutrophils # 4.3 10^3/ul (1.6-7.5) Lymphocytes # 1.9 10^3/ul (0.8-2.9) Monocytes # 0.6 10^3/ul (0.3-0.9) Eosinophils # 0.1 10^3/ul (0.0-0.5) Basophils # 0.0 10^3/ul (0.0-0.1) Nucleated Red Blood Cells # 0.0 10^3/ul (0.0-0.0) Sodium Level 134 mmol/L (135-144) Potassium Level 3.8 mmol/L (3.5-5.1) Chloride Level 102 mmol/L (97-110) Carbon Dioxide Level 26 mmol/L (21-31) Anion Gap 6 (5-13) Blood Urea Nitrogen 6 mg/dl (7-20) Creatinine 0.59 mg/dl (0.44-1.00) Est Glomerular Filtrat Rate mL/min > 60 mL/min (>60) Glucose Level 90 mg/dl (70-220) Calcium Level 7.9 mg/dl (8.4-10.2) Phosphorus Level 3.5 mg/dl (2.5-4.9) Magnesium Level 1.8 mg/dl (1.7-2.5) THU THORPE NP Jul 22, 2018 11:49
== END 2018-07-22 18:40 | DRG 308 ==
LOC: TEL 17:10
PROVIDERS: ADMIT Internal Medicine; ATTEND Internal Medicine
DX: I48.0 Paroxysmal atrial fibrillation (principal); I50.33 Acute on chronic diastolic (congestive) heart failure; J44.9 Chronic obstructive pulmonary disease, unspecified; I27.20 Pulmonary hypertension, unspecified; Z91.14 Patient's other noncompliance with medication regimen
CPT/HCPCS: 80048; 80053; 83036; 83735; 84100; 84443; 85025; 87081; 97110; 97116; 97161; 97166; J1940; J3475

== ENCOUNTER 2018-09-08 11:05 | Inpatient (IN) | payer OTHER ==
[~2018-09-08] VITALS: Ht 167.6 cm; Wt 68.4 kg
[~2018-09-08 11:05] MED LIST changes: +AMIO200T4 PO
--- NOTE | 2018-09-08 11:18 | ERD ---
ER Documentation Chief Complaint Chief Complaint FROM [facility]. ADMIT TO [facility]. DX COPD PNA ACCEPTING MD DR NORWOOD HPI This is a 63-year-old female that presented to the emergency department brought in by EMS as a direct admit [facility] she was [facility]itated to [facility]. The patient had been seen and evaluated in the emergency room for COPD and pneumonia. She had a cough for the past 48 hours. She did not have any chest pain. The patient had a chest radiograph that indicated the patient had a left lower lobe infiltrate. She is had a status post thoracotomy. She had a PICC line that was placed. The patient's lactate was 1.1 and therefore the patient is not septic. Upon arrival the patient is not complaining of any difficulty breathing. ROS All systems reviewed and are negative except as per history of present illness. Medications Home Meds Active Scripts Amiodarone Hcl* (Amiodarone Hcl*) 200 Mg Tablet, 200 MG PO DAILY, #30 TAB Prov:THU THORPE NP 07/22/18 Metoprolol Tartrate* (Lopressor*) 25 Mg Tab, 12.5 MG PO BID, #30 TAB Prov:THU THORPE NP 07/22/18 Furosemide (Lasix) 20 Mg Tab, 20 MG PO DAILY for 30 Days, #30 TAB 3 Refills Prov:ISATU NORWOOD 07/15/18 Spironolactone* (Aldactone*) 25 Mg Tablet, 12.5 MG PO DAILY for 30 Days, #15 TAB 3 Refills Prov:ISATU NORWOOD 07/15/18 Salmeterol Xinaf/Fluticasone* (Advair*) 250-50 Diskus Inhaler, 1 INH INHALATION BID for 30 Days, #1 INHALER 3 Refills Prov:ISATU NORWOOD 07/15/18 Albuterol Sulfate* (Proair HFA*) 8.5 Gm Hfa.aer.ad, 2 PUFF INH Q4 PRN for WHEEZING, #1 INHALER 3 Refills Prov:ISATU NORWOOD 07/15/18 Allergies Allergies: Coded Allergies: No Known Allergy (Unverified , 12/24/17) PMhx/Soc History of Surgery: Yes (CABG) Anesthesia Reaction: No Hx Neurological Disorder: No Hx Respiratory Disorders: No Hx Cardiac Disorders: Yes (atrial septal defect, CHF, Afib) Hx Psychiatric Problems: No Hx Miscellaneous Medical Probl: Yes (COPD, HTN , H.OF CIRRHOSIS, CHF, A-FIB ,RECEBT GI-BLEED .) Hx Alcohol Use: No Hx Substance Use: No Hx Tobacco Use: No Physical Exam Physical Exam Constitutional:Well-developed. Well-nourished. HEENT:Normocephalic. Atraumatic.Pupils were equal round reactive to light. Moist mucous membranes.No tonsillar exudates. Neck: No nuchal rigidity. No lymphadenopathy. No posterior cervical spine tenderness or step-offs. Respiratory: Not using accessory muscles of respiration. Decreased breath sounds in the left lower lobe. Right lung was clear to auscultation. No rhonchi. No rales. No wheezing. Cardiovascular: Irregular regular rhythm.No murmurs. No rubs were appreciated.S1, S2 normal. Distal pulses are palpable 2+ bilaterally. GI: Abdomen was soft. Nontender. Non Distended. No pulsatile abdominal masses or bruits. No rebound. No guarding. Bowel sounds were present and normal. Muscle skeletal: 2+ pitting edema in the bilateral lower extremities. Patient was unable to lift the bilateral lower extremities against gravity. Skin: No petechia, no purpura. No lesions on the palms or the soles of the feet. No maculopapular rash. NEURO: Patient was alert, awake, orientated x3.gait not observed as patient cannot ambulate Procedures/MDM This 63-year-old female that has already been seen and evaluated at [facility] and treated for pneumonia. The patient will be admitted if there is condition of the care of Dr. Norwood. I reordered ancillary laboratory work but the patient had no difficulty breathing at this time. Treatment placed on a industrial relations worker with continuous pulse oximetry. She will be going to the telemetry service. No beds were available in the hospital therefore she came through the emergency room department. Departure Diagnosis: Primary Impression: Pneumonia Pneumonia type: due to unspecified organism Laterality: left Lung location: lower lobe of lung Qualified Codes: J18.1 - Lobar pneumonia, unspecified organism Additional Impression: COPD exacerbation Condition: Serious ANTONIO MENDIETA MD Sep 08, 2018 11:18
[2018-09-08] MEDS ORDERED: DIGO250T PO (13:05)
[2018-09-08] MEDS ORDERED: LACT10SO5 PO (13:05)
[2018-09-08] MEDS ORDERED: ALBU2.5V3 NEB (13:08)
[2018-09-08] MEDS ORDERED: AMIO100T4 PO (13:09)
[2018-09-08] MEDS ORDERED: ATEN-51 PO (13:09)
[2018-09-08] MEDS ORDERED: SPIR50TA PO (13:09)
[2018-09-08] MEDS ORDERED: IPRA15SP NS (13:11)
[2018-09-08] MEDS ORDERED: ATRO INHALATION (13:11)
[2018-09-08] MEDS ORDERED: FURO40TA4 PO (13:15)
[2018-09-08] MEDS ORDERED: LACT20SO2 PO (13:15)
[2018-09-08] MEDS ORDERED: LEVO50TA71 PO (13:15)
[2018-09-08] MEDS ORDERED: PANT40TA3 PO (13:16)
[2018-09-08] MEDS ORDERED: ONDANSETRON 4 MG INJ IV PRN ×2 (13:30→15:00)
[2018-09-08] MEDS ORDERED: ACETAMINOPHEN 325 MG TAB PO PRN ×2 (13:30→15:00)
[2018-09-08] MEDS ORDERED: NACL 0.9% 3 ML SYG IV SCH (15:00)
[2018-09-08] MEDS ORDERED: VANCOMYCIN IV PER PHARMACY XX SCH (15:00)
[2018-09-08] MEDS ORDERED: METHYLPREDNISOLONE 40 MG INJ IV ONE (15:00)
--- NOTE | 2018-09-08 15:14 | HP ---
Date/Time of Note Date/Time of Note DATE: 09/08/18 TIME: 14:59 Assessment/Plan VTE Prophylaxis SCD applied (from Ns): No SCD contraindicated: other (SWELLING) Pharmacological prophylaxis: LMWH Assessment/Plan Hospital Course SUBJECTIVE: Seen and evaluated patient in ER room 9, having mild wheezing and nonproductive cough. Having worsening swelling on bilateral lower extremities. OBJECTIVE: Vital signs-see below PHYSICAL EXAM: Constitutional: Adequately built,not in acute distress. HEENT: Head atraumatic and normocephalic. Eyes: Extraocular muscles intact. Anicteric sclerae. Pupils equal bilaterally, reactive to light. NECK: Supple without lymph node. CHEST: +expiratory wheezing JUANITO. Diminished bibasilar. HEART: S1, S2. Regular rate and rhythm. ABDOMEN: Protuberant. Soft/non tender with no rebound tenderness. Bowel sounds were present. EXTREMITIES: Anasarca/ 3+ pitting edema Bilateral LEs.No cyanosis, clubbing NEUROLOGIC: Alert and oriented x3. No focal deficit. No sensory deficit. PSYCHOSOCIAL: No signs of depression. INTEGUMENTARY: Anasarca. No open wounds. ASSESSMENT AND PLAN: 63-year-old female with history of diastolic heart failure,PAF,COPD,ASD repair, liver cirrhosis, here with worsening cough, shortness of breath, wheezing and bilateral lower extremity swelling.... Acute on chronic diastolic congestive heart failure. -Latest echo in June 2018 with preserved ejection fraction, defer repeat for now. -IV Lasix -Resume beta-blockers -Cardiology consultation -Serial troponin, EKG,BNP Healthcare acquired pneumonia -Cefepime/vancomycin -Atjjpe-wtt-umlac/as needed bronchodilators -Respiratory cultures if available -Follow-up chest x-ray COPD exacerbation -LESLIE, LABA, 1 dose IV steroid Anasarca with underlying liver disease and heart failure -Diuretic therapy. Liver cirrhosis with ascites -Stable LFTs. Will obtain abdominal ultrasound to rule out ascites requiring paracentesis -Resume lactulose, Aldactone and Lasix therapy. History of paroxysmal atrial fibrillation -Currently in sinus rhythm. Resume amiodarone and digoxin ASD status post surgical repair -No acute issues Pulmonary hypertension -No acute issues. Chronic anemia -Stable H&H Mild hypokalemia -Monitor and defer treatment for now as patient is on Aldactone. DVT prophylaxis: Lovenox PUD prophylaxis: PPI CODE STATUS: DNR/DNI Diet: Low-cholesterol/2 g sodium diet. Rest of the management depend on hospital course. Approximately 60 m spent on this history and physical. Patient was seen in collaboration with Dr. Norwood Result Diagram: 09/08/18 1212 09/08/18 1212 Results 24hrs Laboratory Tests Test 09/08/18 12:12 White Blood Count 5.1 # Red Blood Count 2.84 L Hemoglobin 9.0 L Hematocrit 27.8 L Mean Corpuscular Volume 97.9 Mean Corpuscular Hemoglobin 31.7 Mean Corpuscular Hemoglobin Concent 32.4 Red Cell Distribution Width 22.1 #H Platelet Count 220 Mean Platelet Volume 10.4 Immature Granulocytes % 0.600 H Neutrophils % Segmented Neutrophils % (Manual) 96 H Band Neutrophils % (Manual) 1 Lymphocytes % Lymphocytes % (Manual) 1 L Monocytes % Eosinophils % Basophils % Myelocytes % (Manual) 2 H Nucleated Red Blood Cells % 0.0 Immature Granulocytes # 0.030 Neutrophils # Neutrophils # (Manual) 4.9 Band Neutrophils # 0.0 Lymphocytes (Manual) 0.0 L Lymphocytes # Monocytes # Eosinophils # Basophils # Myelocytes # 0.1 H Nucleated Red Blood Cells # Platelet Estimate NORMAL Giant Platelets 9 H Polychromasia 2+ Anisocytosis 1+ Macrocytosis 1+ Sodium Level 139 Potassium Level 3.4 L Chloride Level 110 Carbon Dioxide Level 20 L Anion Gap 9 Blood Urea Nitrogen 9 Creatinine 0.64 Est Glomerular Filtrat Rate mL/min > 60 Glucose Level 134 Calcium Level 8.8 Total Bilirubin 0.0 L Direct Bilirubin 0.00 Indirect Bilirubin 0.0 Aspartate Amino Transf (AST/SGOT) 22 Alanine Aminotransferase (ALT/SGPT) 23 Alkaline Phosphatase 90 Total Protein 5.9 L Albumin 2.5 L Globulin 3.40 H Albumin/Globulin Ratio 0.73 HPI/ROS Admit Date/Time Admit Date/Time Hx of Present Illness This is a 63-year-old female from [facility] with multiple comorbidities including pulmonary hypertension, diastolic heart failure, chronic lower extremity edema, COPD, former smoker, atrial fibrillation, liver cirrhosis, hypertension, ASD repair, was transferred from outside hospital that she initially presented with 3-day duration of cough, difficulty breathing, worsening bilateral lower extremity pitting edema and wheezing. Patient was found to have pneumonia in the outside hospital and was treated with antibiotics and was transferred to [facility] due to insurance capitation. Patient denied chest pain, palpitation, nausea, vomiting, abdominal pain, dizziness, loss of consciousness, numbness, tingling, speech difficulties, vision changes, fever, chills, diarrhea, constipation or other constitutional symptoms.Labs showed hemoglobin 9.0, hematocrit 27.8, potassium 3.4. ROS A 12 point review of system was assessed and is negative other than what is mentioned in HPI. PMH/Family/Social Past Medical History See HPI Medications Current Medications Ondansetron HCl (Zofran Inj) 4 mg ER BRIDGE PRN IV NAUSEA/VOMITING; Start 09/08/18 at 13:30; Stop 09/09/18 at 13:29 Acetaminophen (Tylenol Tab) 650 mg ER BRIDGE PRN PO .MILD PAIN 1-3 OR TEMP; Start 09/08/18 at 13:30; Stop 09/09/18 at 13:29 Amiodarone HCl (Cordarone) 100 mg DAILY PO ; Start 09/09/18 at 09:00; Status UNV Atenolol (Tenormin) 12.5 mg BID PO ; Start 09/08/18 at 21:00; Status UNV Digoxin (Digoxin) 0.25 mg DAILY PO ; Start 09/09/18 at 09:00; Status UNV Lactulose (Enulose) 6.7 gm BID PO ; Start 09/08/18 at 21:00; Status UNV Levothyroxine Sodium (Synthroid) 50 mcg BEFORE BREAKFAST PO ; Start 09/09/18 at 07:00; Status UNV Pantoprazole (Protonix Tab) 40 mg DAILY PO ; Start 09/09/18 at 09:00 Spironolactone (Aldactone) 50 mg BID PO ; Start 09/08/18 at 21:00; Status UNV Furosemide (Lasix) 40 mg BID DIURETICS IV ; Start 09/08/18 at 18:00 Cefepime HCl 50 ml @ 100 mls/hr Q12 IVPB ; Start 09/08/18 at 21:00; Status UNV Vancomycin HCl (Vanco Iv Per Pharmacy) VANCOMYCIN PER PHARMACY PER PROTOCOL XX ; Start 09/08/18 at 15:00; Status UNV Levalbuterol (Xopenex Neb) 1.25 mg Q6H RESP THERAPY HHN ; Start 09/08/18 at 15:00 Ipratropium [place] (Atrovent 0.02% (Neb)) 0.5 mg Q6HWA RESP THERAPY HHN ; Start 09/08/18 at 20:00; Status UNV Methylprednisolone Sodium Succinate (Solu-Medrol) 40 mg ONCE ONCE IV ; Start 09/08/18 at 15:00; Stop 09/08/18 at 15:01 IV Flush (NS 3 ml) 3 ml PER PROTOCOL IV ; Start 09/08/18 at 15:00 Ondansetron HCl (Zofran Inj) 4 mg Q6H PRN IV NAUSEA/VOMITING; Start 09/08/18 at 15:00 Acetaminophen (Tylenol Tab) 650 mg Q6H PRN PO .PAIN 1-3 OR TEMP; Start 09/08/18 at 15:00 Enoxaparin Sodium (Lovenox) 40 mg DAILY SC ; Start 09/09/18 at 09:00 Uncoded Allergies: NUTS (Allergy, Intermediate, 09/08/18) Past Surgical History See HPI Past Surgical Hx: noncontributory, other Family History Significant Family History: no pertinent family hx Social History Former nicotine/EtOH abuse. Smoking Status: Never smoker Exam/Review of Systems Vital Signs Vitals Vital Signs Date Temp Pulse Resp B/P (MAP) Pulse Ox O2 O2 Flow FiO2 Time Delivery Rate 09/08/18 2.0 11:10 09/08/18 98.1 96 18 109/58 94 11:08 (75) SOPHIE PAREDES NP Sep 08, 2018 15:09
[2018-09-08] MEDS: CEFEPIME 1GM/50 ML (PMX) 50 ML IVPB SCH ×2 (16:15→22:59)
[2018-09-08] MEDS: LEVALBUTEROL (NEB) 1.25 MG/0.5 ML AMP HHN SCH ×2 (16:29→21:09)
[2018-09-08] MEDS ORDERED: VANCOMYCIN HCL 1.25 GM in SOD CHLORIDE 0.9% 250 ML IVPB SCH (16:30)
[2018-09-08 17:53] VITALS: BP 114/62; PULSE 96; RESP 18
[2018-09-08 17:57] VITALS: Ht 167.6 cm; Wt 68.4 kg
[2018-09-08 18:02] VITALS: PULSE 96
[2018-09-08] MEDS: FUROSEMIDE 40 MG INJ IV SCH (18:13)
[2018-09-08] MEDS: SPIRONOLACTONE 50 MG TAB PO SCH (18:13)
[2018-09-08 19:51] VITALS: BP 116/69; PULSE 88; RESP 17
[2018-09-08 20:06] VITALS: PULSE 91
[2018-09-08] MEDS: GUAIFENESIN/DM (SR) TAB PO SCH (20:43)
[2018-09-08] MEDS: ATENOLOL 25 MG TAB PO SCH (20:43)
[2018-09-08] MEDS: LACTULOSE 30ML CUP PO SCH (20:48)
[2018-09-08] MEDS: IPRATROPIUM (NEB) 0.5 MG/2.5 ML AMP HHN SCH (21:09)
[2018-09-09] VITALS (12 sets, daily range): BP systolic 105–124; BP diastolic 63–69; PULSE 76–91; RESP 16–18
[2018-09-09] MEDS: LEVALBUTEROL (NEB) 1.25 MG/0.5 ML AMP HHN SCH ×4 (01:07→19:30)
[2018-09-09] MEDS: VANCOMYCIN 1 GM 250 ML IVPB SCH ×2 (04:48→17:23)
[2018-09-09] MEDS: SPIRONOLACTONE 50 MG TAB PO SCH ×2 (06:17→17:55)
[2018-09-09] MEDS: LEVOTHYROXINE 50 MCG TAB PO SCH (06:17)
[2018-09-09] MEDS: FUROSEMIDE 40 MG INJ IV SCH ×2 (06:21→17:55)
--- NOTE | 2018-09-09 07:55 | CONS ---
Assessment/Plan Cardiology NYHA: III Heart Failure Type: Chronic Heart Failure Type: Diastolic Assessment/Plan Assessment/Plan (Daily) Assessment Chronic diastolic congestive heart failure-currently compensated Labile blood pressure Paroxysmal atrial fibrillation History of COPD Normal nuclear cardiac perfusion study 12/25/2017 Preserved left ventricular systolic ejection fraction echocardiogram 07/05/2018 ASD status post surgical repair Plan: fluid overload may point to pulmonary HTN secondary to COPD Diuresis will continue amiodarone will stop digoxin off therapeutic AC due to recent GIB will obtain venous duplex BLE Consultation Date/Type/Reason Admit Date/Time Date of Consultation: Sep 09, 2018 Type of Consult Cardiology Date/Time of Note DATE: 09/09/18 TIME: 07:50 Hx of Present Illness admitted with wheezing, cough, leg swelling, no chest pain, no syncope Respiratory: no complaints Cardiovascular: no complaints Gastrointestinal: no complaints Musculoskeletal: no complaints Skin: no complaints Neurologic: no complaints Past Medical History Medical History: congestive heart failure, GI bleed, hypertension Home Meds Reported Medications Pantoprazole* (Protonix*) 40 Mg Tablet.dr, 40 MG PO DAILY, TAB 09/08/18 Levothyroxine Sodium* (Levoxyl*) 50 Mcg Tablet, 50 MCG PO BEFORE BREAKFAST, #30 TAB 09/08/18 Furosemide* (Furosemide*) 40 Mg Tablet, 40 MG PO DAILY, TAB 09/08/18 Lactulose* (Lactulose*) 20 Gm/30 Ml Solution, 6.7 GM PO BID, ML 09/08/18 Ipratropium [place] (Ipratropium [place]) 15 Ml [place], 0.5 MG NS Q4 PRN for SHORTNESS OF BREATH, SPRAY 09/08/18 Atenolol* (Atenolol*) 25 Mg Tablet, 12.5 MG PO BID, #60 TAB 09/08/18 Amiodarone Hcl* (Amiodarone Hcl*) 100 Mg Tablet, 100 MG PO DAILY, #30 TAB 09/08/18 Spironolactone* (Aldactone*) 50 Mg Tablet, 50 MG PO BID, #60 TAB 09/08/18 Albuterol Sulfate* (Albuterol Sulfate* Neb) 0.083%-3 Ml Neb, 2.5 MG NEB Q4H PRN for WHEEZING AND SOB, #30 VIAL 5MG/ML 0.55 2.5MG 09/08/18 Digoxin* (Digitek*) 250 Mcg Tablet, 0.25 MG PO DAILY, TAB 09/08/18 Discontinued Reported Medications Ipratropium [place]* (Atrovent HFA*) 12.9 Gm Aer.w.adap, 2 PUFF INHALATION Q4H for SHORTNESS OF BREATH, #1 INHALER 09/08/18 Lactulose* (Lactulose*) 10 Gm/15 Ml Solution, 10 GM PO Q6, ML 09/08/18 Discontinued Scripts Amiodarone Hcl* (Amiodarone Hcl*) 200 Mg Tablet, 200 MG PO DAILY, #30 TAB Prov:THU THORPE NP 07/22/18 Metoprolol Tartrate* (Lopressor*) 25 Mg Tab, 12.5 MG PO BID, #30 TAB Prov:THU THORPE DIRECTOR OF ELEMENTARY EDUCATION 07/22/18 Furosemide (Lasix) 20 Mg Tab, 20 MG PO DAILY for 30 Days, #30 TAB 3 Refills Prov:ISATU ARDON 07/15/18 Spironolactone* (Aldactone*) 25 Mg Tablet, 12.5 MG PO DAILY for 30 Days, #15 TAB 3 Refills Prov:ISATU ARDON 07/15/18 Salmeterol Xinaf/Fluticasone* (Advair*) 250-50 Diskus Inhaler, 1 INH INHALATION BID for 30 Days, #1 INHALER 3 Refills Prov:ISATU ARDON 07/15/18 Albuterol Sulfate* (Proair HFA*) 8.5 Gm Hfa.aer.ad, 2 PUFF INH Q4 PRN for WHEEZI NG, #1 INHALER 3 Refills Prov:ISATU ARDON 07/15/18 Medications Current Medications Ondansetron HCl (Zofran Inj) 4 mg ER BRIDGE PRN IV NAUSEA/VOMITING; Start 09/08/18 at 13:30; Stop 09/09/18 at 13:29 Acetaminophen (Tylenol Tab) 650 mg ER BRIDGE PRN PO .MILD PAIN 1-3 OR TEMP; Start 09/08/18 at 13:30; Stop 09/09/18 at 13:29 Amiodarone HCl (Cordarone) 100 mg DAILY PO ; Start 09/09/18 at 09:00 Atenolol (Tenormin) 12.5 mg BID PO Last administered on 09/08/18at 20:43; Admin Dose 12.5 MG; Start 09/08/18 at 21:00 Digoxin (Digoxin) 0.25 mg DAILY@1300 PO ; Start 09/09/18 at 13:00 Lactulose (Enulose) 6.7 gm BID PO Last administered on 09/08/18at 20:48; Admin D ose 6.7 GM; Start 09/08/18 at 21:00 Levothyroxine Sodium (Synthroid) 50 mcg BEFORE BREAKFAST PO Last administered on 09/09/18at 06:17; Admin Dose 50 MCG; Start 09/09/18 at 07:00 Pantoprazole (Protonix Tab) 40 mg DAILY PO ; Start 09/09/18 at 09:00 Spironolactone (Aldactone) 50 mg BID DIURETICS PO Last administered on 09/09/18at 06:17; Admin Dose 50 MG; Start 09/08/18 at 18:00 Furosemide (Lasix) 40 mg BID DIURETICS IV Last administered on 09/09/18at 06:21; Admin Dose 40 MG; Start 09/08/18 at 18:00 Cefepime HCl 50 ml @ 100 mls/hr Q12 IVPB Last administered on 09/08/18at 22:59; Admin Dose 100 MLS/HR; Start 09/08/18 at 15:07 Vancomycin HCl (Vanco Iv Per Pharmacy) VANCOMYCIN PER PHARMACY PER PROTOCOL XX ; Start 09/08/18 at 15:00 Levalbuterol (Xopenex Neb) 1.25 mg Q6H RESP THERAPY HHN Last administered on 09/09/18at 01:07; Admin Dose 1.25 MG; Start 09/08/18 at 15:00 Ipratropium [place] (Atrovent 0.02% (Neb)) 0.5 mg Q6HWA RESP THERAPY HHN Last administered on 09/08/18at 21:09; Admin Dose 0.5 MG; Start 09/08/18 at 20:00 IV Flush (NS 3 ml) 3 ml PER PROTOCOL IV ; Start 09/08/18 at 15:00 Ondansetron HCl (Zofran Inj) 4 mg Q6H PRN IV NAUSEA/VOMITING; Start 09/08/18 at 15:00 Acetaminophen (Tylenol Tab) 650 mg Q6H PRN PO .PAIN 1-3 OR TEMP; Start 09/08/18 at 15:00 Enoxaparin Sodium (Lovenox) 40 mg DAILY SC ; Start 09/09/18 at 09:00 Tiotropium [place] (Spiriva) 1 inh DAILY INH ; Start 09/09/18 at 09:00 Levalbuterol (Xopenex Neb) 1.25 mg Q4H RESP THERAPY PRN HHN wheezinng; Start 09/08/18 at 15:30 Guaifenesin/ Dextromethorphan (Mucinex Dm) 1 tab BID PO Last administered on 09/08/18at 20:43; Admin Dose 1 TAB; Start 09/08/18 at 21:00 Vancomycin HCl 250 ml @ 125 mls/hr Q12H IVPB Last administered on 09/09/18at 04:48; Admin Dose 125 MLS/HR; Start 09/09/18 at 05:00 Allergies: Uncoded Allergies: NUTS (Allergy, Intermediate, 09/08/18) Past Surgical History Past Surgical Hx: noncontributory, other Family History Significant Family History: hypertension Social History Smoking Status: Never smoker Exam/Review of Systems Vital Signs Vitals Vital Signs Date Temp Pulse Resp B/P (MAP) Pulse Ox O2 O2 Flow FiO2 Time Delivery Rate 09/09/18 Nasal 2.0 07:22 Cannula 09/09/18 97.6 76 18 108/63 98 07:07 (78) Intake and Output 09/08/18 09/08/18 09/09/18 1515:00 23:00 07:00 IntakeIntake Total 600 ml BalanceBalance 600 ml Exam Constitutional: alert, oriented Head: normocephalic, atraumatic Neck: jvd Respiratory: clear to auscultation Cardiovascular: regular rate and rhythm Gastrointestinal: firm, hepatomegaly Musculoskeletal: muscle tone, muscle weakness Extremities: normal pulses Labs Result Diagram: 09/09/1852109/09/18521 Results 24hrs Laboratory Tests Test 09/08/18 12:12 09/08/18 20:29 09/09/18 05:22 White Blood Count 5.1 # 7.5 # Red Blood Count 2.84 L 2.76 L Hemoglobin 9.0 L 8.7 L Hematocrit 27.8 L 26.6 L Mean Corpuscular Volume 97.9 96.4 Mean Corpuscular Hemoglobin 31.7 31.5 Mean Corpuscular Hemoglobin Concent 32.4 32.7 Red Cell Distribution Width 22.1 #H 22.2 H Platelet Count 220 221 Mean Platelet Volume 10.4 10.8 H Immature Granulocytes % 0.600 H 0.400 Neutrophils % 78.6 H Segmented Neutrophils % (Manual) 96 H Band Neutrophils % (Manual) 1 Lymphocytes % 15.2 Lymphocytes % (Manual) 1 L Monocytes % 5.7 Eosinophils % 0.0 Basophils % 0.1 Myelocytes % (Manual) 2 H Nucleated Red Blood Cells % 0.0 0.0 Immature Granulocytes # 0.030 0.030 Neutrophils # 5.9 Neutrophils # (Manual) 4.9 Band Neutrophils # 0.0 Lymphocytes (Manual) 0.0 L Lymphocytes # 1.1 Monocytes # 0.4 Eosinophils # 0.0 Basophils # 0.0 Myelocytes # 0.1 H Nucleated Red Blood Cells # 0.0 Platelet Estimate NORMAL Giant Platelets 9 H Polychromasia 2+ Anisocytosis 1+ Macrocytosis 1+ Sodium Level 139 140 Potassium Level 3.4 L 3.6 Chloride Level 110 109 Carbon Dioxide Level 20 L 23 Anion Gap 9 8 Blood Urea Nitrogen 9 12 Creatinine 0.64 0.60 Est Glomerular Filtrat Rate mL/min > 60 > 60 Glucose Level 134 127 Calcium Level 8.8 8.5 Total Bilirubin 0.0 L 0.1 L Direct Bilirubin 0.00 0.00 Indirect Bilirubin 0.0 0.1 Aspartate Amino Transf (AST/SGOT) 22 34 Alanine Aminotransferase (ALT/SGPT) 23 24 Alkaline Phosphatase 90 70 Creatine Kinase 20 L < 20 L Creatine Kinase Index 5.6 Creatinine Kinase MB (Mass) 1.11 1.61 Troponin I 0.031 0.030 B-Type Natriuretic Peptide 6160 H Total Protein 5.9 L 5.5 L Albumin 2.5 L 2.4 L Globulin 3.40 H 3.10 Albumin/Globulin Ratio 0.73 0.77 Hemoglobin A1c 5.0 Phosphorus Level 4.1 Magnesium Level 1.5 L Triglycerides Level 83 Cholesterol Level 63 L LDL Cholesterol, Calculated 27 HDL Cholesterol 19 L Cholesterol/HDL Ratio 3.3 Medications Medications Current Medications Ondansetron HCl (Zofran Inj) 4 mg ER BRIDGE PRN IV NAUSEA/VOMITING; Start 09/08/18 at 13:30; Stop 09/09/18 at 13:29 Acetaminophen (Tylenol Tab) 650 mg ER BRIDGE PRN PO .MILD PAIN 1-3 OR TEMP; Sta rt 09/08/18 at 13:30; Stop 09/09/18 at 13:29 Amiodarone HCl (Cordarone) 100 mg DAILY PO ; Start 09/09/18 at 09:00 Atenolol (Tenormin) 12.5 mg BID PO Last administered on 09/08/18at 20:43; Admin Dose 12.5 MG; Start 09/08/18 at 21:00 Digoxin (Digoxin) 0.25 mg DAILY@1300 PO ; Start 09/09/18 at 13:00 Lactulose (Enulose) 6.7 gm BID PO Last administered on 09/08/18at 20:48; Admin Dose 6.7 GM; Start 09/08/18 at 21:00 Levothyroxine Sodium (Synthroid) 50 mcg BEFORE BREAKFAST PO Last administered on 09/09/18at 06:17; Admin Dose 50 MCG; Start 09/09/18 at 07:00 Pantoprazole (Protonix Tab) 40 mg DAILY PO ; Start 09/09/18 at 09:00 Spironolactone (Aldactone) 50 mg BID DIURETICS PO Last administered on 06:17; Admin Dose 50 MG; Start 09/08/18 at 18:00 Furosemide (Lasix) 40 mg BID DIURETICS IV Last administered on 09/09/18 06:21; Admin Dose 40 MG; Start 09/08/18 at 18:00 Cefepime HCl 50 ml @ 100 mls/hr Q12 IVPB Last administered on 09/08/18at 22:59; Admin Dose 100 MLS/HR; Start 09/08/18 at 15:07 Vancomycin HCl (Vanco Iv Per Pharmacy) VANCOMYCIN PER PHARMACY PER PROTOCOL XX ; Start 09/08/18 at 15:00 Levalbuterol (Xopenex Neb) 1.25 mg Q6H RESP THERAPY HHN Last administered on 09/09/18at 01:07; Admin Dose 1.25 MG; Start 09/08/18 at 15:00 Ipratropium [place] (Atrovent 0.02% (Neb)) 0.5 mg Q6HWA RESP THERAPY HHN Last administered on 09/08/18at 21:09; Admin Dose 0.5 MG; Start 09/08/18 at 20:00 IV Flush (NS 3 ml) 3 ml PER PROTOCOL IV ; Start 09/08/18 at 15:00 Ondansetron HCl (Zofran Inj) 4 mg Q6H PRN IV NAUSEA/VOMITING; Start 09/08/18 at 15:00 Acetaminophen (Tylenol Tab) 650 mg Q6H PRN PO .PAIN 1-3 OR TEMP; Start 09/08/18 at 15:00 Enoxaparin Sodium (Lovenox) 40 mg DAILY SC ; Start 09/09/18 at 09:00 Tiotropium [place] (Spiriva) 1 inh DAILY INH ; Start 09/09/18 at 09:00 Levalbuterol (Xopenex Neb) 1.25 mg Q4H RESP THERAPY PRN HHN wheezinng; Start 09/08/18 at 15:30 Guaifenesin/ Dextromethorphan (Mucinex Dm) 1 tab BID PO Last administered on 09/08/18at 20:43; Admin Dose 1 TAB; Start 09/08/18 at 21:00 Vancomycin HCl 250 ml @ 125 mls/hr Q12H IVPB Last administered on 09/09/18at 04:48; Admin Dose 125 MLS/HR; Start 09/09/18 at 05:00 VALENTINA DALTON MD Sep 09, 2018 07:55
[2018-09-09] MEDS: IPRATROPIUM (NEB) 0.5 MG/2.5 ML AMP HHN SCH ×3 (08:10→19:30)
[2018-09-09] MEDS: LACTULOSE 30ML CUP PO SCH ×2 (08:28→20:46)
[2018-09-09] MEDS: CEFEPIME 1GM/50 ML (PMX) 50 ML IVPB SCH ×2 (08:28→20:46)
[2018-09-09] MEDS: PANTOPRAZOLE (EC) 40 MG TAB PO SCH (08:29)
[2018-09-09] MEDS: TIOTROPIUM 18 MCG CAPSULE INHA DEV INH SCH (08:29)
[2018-09-09] MEDS: GUAIFENESIN/DM (SR) TAB PO SCH ×2 (08:29→20:45)
[2018-09-09] MEDS: AMIODARONE 200 MG TAB PO SCH (08:29)
[2018-09-09] MEDS: ENOXAPARIN 40 MG/0.4 ML SYG SC SCH (08:37)
[2018-09-09] MEDS: ATENOLOL 25 MG TAB PO SCH ×2 (09:04→20:53)
[2018-09-09] MEDS ORDERED: DIGOXIN 0.25 MG TAB PO SCH (13:00)
--- NOTE | 2018-09-09 17:17 | PN ---
Date/Time of Note Date/Time of Note DATE: 09/09/18 TIME: 17:10 Assessment/Plan VTE Prophylaxis Risk score (from Ns)>0 risk: 3 SCD applied (from Ns): Yes SCD contraindicated: low risk/ambulating Pharmacological prophylaxis: LMWH Lines/Catheters IV Catheter Type (from [facility]): PICC Line Central line still needed: Yes Urinary Cath still in place: No Assessment/Plan Hospital Course A/P 1. Dyspnea acute multifactorial stable treat fluid overload and COPD 2. Acute COPD exacerbation stable, short course steroids 3. Fluid overload, cor pulmonale? Diuretics calcium channel devon, rule out ACS 4. Past tobacco 5. Hypertension. Stress test -[id number]. EF 60% at present 6. Chronic COPD 7. Pulmonary hypertension? 8. Paroxysmal A. fib? 9. Secondary hypercoagulable state, not a candidate for long-term anti-correla tion due to recent GI bleed 10. ASD defect status post surgery? 11. Cirrhosis alcoholic related stable observe 12. Chronic past alcoholism 13. Failure to thrive discharge back to SNF soon. DNR according to chart 14. Chronic hypothyroidism 16. Recent GI bleed? S: Feels 20% better. Recent cough edema no hemoptysis travel. Possibly bedbound. Does not add a lot of salt or fluid. I tried to call Dr. Domingo twice. for [phone] number, I left a message O: Vital signs stable Physical labs No pallor JVD regular no murmur rub gallop Diminished some crackles no tachypnea at rest Bowel sounds diminished nontender nondistended no RG Mild edema Result Diagram: 09/09/1852109/09/18 0522 Results 24hrs Laboratory Tests Test 09/08/18 20:29 09/09/18 05:22 Creatine Kinase < 20 L Creatine Kinase Index Creatinine Kinase MB (Mass) 1.61 Troponin I 0.030 White Blood Count 7.5 # Red Blood Count 2.76 L Hemoglobin 8.7 L Hematocrit 26.6 L Mean Corpuscular Volume 96.4 Mean Corpuscular Hemoglobin 31.5 Mean Corpuscular Hemoglobin Concent 32.7 Red Cell Distribution Width 22.2 H Platelet Count 221 Mean Platelet Volume 10.8 H Immature Granulocytes % 0.400 Neutrophils % 78.6 H Lymphocytes % 15.2 Monocytes % 5.7 Eosinophils % 0.0 Basophils % 0.1 Nucleated Red Blood Cells % 0.0 Immature Granulocytes # 0.030 Neutrophils # 5.9 Lymphocytes # 1.1 Monocytes # 0.4 Eosinophils # 0.0 Basophils # 0.0 Nucleated Red Blood Cells # 0.0 Sodium Level 140 Potassium Level 3.6 Chloride Level 109 Carbon Dioxide Level 23 Anion Gap 8 Blood Urea Nitrogen 12 Creatinine 0.60 Est Glomerular Filtrat Rate mL/min > 60 Glucose Level 127 Hemoglobin A1c 5.0 Calcium Level 8.5 Phosphorus Level 4.1 Magnesium Level 1.5 L Total Bilirubin 0.1 L Direct Bilirubin 0.00 Indirect Bilirubin 0.1 Aspartate Amino Transf (AST/SGOT) 34 Alanine Aminotransferase (ALT/SGPT) 24 Alkaline Phosphatase 70 Total Protein 5.5 L Albumin 2.4 L Globulin 3.10 Albumin/Globulin Ratio 0.77 Triglycerides Level 83 Cholesterol Level 63 L LDL Cholesterol, Calculated 27 HDL Cholesterol 19 L Cholesterol/HDL Ratio 3.3 Exam/Review of Systems Exam Vitals Vital Signs Date Temp Pulse Resp B/P (MAP) Pulse Ox O2 O2 Flow FiO2 Time Delivery Rate 09/09/18 85 16:20 09/09/18 97.5 16 105/63 98 Nasal 15:22 (77) Cannula 09/09/18 2.0 14:06 Intake and Output 09/08/18 09/08/18 09/09/18 1515:00 23:00 07:00 IntakeIntake Total 600 ml BalanceBalance 600 ml Results Results 24hrs Laboratory Tests Test 09/08/18 20:29 09/09/18 05:22 Creatine Kinase < 20 L Creatine Kinase Index Creatinine Kinase MB (Mass) 1.61 Troponin I 0.030 White Blood Count 7.5 # Red Blood Count 2.76 L Hemoglobin 8.7 L Hematocrit 26.6 L Mean Corpuscular Volume 96.4 Mean Corpuscular Hemoglobin 31.5 Mean Corpuscular Hemoglobin Concent 32.7 Red Cell Distribution Width 22.2 H Platelet Count 221 Mean Platelet Volume 10.8 H Immature Granulocytes % 0.400 Neutrophils % 78.6 H Lymphocytes % 15.2 Monocytes % 5.7 Eosinophils % 0.0 Basophils % 0.1 Nucleated Red Blood Cells % 0.0 Immature Granulocytes # 0.030 Neutrophils # 5.9 Lymphocytes # 1.1 Monocytes # 0.4 Eosinophils # 0.0 Basophils # 0.0 Nucleated Red Blood Cells # 0.0 Sodium Level 140 Potassium Level 3.6 Chloride Level 109 Carbon Dioxide Level 23 Anion Gap 8 Blood Urea Nitrogen 12 Creatinine 0.60 Est Glomerular Filtrat Rate mL/min > 60 Glucose Level 127 Hemoglobin A1c 5.0 Calcium Level 8.5 Phosphorus Level 4.1 Magnesium Level 1.5 L Total Bilirubin 0.1 L Direct Bilirubin 0.00 Indirect Bilirubin 0.1 Aspartate Amino Transf (AST/SGOT) 34 Alanine Aminotransferase (ALT/SGPT) 24 Alkaline Phosphatase 70 Total Protein 5.5 L Albumin 2.4 L Globulin 3.10 Albumin/Globulin Ratio 0.77 Triglycerides Level 83 Cholesterol Level 63 L LDL Cholesterol, Calculated 27 HDL Cholesterol 19 L Cholesterol/HDL Ratio 3.3 Medications Medication Current Medications Amiodarone HCl (Cordarone) 100 mg DAILY PO Last administered on 09/09/18 08:29; Admin Dose 100 MG; Start 09/09/18 at 09:00 Atenolol (Tenormin) 12.5 mg BID PO Last administered on 09/09/18 09:04; Admin Dose 12.5 MG; Start 09/08/18 at 21:00 Lactulose (Enulose) 6.7 gm BID PO Last administered on 09/09/18 08:28; Admin Dose 6.7 GM; Start 09/08/18 at 21:00 Levothyroxine Sodium (Synthroid) 50 mcg BEFORE BREAKFAST PO Last administered on 09/09/18 06:17; Admin Dose 50 MCG; Start 09/09/18 at 07:00 Pantoprazole (Protonix Tab) 40 mg DAILY PO Last administered on 09/09/18 08:29; Admin Dose 40 MG; Start 09/09/18 at 09:00 Spironolactone (Aldactone) 50 mg BID DIURETICS PO Last administered on 09/09/18 06:17; Admin Dose 50 MG; Start 09/08/18 at 18:00 Furosemide (Lasix) 40 mg BID DIURETICS IV Last administered on 09/09/18 06:21; Admin Dose 40 MG; Start 09/08/18 at 18:00 Cefepime HCl 50 ml @ 100 mls/hr Q12 IVPB Last administered on 09/09/18 08:28; Admin Dose 100 MLS/HR; Start 09/08/18 at 15:07 Vancomycin HCl (Vanco Iv Per Pharmacy) VANCOMYCIN PER PHARMACY PER PROTOCOL XX ; Start 09/08/18 at 15:00 Levalbuterol (Xopenex Neb) 1.25 mg Q6H RESP THERAPY HHN Last administered on 09/09/18at 14:06; Admin Dose 1.25 MG; Start 09/08/18 at 15:00 Ipratropium [place] (Atrovent 0.02% (Neb)) 0.5 mg Q6HWA RESP THERAPY HHN Last administered on 09/09/18at 14:06; Admin Dose 0.5 MG; Start 09/08/18 at 20:00 IV Flush (NS 3 ml) 3 ml PER PROTOCOL IV ; Start 09/08/18 at 15:00 Ondansetron HCl (Zofran Inj) 4 mg Q6H PRN IV NAUSEA/VOMITING; Start 09/08/18 at 15:00 Acetaminophen (Tylenol Tab) 650 mg Q6H PRN PO .PAIN 1-3 OR TEMP; Start 09/08/18 at 15:00 Enoxaparin Sodium (Lovenox) 40 mg DAILY SC Last administered on 09/09/18at 08:37; Admin Dose 40 MG; Start 09/09/18 at 09:00 Tiotropium [place] (Spiriva) 1 inh DAILY INH Last administered on 09/09/18at 08:29; Admin Dose 1 INH; Start 09/09/18 at 09:00 Levalbuterol (Xopenex Neb) 1.25 mg Q4H RESP THERAPY PRN HHN wheezinng; Start 09/08/18 at 15:30 Guaifenesin/ Dextromethorphan (Mucinex Dm) 1 tab BID PO Last administered on 09/09/18at 08:29; Admin Dose 1 TAB; Start 09/08/18 at 21:00 Vancomycin HCl 250 ml @ 125 mls/hr Q12H IVPB Last administered on 09/09/18at 04:48; Admin Dose 125 MLS/HR; Start 09/09/18 at 05:00 Miscellaneous Information (*Rx Drug Level Order Reminder*) VANCO TROUGH @ 0,400 0400 ONCE XX ; Start 09/10/18 at 04:00; Stop 09/10/18 at 04:01 ZARINA TORRES MD Sep 09, 2018 17:17
[2018-09-09] MEDS ORDERED: MAGNESIUM SULFATE 2 GM/50 ML 50 ML IVPB ONE (17:30)
[2018-09-09] MEDS ORDERED: GUAIFENESIN/DM 5ML CUP PO PRN (17:30)
[2018-09-10] VITALS (14 sets, daily range): BP systolic 88–105; BP diastolic 50–64; PULSE 76–83; RESP 18
[2018-09-10] MEDS: LEVALBUTEROL (NEB) 1.25 MG/0.5 ML AMP HHN SCH ×3 (01:01→14:47)
[2018-09-10] MEDS: SPIRONOLACTONE 50 MG TAB PO SCH ×2 (05:45→17:46)
[2018-09-10] MEDS: FUROSEMIDE 40 MG INJ IV SCH ×2 (05:45→17:47)
[2018-09-10] MEDS: LEVOTHYROXINE 50 MCG TAB PO SCH (07:02)
[2018-09-10] MEDS ORDERED: POTASSIUM CHLORIDE (SR) 20 MEQ TAB PO STA (08:01)
[2018-09-10] MEDS: PANTOPRAZOLE (EC) 40 MG TAB PO SCH (08:42)
[2018-09-10] MEDS: AMIODARONE 200 MG TAB PO SCH (08:42)
[2018-09-10] MEDS: TIOTROPIUM 18 MCG CAPSULE INHA DEV INH SCH (08:42)
[2018-09-10] MEDS: THIAMINE 100 MG TAB PO SCH (08:43)
[2018-09-10] MEDS: GUAIFENESIN/DM (SR) TAB PO SCH ×2 (08:43→21:53)
[2018-09-10] MEDS: CEFEPIME 1GM/50 ML (PMX) 50 ML IVPB SCH ×2 (08:44→21:53)
[2018-09-10] MEDS: ATENOLOL 25 MG TAB PO SCH ×2 (08:44→21:54)
[2018-09-10] MEDS: LACTULOSE 30ML CUP PO SCH (08:45)
[2018-09-10] MEDS: ENOXAPARIN 40 MG/0.4 ML SYG SC SCH (09:08)
[2018-09-10] MEDS: IPRATROPIUM (NEB) 0.5 MG/2.5 ML AMP HHN SCH ×2 (09:18→14:47)
[2018-09-10] MEDS ORDERED: SOD CHLORIDE 0.9% 250 ML IV ONE (11:30)
[2018-09-10] MEDS ORDERED: POTASSIUM CHLORIDE (SR) 20 MEQ TAB PO SCH (12:00)
--- NOTE | 2018-09-10 17:45 | PN ---
Date/Time of Note Date/Time of Note DATE: 09/10/18 TIME: 17:42 Assessment/Plan VTE Prophylaxis Risk score (from Ns)>0 risk: 7 SCD applied (from [facility]): Yes SCD contraindicated: low risk/ambulating Pharmacological prophylaxis: LMWH Lines/Catheters [facility] P[facility] Line Central line still needed: Yes Urinary Cath still in place: No Assessment/Plan Hospital Course A/P 1. Dyspnea acute multifactorial stable, treat fluid overload and COPD 2. Acute COPD exacerbation stable, short course steroids 3. Fluid overload, cor pulmonale? Diuretics; +/- ccb; ruled out ACS 4. Past tobacco 5. Hypertension. Stress test -[id number]. EF 60% at present 6. Chronic COPD 7. Pulmonary hypertension? 8. Paroxysmal A. fib? 9. Secondary hypercoagulable state, not a candidate for long-term anti- correlation due to recent GI bleed 10. ASD defect status post surgery? 11. Cirrhosis alcoholic related stable observe 12. Chronic past alcoholism 13. Failure to thrive discharge back to SNF soon. DNR according to chart 14. Chronic hypothyroidism, adjust therapy, adjust therapy 16. Recent GI bleed? 17. Diarrhea possibly secondary to medications S: 09/09 feels 20% better. Recent cough edema no hemoptysis travel. Possibly bedbound. Does not add a lot of salt or fluid. I tried to call Dr. Domingo twice. for [phone] number, I left a message 09/10 low bp this am. Improved with the fluids. Diarrhea continues. No abdominal pain fever. Awake alert follows commands O: Vss PE No pallor JVD regular no murmur rub gallop Dimin some crackles no tachypnea at rest Bs diminished nontender nondistended no RRG Mild edema Result Diagram: 09/10/18 0544 09/10/18 0544 Results 24hrs Laboratory Tests Test 09/10/18 05:44 White Blood Count 10.5 # Red Blood Count 2.78 L Hemoglobin 8.6 L Hematocrit 27.1 L Mean Corpuscular Volume 97.5 Mean Corpuscular Hemoglobin 30.9 Mean Corpuscular Hemoglobin Concent 31.7 L Red Cell Distribution Width 22.0 H Platelet Count 248 Mean Platelet Volume 10.7 H Immature Granulocytes % 0.600 H Neutrophils % 77.4 H Lymphocytes % 13.7 L Monocytes % 8.0 Eosinophils % 0.2 Basophils % 0.1 Nucleated Red Blood Cells % 0.0 Immature Granulocytes # 0.060 H Neutrophils # 8.1 H Lymphocytes # 1.4 Monocytes # 0.8 Eosinophils # 0.0 Basophils # 0.0 Nucleated Red Blood Cells # 0.0 Prothrombin Time 17.0 H Prothrombin Time Ratio 1.3 INR International Normalized Ratio 1.37 Sodium Level 141 Potassium Level 2.9 *L Chloride Level 110 Carbon Dioxide Level 24 Anion Gap 7 Blood Urea Nitrogen 13 Creatinine 0.68 Est Glomerular Filtrat Rate mL/min > 60 Glucose Level 99 Hemoglobin A1c 4.9 Calcium Level 8.6 Phosphorus Level 3.7 Magnesium Level 2.2 Total Bilirubin 0.1 L Direct Bilirubin 0.00 Indirect Bilirubin 0.1 Aspartate Amino Transf (AST/SGOT) 26 Alanine Aminotransferase (ALT/SGPT) 21 Alkaline Phosphatase 85 Total Protein 5.2 L Albumin 2.3 L Globulin 2.90 Albumin/Globulin Ratio 0.79 Thyroid Stimulating Hormone (TSH) 7.800 H Exam/Review of Systems Exam Vitals Vital Signs Date Temp Pulse Resp B/P (MAP) Pulse Ox O2 O2 Flow FiO2 Time Delivery Rate 09/10/18 80 16:47 09/10/18 98.4 93/56 (68) 98 15:35 09/10/18 16 Nasal 1.0 14:50 Cannula Intake and Output 09/09/18 09/09/18 09/10/18 1515:00 23:00 07:00 IntakeIntake Total 1200 ml 500 ml BalanceBalance 1200 ml 500 ml Results Results 24hrs Laboratory Tests Test 09/10/18 05:44 White Blood Count 10.5 # Red Blood Count 2.78 L Hemoglobin 8.6 L Hematocrit 27.1 L Mean Corpuscular Volume 97.5 Mean Corpuscular Hemoglobin 30.9 Mean Corpuscular Hemoglobin Concent 31.7 L Red Cell Distribution Width 22.0 H Platelet Count 248 Mean Platelet Volume 10.7 H Immature Granulocytes % 0.600 H Neutrophils % 77.4 H Lymphocytes % 13.7 L Monocytes % 8.0 Eosinophils % 0.2 Basophils % 0.1 Nucleated Red Blood Cells % 0.0 Immature Granulocytes # 0.060 H Neutrophils # 8.1 H Lymphocytes # 1.4 Monocytes # 0.8 Eosinophils # 0.0 Basophils # 0.0 Nucleated Red Blood Cells # 0.0 Prothrombin Time 17.0 H Prothrombin Time Ratio 1.3 INR International Normalized Ratio 1.37 Sodium Level 141 Potassium Level 2.9 *L Chloride Level 110 Carbon Dioxide Level 24 Anion Gap 7 Blood Urea Nitrogen 13 Creatinine 0.68 Est Glomerular Filtrat Rate mL/min > 60 Glucose Level 99 Hemoglobin A1c 4.9 Calcium Level 8.6 Phosphorus Level 3.7 Magnesium Level 2.2 Total Bilirubin 0.1 L Direct Bilirubin 0.00 Indirect Bilirubin 0.1 Aspartate Amino Transf (AST/SGOT) 26 Alanine Aminotransferase (ALT/SGPT) 21 Alkaline Phosphatase 85 Total Protein 5.2 L Albumin 2.3 L Globulin 2.90 Albumin/Globulin Ratio 0.79 Thyroid Stimulating Hormone (TSH) 7.800 H Medications Medication Current Medications Amiodarone HCl (Cordarone) 100 mg DAILY PO Last administered on 09/10/18 08:42; Admin Dose 100 MG; Start 09/09/18 at 09:00 Atenolol (Tenormin) 12.5 mg BID PO Last administered on 09/10/18 08:44; Admin Dose 12.5 MG; Start 09/08/18 at 21:00 Lactulose (Enulose) 6.7 gm BID PO Last administered on 09/10/18 08:45; Admin Dose 6.7 GM; Start 09/08/18 at 21:00 Levothyroxine Sodium (Synthroid) 50 mcg BEFORE BREAKFAST PO Last administered on 09/10/18 07:02; Admin Dose 50 MCG; Start 09/09/18 at 07:00 Pantoprazole (Protonix Tab) 40 mg DAILY PO Last administered on 09/10/18 08:42; Admin Dose 40 MG; Start 09/09/18 at 09:00 Spironolactone (Aldactone) 50 mg BID DIURETICS PO Last administered on 09/10/18 05:45; Admin Dose 50 MG; Start 09/08/18 at 18:00 Furosemide (Lasix) 40 mg BID DIURETICS IV Last administered on 09/10/18 05:45; Admin Dose 40 MG; Start 09/08/18 at 18:00 Cefepime HCl 50 ml @ 100 mls/hr Q12 IVPB Last administered on 09/10/18 08:44; Admin Dose 100 MLS/HR; Start 09/08/18 at 15:07 Levalbuterol (Xopenex Neb) 1.25 mg Q6H RESP THERAPY HHN Last administered on 09/10/18 14:47; Admin Dose 1.25 MG; Start 09/08/18 at 15:00 Ipratropium [place] (Atrovent 0.02% (Neb)) 0.5 mg Q6HWA RESP THERAPY HHN Last administered on 09/10/18 14:47; Admin Dose 0.5 MG; Start 09/08/18 at 20:00 IV Flush (NS 3 ml) 3 ml PER PROTOCOL IV ; Start 09/08/18 at 15:00 Ondansetron HCl (Zofran Inj) 4 mg Q6H PRN IV NAUSEA/VOMITING; Start 09/08/18 at 15:00 Acetaminophen (Tylenol Tab) 650 mg Q6H PRN PO .PAIN 1-3 OR TEMP; Start 09/08/18 at 15:00 Enoxaparin Sodium (Lovenox) 40 mg DAILY SC Last administered on 09/10/18 09:08; Admin Dose 40 MG; Start 09/09/18 at 09:00 Tiotropium [place] (Spiriva) 1 inh DAILY INH Last administered on 09/10/18 08:42; Admin Dose 1 INH; Start 09/09/18 at 09:00 Levalbuterol (Xopenex Neb) 1.25 mg Q4H RESP THERAPY PRN HHN wheezinng; Start 09/08/18 at 15:30 Guaifenesin/ Dextromethorphan (Mucinex Dm) 1 tab BID PO Last administered on 09/10/18 08:43; Admin Dose 1 TAB; Start 09/08/18 at 21:00 Guaifenesin/ Dextromethorphan (Robitussin Dm Liquid Cup) 10 ml Q4H PRN PO COUGH; Start 09/09/18 at 17:30 Thiamine HCl (Vitamin B1) 100 mg DAILY PO Last administered on 09/10/18 08:43; Admin Dose 100 MG; Start 09/10/18 at 09:00 ZARINA TORRES MD Sep 10, 2018 17:45
[2018-09-10] MEDS ORDERED: SOD CHLORIDE 0.9% 500 ML IV ONE (18:00)
[2018-09-10] MEDS ORDERED: ALBUMIN HUMAN 25% 100 ML IV ONE (19:00)
[2018-09-10] MEDS ORDERED: POTASSIUM CHLORIDE 20 MEQ POWDER FOR ORAL SOLN PO ONE (20:00)
[2018-09-11] VITALS (14 sets, daily range): BP systolic 95–110; BP diastolic 56–68; PULSE 29–84; RESP 18–20
[2018-09-11] MEDS: LEVALBUTEROL (NEB) 1.25 MG/0.5 ML AMP HHN SCH ×3 (00:12→15:50)
[2018-09-11] MEDS: IPRATROPIUM (NEB) 0.5 MG/2.5 ML AMP HHN SCH ×3 (00:12→15:50)
[2018-09-11] MEDS: SPIRONOLACTONE 50 MG TAB PO SCH ×2 (05:35→18:02)
[2018-09-11] MEDS: FUROSEMIDE 40 MG INJ IV SCH ×3 (05:35→18:02)
[2018-09-11] MEDS: LEVOTHYROXINE 50 MCG TAB PO SCH (07:04)
[2018-09-11] MEDS: CEFEPIME 1GM/50 ML (PMX) 50 ML IVPB SCH ×2 (08:23→21:21)
[2018-09-11] MEDS: AMIODARONE 200 MG TAB PO SCH (08:23)
[2018-09-11] MEDS: TIOTROPIUM 18 MCG CAPSULE INHA DEV INH SCH (08:24)
[2018-09-11] MEDS: PANTOPRAZOLE (EC) 40 MG TAB PO SCH (08:24)
[2018-09-11] MEDS: ATENOLOL 25 MG TAB PO SCH ×2 (08:24→21:22)
[2018-09-11] MEDS: GUAIFENESIN/DM (SR) TAB PO SCH ×2 (08:24→21:21)
[2018-09-11] MEDS: THIAMINE 100 MG TAB PO SCH (08:24)
[2018-09-11] MEDS ORDERED: LACTULOSE 30ML CUP PO SCH (09:00)
[2018-09-11] MEDS: ENOXAPARIN 40 MG/0.4 ML SYG SC SCH (09:14)
--- NOTE | 2018-09-11 11:49 | CONS ---
Consult Date/Type/Reason Admit Date/Time Sep 08, 2018 at 13:04 Initial Consult Date 09/09/18 Type of Consultation: CV Date/Time of Note DATE: 09/11/18 TIME: 11:40 Subjective CARDIOLOGY follow-up note Subjective: Discussed with the staff telemetry was reviewed. Patient has remained in sinus rhythm Patient with no chest pain or pressure Patient with less shortness of breath Objective: General: no acute distress HEENT: NC/AT. pupils are equal. round. NECK: NO JVD. no stridor. CV: RRR. systolic murmur; no gallop or rubs. PULM: no wheezing or rhonchi. GI: SOFT, NT, ND, no rebound or guarding Extremity: `1+ B/L LE edema. no clubbing. neuro: awake and alert, Psych: calm and pleasant rectal: deferred Objective Vitals Vital Signs Date Temp Pulse Resp B/P (MAP) Pulse Ox O2 O2 Flow FiO2 Time Delivery Rate 09/11/18 Nasal 1.0 08:20 Cannula 09/11/18 84 08:06 09/11/18 98.0 20 106/68 98 07:49 (81) Intake and Output 09/10/18 09/10/18 09/11/18 1515:00 23:00 07:00 IntakeIntake Total 300 ml 800 ml 250 ml BalanceBalance 300 ml 800 ml 250 ml Results/Medications Result Diagram: 09/11/18 0532 09/11/18 0535 Results 24 hrs Laboratory Tests Test 09/10/18 20:12 09/11/18 05:32 09/11/18 05:35 Potassium Level 3.7 3.6 White Blood Count 7.8 # Red Blood Count 2.69 L Hemoglobin 8.6 L Hematocrit 26.4 L Mean Corpuscular Volume 98.1 Mean Corpuscular Hemoglobin 32.0 Mean Corpuscular Hemoglobin Concent 32.6 Red Cell Distribution Width 22.2 H Platelet Count 227 Mean Platelet Volume 10.9 H Immature Granulocytes % 0.800 H Neutrophils % 73.2 Lymphocytes % 17.3 Monocytes % 8.2 Eosinophils % 0.5 Basophils % 0.0 Nucleated Red Blood Cells % 0.0 Immature Granulocytes # 0.060 H Neutrophils # 5.7 Lymphocytes # 1.4 Monocytes # 0.6 Eosinophils # 0.0 Basophils # 0.0 Nucleated Red Blood Cells # 0.0 Phosphorus Level 3.0 Magnesium Level 2.0 Ammonia 22 Sodium Level 144 Chloride Level 113 H Carbon Dioxide Level 26 Anion Gap 5 Blood Urea Nitrogen 11 Creatinine 0.58 Est Glomerular Filtrat Rate mL/min > 60 Glucose Level 97 Calcium Level 9.2 Total Bilirubin 0.1 L Direct Bilirubin 0.00 Indirect Bilirubin 0.1 Aspartate Amino Transf (AST/SGOT) 31 Alanine Aminotransferase (ALT/SGPT) 36 Alkaline Phosphatase 94 Total Protein 5.6 L Albumin 2.5 L Globulin 3.10 Albumin/Globulin Ratio 0.80 Home Meds Reported Medications Pantoprazole* (Protonix*) 40 Mg Tablet.dr, 40 MG PO DAILY, TAB 09/08/18 Levothyroxine Sodium* (Levoxyl*) 50 Mcg Tablet, 50 MCG PO BEFORE BREAKFAST, #30 TAB 09/08/18 Furosemide* (Furosemide*) 40 Mg Tablet, 40 MG PO DAILY, TAB 09/08/18 Lactulose* (Lactulose*) 20 Gm/30 Ml Solution, 6.7 GM PO BID, ML 09/08/18 Ipratropium [place] (Ipratropium [place]) 15 Ml [place], 0.5 MG NS Q4 PRN for SHORTNESS OF BREATH, SPRAY 09/08/18 Atenolol* (Atenolol*) 25 Mg Tablet, 12.5 MG PO BID, #60 TAB 09/08/18 Amiodarone Hcl* (Amiodarone Hcl*) 100 Mg Tablet, 100 MG PO DAILY, #30 TAB 09/08/18 Spironolactone* (Aldactone*) 50 Mg Tablet, 50 MG PO BID, #60 TAB 09/08/18 Albuterol Sulfate* (Albuterol Sulfate* Neb) 0.083%-3 Ml Neb, 2.5 MG NEB Q4H PRN for WHEEZING AND SOB, #30 VIAL 5MG/ML 0.55 2.5MG 09/08/18 Digoxin* (Digitek*) 250 Mcg Tablet, 0.25 MG PO DAILY, TAB 09/08/18 Discontinued Reported Medications Ipratropium [place]* (Atrovent HFA*) 12.9 Gm Aer.w.adap, 2 PUFF INHALATION Q4H for SHORTNESS OF BREATH, #1 INHALER 09/08/18 Lactulose* (Lactulose*) 10 Gm/15 Ml Solution, 10 GM PO Q6, ML 09/08/18 Discontinued Scripts Amiodarone Hcl* (Amiodarone Hcl*) 200 Mg Tablet, 200 MG PO DAILY, #30 TAB Prov:THU THORPE BUGGYMAN 07/22/18 Metoprolol Tartrate* (Lopressor*) 25 Mg Tab, 12.5 MG PO BID, #30 TAB Prov:THU THORPE BUGGYMAN 07/22/18 Furosemide (Lasix) 20 Mg Tab, 20 MG PO DAILY for 30 Days, #30 TAB 3 Refills Prov:ISATU ARDON 07/15/18 Spironolactone* (Aldactone*) 25 Mg Tablet, 12.5 MG PO DAILY for 30 Days, #15 TAB 3 Refills Prov:ISATU ARDON 07/15/18 Salmeterol Xinaf/Fluticasone* (Advair*) 250-50 Diskus Inhaler, 1 INH INHALATION BID for 30 Days, #1 INHALER 3 Refills Prov:ISATU ARDON 07/15/18 Albuterol Sulfate* (Proair HFA*) 8.5 Gm Hfa.aer.ad, 2 PUFF INH Q4 PRN for WH EEZING, #1 INHALER 3 Refills Prov:ISATU ARDON 07/15/18 Medications Current Medications Amiodarone HCl (Cordarone) 100 mg DAILY PO Last administered on 09/11/18at 08:23; Admin Dose 100 MG; Start 09/09/18 at 09:00 Atenolol (Tenormin) 12.5 mg BID PO Last administered on 09/11/18at 08:24; Admin Dose 12.5 MG; Start 09/08/18 at 21:00 Pantoprazole (Protonix Tab) 40 mg DAILY PO Last administered on 09/11/18at 08:24; Admin Dose 40 MG; Start 09/09/18 at 09:00 Cefepime HCl 50 ml @ 100 mls/hr Q12 IVPB Last administered on 09/11/18at 08:23; Admin Dose 100 MLS/HR; Start 09/08/18 at 15:07 IV Flush (NS 3 ml) 3 ml PER PROTOCOL IV ; Start 09/08/18 at 15:00 Ondansetron HCl (Zofran Inj) 4 mg Q6H PRN IV NAUSEA/VOMITING; Start 09/08/18 at 15:00 Acetaminophen (Tylenol Tab) 650 mg Q6H PRN PO .PAIN 1-3 OR TEMP; Start 09/08/18 at 15:00 Enoxaparin Sodium (Lovenox) 40 mg DAILY SC Last administered on 09/11/18 09:14; Admin Dose 40 MG; Start 09/09/18 at 09:00 Tiotropium [place] (Spiriva) 1 inh DAILY INH Last administered on 09/11/18 08:24; Admin Dose 1 INH; Start 09/09/18 at 09:00 Levalbuterol (Xopenex Neb) 1.25 mg Q4H RESP THERAPY PRN HHN wheezinng; Start 09/08/18 at 15:30 Guaifenesin/ Dextromethorphan (Mucinex Dm) 1 tab BID PO Last administered on 09/11/18 08:24; Admin Dose 1 TAB; Start 09/08/18 at 21:00 Guaifenesin/ Dextromethorphan (Robitussin Dm Liquid Cup) 10 ml Q4H PRN PO COUGH; Start 09/09/18 at 17:30 Thiamine HCl (Vitamin B1) 100 mg DAILY PO Last administered on 09/11/18 08:24; Admin Dose 100 MG; Start 09/10/18 at 09:00 Furosemide (Lasix) 20 mg BID DIURETICS IV Last administered on 09/11/18 08:23; Admin Dose 20 MG; Start 09/10/18 at 18:00 Ipratropium [place] (Atrovent 0.02% (Neb)) 0.5 mg Q8H RESP THERAPY HHN Last administered on 09/11/18 09:49; Admin Dose 0.5 MG; Start 09/11/18 at 00:00 Levalbuterol (Xopenex Neb) 1.25 mg Q8H RESP THERAPY HHN Last administered on 09/11/18 09:49; Admin Dose 1.25 MG; Start 09/11/18 at 00:00 Spironolactone (Aldactone) 25 mg BID DIURETICS PO Last administered on 09/10/18 17:46; Admin Dose 25 MG; Start 09/10/18 at 18:00 Levothyroxine Sodium (Synthroid) 100 mcg BEFORE BREAKFAST PO Last administered on 09/11/18 07:04; Admin Dose 100 MCG; Start 09/11/18 at 07:00 Lactulose (Enulose) 6.7 gm DAILY PO Last administered on 09/11/18at 08:25; Admin Dose 6.7 GM; Start 09/11/18 at 09:00 Assessment/Plan Hospital Course (Demo Recall) Chronic diastolic congestive heart failure-currently compensated Labile blood pressure Paroxysmal atrial fibrillation History of COPD Normal nuclear cardiac perfusion study 12/25/2017 Preserved left ventricular systolic ejection fraction echocardiogram 07/05/2018 ASD status post surgical repair Plan: Continue with diuresis as tolerated will continue amiodarone After digoxin off therapeutic AC due to recent GIB Respiratory care as per internal medicine Thank you for his referral. We will continue to follow along with you until or his associate return on Wednesday KYE CHIU MD [facility] KYE CHIU MD Sep 11, 2018 11:48
--- NOTE | 2018-09-11 15:06 | PN ---
Date/Time of Note Date/Time of Note DATE: 09/11/18 TIME: 15:03 Assessment/Plan VTE Prophylaxis Risk score (from Ns)>0 risk: 7 SCD applied (from Ns): Yes SCD contraindicated: low risk/ambulating Pharmacological prophylaxis: LMWH Lines/Catheters IV Catheter Type (from Nrs): PICC Line Central line still needed: Yes Urinary Cath still in place: No Assessment/Plan Hospital Course A/P 1. Dyspnea acute multifactorial stable, treat fluid overload and COPD 2. Ac COPD exacerbation stable, short course steroids 3. Fluid overload, cor pulmonale? Diuretics; +/- ccb; ruled out ACS 4. Past tobacco 5. Hypertension. Stress test -[id number]. EF 60% at present 6. Chr COPD 7. Pul htn? 8. Paroxysmal A. fib? 9. Secondary hypercoagulable state, not a candidate for long-term anti- correlation due to recent GI bleed 10. ASD defect status post surgery? 11. Cirrhosis alcoholic related stable observe 12. Chr past alcoholism 13. Ftt; discharge back to SNF soon. DNR according to chart 14. Chr hypothyroidism, adjust therapy, adjust therapy 16. Recent GI bleed? 17. Diarrhea possibly secondary to medications S: 09/09 feels 20% better. Recent cough edema no hemoptysis travel. Possibly bedbound. Doesnt add a lot of salt or fluid. I tried to call Dr. Domingo twice. for [phone] number, I left a message 09/10: low bp this am. Improved with the fluids. Diarrhea continues. No abdominal pain fever. Awake alert follows commands 09/11: dyspnea; daughter. Probably needs paracentesis O: Vss PE No pallor JVD regular no murmur rub gallop Dimin some crackles; tachypnea Bs diminished nontender distended no RRG Mild edema Result Diagram: 09/11/18 0532 09/11/18 0535 Results 24hrs Laboratory Tests Test 09/10/18 20:12 09/11/18 05:32 09/11/18 05:35 Potassium Level 3.7 3.6 White Blood Count 7.8 # Red Blood Count 2.69 L Hemoglobin 8.6 L Hematocrit 26.4 L Mean Corpuscular Volume 98.1 Mean Corpuscular Hemoglobin 32.0 Mean Corpuscular Hemoglobin Concent 32.6 Red Cell Distribution Width 22.2 H Platelet Count 227 Mean Platelet Volume 10.9 H Immature Granulocytes % 0.800 H Neutrophils % 73.2 Lymphocytes % 17.3 Monocytes % 8.2 Eosinophils % 0.5 Basophils % 0.0 Nucleated Red Blood Cells % 0.0 Immature Granulocytes # 0.060 H Neutrophils # 5.7 Lymphocytes # 1.4 Monocytes # 0.6 Eosinophils # 0.0 Basophils # 0.0 Nucleated Red Blood Cells # 0.0 Phosphorus Level 3.0 Magnesium Level 2.0 Ammonia 22 Sodium Level 144 Chloride Level 113 H Carbon Dioxide Level 26 Anion Gap 5 Blood Urea Nitrogen 11 Creatinine 0.58 Est Glomerular Filtrat Rate mL/min > 60 Glucose Level 97 Calcium Level 9.2 Total Bilirubin 0.1 L Direct Bilirubin 0.00 Indirect Bilirubin 0.1 Aspartate Amino Transf (AST/SGOT) 31 Alanine Aminotransferase (ALT/SGPT) 36 Alkaline Phosphatase 94 Total Protein 5.6 L Albumin 2.5 L Globulin 3.10 Albumin/Globulin Ratio 0.80 Exam/Review of Systems Exam Vitals Vital Signs Date Temp Pulse Resp B/P (MAP) Pulse Ox O2 O2 Flow FiO2 Time Delivery Rate 09/11/18 83 12:18 09/11/18 98.0 20 110/67 98 11:47 (81) 09/11/18 Nasal 1.0 08:20 Cannula Intake and Output 09/10/18 09/10/18 09/11/18 1515:00 23:00 07:00 IntakeIntake Total 300 ml 800 ml 250 ml BalanceBalance 300 ml 800 ml 250 ml Results Results 24hrs Laboratory Tests Test 09/10/18 20:12 09/11/18 05:32 09/11/18 05:35 Potassium Level 3.7 3.6 White Blood Count 7.8 # Red Blood Count 2.69 L Hemoglobin 8.6 L Hematocrit 26.4 L Mean Corpuscular Volume 98.1 Mean Corpuscular Hemoglobin 32.0 Mean Corpuscular Hemoglobin Concent 32.6 Red Cell Distribution Width 22.2 H Platelet Count 227 Mean Platelet Volume 10.9 H Immature Granulocytes % 0.800 H Neutrophils % 73.2 Lymphocytes % 17.3 Monocytes % 8.2 Eosinophils % 0.5 Basophils % 0.0 Nucleated Red Blood Cells % 0.0 Immature Granulocytes # 0.060 H Neutrophils # 5.7 Lymphocytes # 1.4 Monocytes # 0.6 Eosinophils # 0.0 Basophils # 0.0 Nucleated Red Blood Cells # 0.0 Phosphorus Level 3.0 Magnesium Level 2.0 Ammonia 22 Sodium Level 144 Chloride Level 113 H Carbon Dioxide Level 26 Anion Gap 5 Blood Urea Nitrogen 11 Creatinine 0.58 Est Glomerular Filtrat Rate mL/min > 60 Glucose Level 97 Calcium Level 9.2 Total Bilirubin 0.1 L Direct Bilirubin 0.00 Indirect Bilirubin 0.1 Aspartate Amino Transf (AST/SGOT) 31 Alanine Aminotransferase (ALT/SGPT) 36 Alkaline Phosphatase 94 Total Protein 5.6 L Albumin 2.5 L Globulin 3.10 Albumin/Globulin Ratio 0.80 Medications Medication Current Medications Amiodarone HCl (Cordarone) 100 mg DAILY PO Last administered on 09/11/18 08:23; Admin Dose 100 MG; Start 09/09/18 at 09:00 Atenolol (Tenormin) 12.5 mg BID PO Last administered on 09/11/18 08:24; Admin Dose 12.5 MG; Start 09/08/18 at 21:00 Pantoprazole (Protonix Tab) 40 mg DAILY PO Last administered on 09/11/18 08:24; Admin Dose 40 MG; Start 09/09/18 at 09:00 Cefepime HCl 50 ml @ 100 mls/hr Q12 IVPB Last administered on 09/11/18 08:23; Admin Dose 100 MLS/HR; Start 09/08/18 at 15:07 IV Flush (NS 3 ml) 3 ml PER PROTOCOL IV ; Start 09/08/18 at 15:00 Ondansetron HCl (Zofran Inj) 4 mg Q6H PRN IV NAUSEA/VOMITING; Start 09/08/18 at 15:00 Acetaminophen (Tylenol Tab) 650 mg Q6H PRN PO .PAIN 1-3 OR TEMP; Start 09/08/18 at 15:00 Enoxaparin Sodium (Lovenox) 40 mg DAILY SC Last administered on 09/11/18 09:14; Admin Dose 40 MG; Start 09/09/18 at 09:00 Tiotropium [place] (Spiriva) 1 inh DAILY INH Last administered on 09/11/18 08:24; Admin Dose 1 INH; Start 09/09/18 at 09:00 Levalbuterol (Xopenex Neb) 1.25 mg Q4H RESP THERAPY PRN HHN wheezinng; Start 09/08/18 at 15:30 Guaifenesin/ Dextromethorphan (Mucinex Dm) 1 tab BID PO Last administered on 09/11/18 08:24; Admin Dose 1 TAB; Start 09/08/18 at 21:00 Guaifenesin/ Dextromethorphan (Robitussin Dm Liquid Cup) 10 ml Q4H PRN PO C OUGH; Start 09/09/18 at 17:30 Thiamine HCl (Vitamin B1) 100 mg DAILY PO Last administered on 09/11/18 08:24; Admin Dose 100 MG; Start 09/10/18 at 09:00 Furosemide (Lasix) 20 mg BID DIURETICS IV Last administered on 09/11/18 08:23; Admin Dose 20 MG; Start 09/10/18 at 18:00 Ipratropium [place] (Atrovent 0.02% (Neb)) 0.5 mg Q8H RESP THERAPY HHN Last administered on 09/11/18 09:49; Admin Dose 0.5 MG; Start 09/11/18 at 00:00 Levalbuterol (Xopenex Neb) 1.25 mg Q8H RESP THERAPY HHN Last administered on 09/11/18 09:49; Admin Dose 1.25 MG; Start 09/11/18 at 00:00 Spironolactone (Aldactone) 25 mg BID DIURETICS PO Last administered on 09/10/18 17:46; Admin Dose 25 MG; Start 09/10/18 at 18:00 Levothyroxine Sodium (Synthroid) 100 mcg BEFORE BREAKFAST PO Last administered on 09/11/18 07:04; Admin Dose 100 MCG; Start 09/11/18 at 07:00 Lactulose (Enulose) 6.7 gm DAILY PO Last administered on 09/11/18 08:25; Admin Dose 6.7 GM; Start 09/11/18 at 09:00 ZARINA TORRES MD Sep 11, 2018 15:06
[2018-09-11] MEDS ORDERED: LIDOCAINE 1% (MPF) 5 ML VIAL ONE (17:55)
[2018-09-11] MEDS: ALBUMIN HUMAN 25% 100 ML IV SCH (18:02)
[2018-09-11] MEDS: LACTULOSE 30ML CUP PO SCH (21:21)
[2018-09-11] MEDS: LEVALBUTEROL (NEB) 1.25 MG/0.5 ML AMP HHN PRN (22:24)
[2018-09-12] VITALS (18 sets, daily range): BP systolic 92–105; BP diastolic 51–62; PULSE 65–90; RESP 18–19
[2018-09-12] MEDS: LEVALBUTEROL (NEB) 1.25 MG/0.5 ML AMP HHN SCH ×3 (00:46→16:00)
[2018-09-12] MEDS: IPRATROPIUM (NEB) 0.5 MG/2.5 ML AMP HHN SCH ×3 (00:46→16:00)
[2018-09-12] MEDS: ALBUMIN HUMAN 25% 100 ML IV SCH ×3 (01:37→18:55)
[2018-09-12] MEDS: LEVOTHYROXINE 50 MCG TAB PO SCH (07:02)
[2018-09-12] MEDS: FUROSEMIDE 40 MG INJ IV SCH ×3 (07:03→21:00)
[2018-09-12] MEDS: SPIRONOLACTONE 50 MG TAB PO SCH ×2 (07:03→18:54)
[2018-09-12] MEDS: AMIODARONE 200 MG TAB PO SCH (08:17)
[2018-09-12] MEDS: PANTOPRAZOLE (EC) 40 MG TAB PO SCH (08:18)
[2018-09-12] MEDS: CEFEPIME 1GM/50 ML (PMX) 50 ML IVPB SCH ×2 (08:18→21:00)
[2018-09-12] MEDS: GUAIFENESIN/DM (SR) TAB PO SCH ×2 (08:18→20:59)
[2018-09-12] MEDS: THIAMINE 100 MG TAB PO SCH (08:18)
[2018-09-12] MEDS: TIOTROPIUM 18 MCG CAPSULE INHA DEV INH SCH (08:20)
[2018-09-12] MEDS: LACTULOSE 30ML CUP PO SCH ×2 (08:21→20:59)
[2018-09-12] MEDS ORDERED: traMADol 50 MG TAB PO ONE (11:30)
[2018-09-12] MEDS: LEVALBUTEROL (NEB) 1.25 MG/0.5 ML AMP HHN PRN (12:22)
--- NOTE | 2018-09-12 12:58 | CONS ---
Assessment/Plan Cardiology NYHA: III Heart Failure Type: Chronic Heart Failure Type: Diastolic Assessment/Plan Hospital Course (Demo Recall) Acute decompensated diastolic congestive heart failure Pneumonia Labile blood pressure Paroxysmal atrial fibrillation History of COPD Normal nuclear cardiac perfusion study 12/25/2017 Preserved left ventricular systolic ejection fraction echocardiogram 07/05/2018 ASD status post surgical repair ? Aphasia -As per family and nursing staff, patient unable to speak as of this morning. Unclear if difficulty with speaking because of tiredness or aphasic. Is able to move all extremities. Even her history of pelvis which relation, would check CT head. In discussion with family, she has been intolerant to anticoagulation given recurrent rectal bleeding. -We will adjust diuretics to every 8 hours Consultation Date/Type/Reason Admit Date/Time Sep 08, 2018 at 13:04 Initial Consult Date 09/09/18 Type of Consult Cardiology Date/Time of Note DATE: 09/12/18 TIME: 12:56 24 HR Interval Summary Free Text/Dictation Shortness of breath is slightly better. Complaining of difficulty with speaking. Discussion with staff, and family and patient, unclear if unable to speak or too tired to speak Exam/Review of Systems Vital Signs Vitals Vital Signs Date Temp Pulse Resp B/P (MAP) Pulse Ox O2 O2 Flow FiO2 Time Delivery Rate 09/12/18 84 20 95 Nasal 2.0 12:26 Cannula 09/12/18 97.0 102/53 11:48 (69) 09/12/18 30 05:14 Intake and Output 09/11/18 09/11/18 09/12/18 1414:59 22:59 06:59 IntakeIntake Total 300 ml 850 ml 100 ml BalanceBalance 300 ml 850 ml 100 ml Exam Constitutional: alert, oriented (Following commands, undergoing nebulizer treatment) Head: normocephalic Respiratory: other (Coarse breath sounds, scattered crackles, mild wheeze) Cardiovascular: regular rate and rhythm (S1-S2 heard) Gastrointestinal: soft, non-tender, bowel sounds Extremities: edema Labs Result Diagram: 09/12/1851909/12/18 0520 Results 24hrs Laboratory Tests Test 09/11/18 23:00 09/12/18 05:20 09/12/18 06:00 Blood Gas Specimen Blood arterial Blood arterial Source Arterial Blood Date 09/12/2018 12:20:30 09/12/2018 5:36:58 AM Drawn AM Arterial Blood pH 7.286 *L 7.371 (Temp corrected) Arterial Blood pCO2 50.2 H 42.5 (Temp correct) Arterial Blood pO2 85.1 102.4 H (Temp corrected) Arterial Blood HCO3 23.4 24.1 Arterial Blood Base -3.4 L -1.2 Excess Arterial Blood 95.0 97.3 Oxygen Saturation Senthil Test N/A N/A Arterial Blood Gas Right Brachial Right Brachial Puncture Site Arterial 0.3 0.3 Blood Carboxyhemoglob in Arterial Blood 0.2 0.4 Methemoglobin Blood Gas A-a O2 69.8 H 61.6 H Differential Oxyhemoglobin Percent 94.5 96.6 Blood Gas Temperature 37.0 37.0 Blood Gas Respiration 16.0 16.0 Rate Blood Gas Actual 20 21 Respiration Rate Blood Gas Modality MASK - BIPAP MASK - BIPAP FiO2 30.0 30.0 Blood Gas Tidal 480.0 490.0 Volume Blood Gas IPAP/EPAP 15/5 15/5 Ratio Blood Gas Critical Inocencia YOU RN Value Read Back Blood Gas Notified MG MG Whom Blood Gas Notified 09/12/2018 12:31:24 09/12/2018 5:45:19 AM Time AM White Blood Count 8.6 Red Blood Count 2.54 L Hemoglobin 8.1 L Hematocrit 25.9 L Mean Corpuscular 102.0 H Volume Mean Corpuscular 31.9 Hemoglobin Mean Corpuscular 31.3 L Hemoglobin Concent Red Cell Distribution 22.6 H Width Platelet Count 218 Mean Platelet Volume 11.1 H Immature Granulocytes 0.900 H % Neutrophils % 73.2 Lymphocytes % 18.9 Monocytes % 6.9 Eosinophils % 0.0 Basophils % 0.1 Nucleated Red Blood 0.0 Cells % Immature Granulocytes 0.080 H # Neutrophils # 6.3 Lymphocytes # 1.6 Monocytes # 0.6 Eosinophils # 0.0 Basophils # 0.0 Nucleated Red Blood 0.0 Cells # Prothrombin Time 17.3 H Prothrombin Time 1.4 Ratio INR International 1.40 Normalized Ratio Sodium Level 147 H Potassium Level 3.5 Chloride Level 113 H Carbon Dioxide Level 25 Anion Gap 9 Blood Urea Nitrogen 12 Creatinine 0.68 Est Glomerular > 60 Filtrat Rate mL/min Glucose Level 98 Calcium Level 9.5 Phosphorus Level 3.6 Magnesium Level 1.9 Total Bilirubin 0.1 L Direct Bilirubin 0.00 Indirect Bilirubin 0.1 Aspartate Amino 24 Transf (AST/SGOT) Alanine 22 Aminotransferase (ALT /SGPT) Alkaline Phosphatase 83 Ammonia 41 #H Total Protein 5.8 L Albumin 3.2 L Globulin 2.60 Albumin/Globulin 1.23 Ratio Medications Medications Current Medications Amiodarone HCl (Cordarone) 100 mg DAILY PO Last administered on 09/12/18 08:17; Admin Dose 100 MG; Start 09/09/18 at 09:00 Atenolol (Tenormin) 12.5 mg BID PO Last administered on 09/11/18 21:22; Admin Dose 12.5 MG; Start 09/08/18 at 21:00; Status Hold Pantoprazole (Protonix Tab) 40 mg DAILY PO Last administered on 09/12/18 08:18; Admin Dose 40 MG; Start 09/09/18 at 09:00 Cefepime HCl 50 ml @ 100 mls/hr Q12 IVPB Last administered on 09/12/18 08:18; Admin Dose 100 MLS/HR; Start 09/08/18 at 15:07 IV Flush (NS 3 ml) 3 ml PER PROTOCOL IV ; Start 09/08/18 at 15:00 Ondansetron HCl (Zofran Inj) 4 mg Q6H PRN IV NAUSEA/VOMITING; Start 09/08/18 at 15:00 Acetaminophen (Tylenol Tab) 650 mg Q6H PRN PO .PAIN 1-3 OR TEMP; Start 09/08/18 at 15:00 Tiotropium [place] (Spiriva) 1 inh DAILY INH Last administered on 09/12/18 08:20; Admin Dose 1 INH; Start 09/09/18 at 09:00 Levalbuterol (Xopenex Neb) 1.25 mg Q4H RESP THERAPY PRN HHN wheezinng Last administered on 09/12/18 12:22; Admin Dose 1.25 MG; Start 09/08/18 at 15:30 Guaifenesin/ Dextromethorphan (Mucinex Dm) 1 tab BID PO Last administered on 09/12/18 08:18; Admin Dose 1 TAB; Start 09/08/18 at 21:00 Guaifenesin/ Dextromethorphan (Robitussin Dm Liquid Cup) 10 ml Q4H PRN PO COUGH; Start 09/09/18 at 17:30 Thiamine HCl (Vitamin B1) 100 mg DAILY PO Last administered on 09/12/18 08:18; Admin Dose 100 MG; Start 09/10/18 at 09:00 Furosemide (Lasix) 20 mg BID DIURETICS IV Last administered on 09/12/18 07:03; Admin Dose 20 MG; Start 09/10/18 at 18:00 Ipratropium [place] (Atrovent 0.02% (Neb)) 0.5 mg Q8H RESP THERAPY HHN Last administered on 09/12/18 07:31; Admin Dose 0.5 MG; Start 09/11/18 at 00:00 Levalbuterol (Xopenex Neb) 1.25 mg Q8H RESP THERAPY HHN Last administered on 09/12/18 07:31; Admin Dose 1.25 MG; Start 09/11/18 at 00:00 Spironolactone (Aldactone) 25 mg BID DIURETICS PO Last administered on 09/12/18 07:03; Admin Dose 25 MG; Start 09/10/18 at 18:00 Levothyroxine Sodium (Synthroid) 100 mcg BEFORE BREAKFAST PO Last administered on 09/12/18 07:02; Admin Dose 100 MCG; Start 09/11/18 at 07:00 Enoxaparin Sodium (Lovenox) 40 mg DAILY SC ; Start 09/13/18 at 09:00 Lactulose (Enulose) 6.7 gm BID PO Last administered on 09/12/18 08:21; Admin D ose 6.7 GM; Start 09/11/18 at 21:00 Albumin Human 100 ml @ 100 mls/hr Q8H IV Last administered on 09/12/18 08:19; Admin Dose 100 MLS/HR; Start 09/11/18 at 17:00; Stop 09/13/18 at 01:59 Ranulfo Gold DO Sep 12, 2018 12:58
--- NOTE | 2018-09-12 18:17 | PN ---
Date/Time of Note Date/Time of Note DATE: 09/12/18 TIME: 18:12 Assessment/Plan VTE Prophylaxis Risk score (from Ns)>0 risk: 9 SCD applied (from Nsg): Yes Pharmacological prophylaxis: LMWH Lines/Catheters IV Catheter Type (from Nrsg): PICC Line Central line still needed: Yes Urinary Cath still in place: No Assessment/Plan Hospital Course SUBJECTIVE: Denies any dyspnea. Remains in sinus rhythm. Complains of aphonia. OBJECTIVE: Physical Exam General: Adequately build 63 year-old female lying in bed in no apparent distress. HEENT: Normocephalic, atraumatic. Eyes: Anicteric sclerae, conjunctivae clear. ENT: Nasal septum midline, oral mucosa moist. Neck supple, JVD noticed. Respiratory: Bilaterally diminished breath sounds. No use of accessory muscles of respiration. No adventitious breath sounds. Cardiovascular: S1, S2 heard. Regular rate and rhythm. Abdomen: Soft, nontender, and nondistended. Bowel sounds positive in all 4 quadr ants. Genitourinary: Deferred. Extremities: No cyanosis, no clubbing. Bilateral lower extremity 2+ edema. Peripheral pulses palpable. Neurologic: The patient is awake, alert, and oriented. Aphonia. Skin: Normal skin turgor. No skin rashes. Labs & Vitals per chart ASSESSMENT & PLAN 63-year-old female with comorbidities including hypertension, pulmonary hypertension, diastolic heart failure, COPD, atrial fibrillation, and ASD repair in the remote past. The patient was transferred to [facility] from outside facility further evaluation and management of HCAP because of insurance reasons. 1. HCAP. -Continue antimicrobials. 2. Atrial fibrillation. -Currently in sinus rhythm. -Continue amiodarone. -Anticoagulation on hold because of recent GI bleed. 3. Acute on chronic diastolic heart failure exacerbation -Continue diuresis. -Cardiology following. 4. COPD. -Continue PRN inhaled bronchodilators (LESLIE) and scheduled LABA. 5. Pulmonary hypertension. -Continue supplemental oxygen. 6. History of cirrhosis -On Aldactone and Lasix. -S/P paracentesis with drainage of 2.3 L of fluid on 09/11/2018. 7. Aphonia (new onset). -?Laryngitis. -Continue antimicrobials. 8. Fluids, electrolytes, and nutrition. -Low-cholesterol diet. 9. DVT prophylaxis -Subcutaneous Lovenox. 10. Plan. -Continue IV diuresis -Continue antimicrobials. -Patient requesting to be DO NOT INTUBATE. -Patient requesting hospice evaluation. The patient was seen in collaboration with Dr. Castillo. Result Diagram: 09/12/1820 09/12/1820 Results 24hrs Laboratory Tests Test 09/11/18 23:00 09/12/18 05:20 09/12/18 06:00 Blood Gas Specimen Blood arterial Blood arterial Source Arterial Blood Date 09/12/2018 12:20:30 09/12/2018 5:36:58 AM Drawn AM Arterial Blood pH 7.286 *L 7.371 (Temp corrected) Arterial Blood pCO2 50.2 H 42.5 (Temp correct) Arterial Blood pO2 85.1 102.4 H (Temp corrected) Arterial Blood HCO3 23.4 24.1 Arterial Blood Base -3.4 L -1.2 Excess Arterial Blood 95.0 97.3 Oxygen Saturation Senthil Test N/A N/A Arterial Blood Gas Right Brachial Right Brachial Puncture Site Arterial 0.3 0.3 Blood Carboxyhemoglob in Arterial Blood 0.2 0.4 Methemoglobin Blood Gas A-a O2 69.8 H 61.6 H Differential Oxyhemoglobin Percent 94.5 96.6 Blood Gas Temperature 37.0 37.0 Blood Gas Respiration 16.0 16.0 Rate Blood Gas Actual 20 21 Respiration Rate Blood Gas Modality MASK - BIPAP MASK - BIPAP FiO2 30.0 30.0 Blood Gas Tidal 480.0 490.0 Volume Blood Gas IPAP/EPAP 15/5 15/5 Ratio Blood Gas Critical Inocencia YOU RN Value Read Back Blood Gas Notified MG MG Whom Blood Gas Notified 09/12/2018 12:31:24 09/12/2018 5:45:19 AM Time AM White Blood Count 8.6 Red Blood Count 2.54 L Hemoglobin 8.1 L Hematocrit 25.9 L Mean Corpuscular 102.0 H Volume Mean Corpuscular 31.9 Hemoglobin Mean Corpuscular 31.3 L Hemoglobin Concent Red Cell Distribution 22.6 H Width Platelet Count 218 Mean Platelet Volume 11.1 H Immature Granulocytes 0.900 H % Neutrophils % 73.2 Lymphocytes % 18.9 Monocytes % 6.9 Eosinophils % 0.0 Basophils % 0.1 Nucleated Red Blood 0.0 Cells % Immature Granulocytes 0.080 H # Neutrophils # 6.3 Lymphocytes # 1.6 Monocytes # 0.6 Eosinophils # 0.0 Basophils # 0.0 Nucleated Red Blood 0.0 Cells # Prothrombin Time 17.3 H Prothrombin Time 1.4 Ratio INR International 1.40 Normalized Ratio Sodium Level 147 H Potassium Level 3.5 Chloride Level 113 H Carbon Dioxide Level 25 Anion Gap 9 Blood Urea Nitrogen 12 Creatinine 0.68 Est Glomerular > 60 Filtrat Rate mL/min Glucose Level 98 Calcium Level 9.5 Phosphorus Level 3.6 Magnesium Level 1.9 Total Bilirubin 0.1 L Direct Bilirubin 0.00 Indirect Bilirubin 0.1 Aspartate Amino 24 Transf (AST/SGOT) Alanine 22 Aminotransferase (ALT /SGPT) Alkaline Phosphatase 83 Ammonia 41 #H Total Protein 5.8 L Albumin 3.2 L Globulin 2.60 Albumin/Globulin 1.23 Ratio Exam/Review of Systems Exam Vitals Vital Signs Date Temp Pulse Resp B/P (MAP) Pulse Ox O2 O2 Flow FiO2 Time Delivery Rate 09/12/18 86 97 30 17:33 09/12/18 98.0 18 105/55 16:43 (72) 09/12/18 2.0 16:40 09/12/18 Nasal 12:26 Cannula Intake and Output 09/11/18 09/11/18 09/12/18 1515:00 23:00 07:00 IntakeIntake Total 50 ml 850 ml 400 ml BalanceBalance 50 ml 850 ml 400 ml Results Results 24hrs Laboratory Tests Test 09/11/18 23:00 09/12/18 05:20 09/12/18 06:00 Blood Gas Specimen Blood arterial Blood arterial Source Arterial Blood Date 09/12/2018 12:20:30 09/12/2018 5:36:58 AM Drawn AM Arterial Blood pH 7.286 *L 7.371 (Temp corrected) Arterial Blood pCO2 50.2 H 42.5 (Temp correct) Arterial Blood pO2 85.1 102.4 H (Temp corrected) Arterial Blood HCO3 23.4 24.1 Arterial Blood Base -3.4 L -1.2 Excess Arterial Blood 95.0 97.3 Oxygen Saturation Senthil Test N/A N/A Arterial Blood Gas Right Brachial Right Brachial Puncture Site Arterial 0.3 0.3 Blood Carboxyhemoglob in Arterial Blood 0.2 0.4 Methemoglobin Blood Gas A-a O2 69.8 H 61.6 H Differential Oxyhemoglobin Percent 94.5 96.6 Blood Gas Temperature 37.0 37.0 Blood Gas Respiration 16.0 16.0 Rate Blood Gas Actual 20 21 Respiration Rate Blood Gas Modality MASK - BIPAP MASK - BIPAP FiO2 30.0 30.0 Blood Gas Tidal 480.0 490.0 Volume Blood Gas IPAP/EPAP 28/09 28/09 Ratio Blood Gas Critical Inocencia YOU RN Value Read Back Blood Gas Notified MG MG Whom Blood Gas Notified 09/12/2018 12:31:24 09/12/2018 5:45:19 AM Time AM White Blood Count 8.6 Red Blood Count 2.54 L Hemoglobin 8.1 L Hematocrit 25.9 L Mean Corpuscular 102.0 H Volume Mean Corpuscular 31.9 Hemoglobin Mean Corpuscular 31.3 L Hemoglobin Concent Red Cell Distribution 22.6 H Width Platelet Count 218 Mean Platelet Volume 11.1 H Immature Granulocytes 0.900 H % Neutrophils % 73.2 Lymphocytes % 18.9 Monocytes % 6.9 Eosinophils % 0.0 Basophils % 0.1 Nucleated Red Blood 0.0 Cells % Immature Granulocytes 0.080 H # Neutrophils # 6.3 Lymphocytes # 1.6 Monocytes # 0.6 Eosinophils # 0.0 Basophils # 0.0 Nucleated Red Blood 0.0 Cells # Prothrombin Time 17.3 H Prothrombin Time 1.4 Ratio INR International 1.40 Normalized Ratio Sodium Level 147 H Potassium Level 3.5 Chloride Level 113 H Carbon Dioxide Level 25 Anion Gap 9 Blood Urea Nitrogen 12 Creatinine 0.68 Est Glomerular > 60 Filtrat Rate mL/min Glucose Level 98 Calcium Level 9.5 Phosphorus Level 3.6 Magnesium Level 1.9 Total Bilirubin 0.1 L Direct Bilirubin 0.00 Indirect Bilirubin 0.1 Aspartate Amino 24 Transf (AST/SGOT) Alanine 22 Aminotransferase (ALT /SGPT) Alkaline Phosphatase 83 Ammonia 41 #H Total Protein 5.8 L Albumin 3.2 L Globulin 2.60 Albumin/Globulin 1.23 Ratio Medications Medication Current Medications Amiodarone HCl (Cordarone) 100 mg DAILY PO Last administered on 09/12/18at 08:17; Admin Dose 100 MG; Start 09/09/18 at 09:00 Atenolol (Tenormin) 12.5 mg BID PO Last administered on 09/11/18at 21:22; Admin Dose 12.5 MG; Start 09/08/18 at 21:00; Status Hold Pantoprazole (Protonix Tab) 40 mg DAILY PO Last administered on 09/12/18 08:18; Admin Dose 40 MG; Start 09/09/18 at 09:00 Cefepime HCl 50 ml @ 100 mls/hr Q12 IVPB Last administered on 09/12/18 08:18; Admin Dose 100 MLS/HR; Start 09/08/18 at 15:07 IV Flush (NS 3 ml) 3 ml PER PROTOCOL IV ; Start 09/08/18 at 15:00 Ondansetron HCl (Zofran Inj) 4 mg Q6H PRN IV NAUSEA/VOMITING; Start 09/08/18 at 15:00 Acetaminophen (Tylenol Tab) 650 mg Q6H PRN PO .PAIN 1-3 OR TEMP; Start 09/08/18 at 15:00 Tiotropium [place] (Spiriva) 1 inh DAILY INH Last administered on 09/12/18 08:20; Admin Dose 1 INH; Start 09/09/18 at 09:00 Levalbuterol (Xopenex Neb) 1.25 mg Q4H RESP THERAPY PRN HHN wheezinng Last administered on 09/12/18 12:22; Admin Dose 1.25 MG; Start 09/08/18 at 15:30 Guaifenesin/ Dextromethorphan (Mucinex Dm) 1 tab BID PO Last administered on 09/12/18 08:18; Admin Dose 1 TAB; Start 09/08/18 at 21:00 Guaifenesin/ Dextromethorphan (Robitussin Dm Liquid Cup) 10 ml Q4H PRN PO COUGH; Start 09/09/18 at 17:30 Thiamine HCl (Vitamin B1) 100 mg DAILY PO Last administered on 09/12/18 08:18; Admin Dose 100 MG; Start 09/10/18 at 09:00 Ipratropium [place] (Atrovent 0.02% (Neb)) 0.5 mg Q8H RESP THERAPY HHN Last administered on 09/12/18 07:31; Admin Dose 0.5 MG; Start 09/11/18 at 00:00 Levalbuterol (Xopenex Neb) 1.25 mg Q8H RESP THERAPY HHN Last administered on 4/29/19at 07:31; Admin Dose 1.25 MG; Start 09/11/18 at 00:00 Spironolactone (Aldactone) 25 mg BID DIURETICS PO Last administered on 09/12/18at 07:03; Admin Dose 25 MG; Start 09/10/18 at 18:00 Levothyroxine Sodium (Synthroid) 100 mcg BEFORE BREAKFAST PO Last administered on 09/12/18at 07:02; Admin Dose 100 MCG; Start 09/11/18 at 07:00 Enoxaparin Sodium (Lovenox) 40 mg DAILY SC ; Start 09/13/18 at 09:00 Lactulose (Enulose) 6.7 gm BID PO Last administered on 09/12/18at 08:21; Admin Dose 6.7 GM; Start 09/11/18 at 21:00 Albumin Human 100 ml @ 100 mls/hr Q8H IV Last administered on 09/12/18 08:19; Admin Dose 100 MLS/HR; Start 09/11/18 at 17:00; Stop 09/13/18 at 01:59 Furosemide (Lasix) 20 mg Q8 IV Last administered on 09/12/18at 14:27; Admin Dose 20 MG; Start 09/12/18 at 14:00 THU THORPE NP Sep 12, 2018 18:17
[2018-09-13] VITALS (18 sets, daily range): BP systolic 100–121; BP diastolic 57–75; PULSE 66–93; RESP 18–19
[2018-09-13] MEDS: IPRATROPIUM (NEB) 0.5 MG/2.5 ML AMP HHN SCH ×2 (00:12→07:34)
[2018-09-13] MEDS: LEVALBUTEROL (NEB) 1.25 MG/0.5 ML AMP HHN SCH ×2 (00:13→07:34)
[2018-09-13] MEDS: ALBUMIN HUMAN 25% 100 ML IV SCH (00:24)
[2018-09-13] MEDS: LEVOTHYROXINE 50 MCG TAB PO SCH (07:01)
[2018-09-13] MEDS: SPIRONOLACTONE 50 MG TAB PO SCH (07:02)
[2018-09-13] MEDS: FUROSEMIDE 40 MG INJ IV SCH (07:02)
[2018-09-13] MEDS ORDERED: POTASSIUM CHLORIDE (SR) 20 MEQ TAB PO STA (07:56)
[2018-09-13] MEDS: TIOTROPIUM 18 MCG CAPSULE INHA DEV INH SCH (08:15)
[2018-09-13] MEDS: PANTOPRAZOLE (EC) 40 MG TAB PO SCH (08:19)
[2018-09-13] MEDS: LACTULOSE 30ML CUP PO SCH (08:19)
[2018-09-13] MEDS: GUAIFENESIN/DM (SR) TAB PO SCH (08:20)
[2018-09-13] MEDS: AMIODARONE 200 MG TAB PO SCH (08:20)
[2018-09-13] MEDS: THIAMINE 100 MG TAB PO SCH (08:21)
[2018-09-13] MEDS ORDERED: POTASSIUM CHLORIDE 100 ML IVPB ONE (08:30)
[2018-09-13] MEDS ORDERED: POTASSIUM CHLORIDE 100 ML IVPB SCH (08:30)
[2018-09-13] MEDS: CEFEPIME 1GM/50 ML (PMX) 50 ML IVPB SCH (08:32)
--- NOTE | 2018-09-13 08:45 | PN ---
Date/Time of Note Date/Time of Note DATE: 09/13/18 TIME: 08:44 Assessment/Plan VTE Prophylaxis Risk score (from Ns)>0 risk: 9 SCD applied (from Nsg): Yes Pharmacological prophylaxis: LMWH Lines/Catheters IV Catheter Type (from Nrsg): PICC Line Central line still needed: Yes Urinary Cath still in place: Yes Reason Cath still needed: other (indicate) Assessment/Plan Hospital Course SUBJECTIVE: Denies any dyspnea. Remains in sinus rhythm. Complains of aphonia. OBJECTIVE: Physical Exam General: Adequately build 63 year-old female lying in bed in no apparent distress. HEENT: Normocephalic, atraumatic. Eyes: Anicteric sclerae, conjunctivae clear. ENT: Nasal septum midline, oral mucosa moist. Neck supple, JVD noticed. Respiratory: Bilaterally diminished breath sounds. No use of accessory muscles of respiration. No adventitious breath sounds. Cardiovascular: S1, S2 heard. Regular rate and rhythm. Abdomen: Soft, nontender, and nondistended. Bowel sounds positive in all 4 quadrants. Genitourinary: Deferred. Extremities: No cyanosis, no clubbing. Bilateral lower extremity 2+ edema. Peripheral pulses palpable. Neurologic: The patient is awake, alert, and oriented. Aphonia. Skin: Normal skin turgor. No skin rashes. Labs & Vitals per chart ASSESSMENT & PLAN 63-year-old female with comorbidities including hypertension, pulmonary hypertension, diastolic heart failure, COPD, atrial fibrillation, and ASD repair in the remote past. The patient was transferred to [facility] from outside facility further evaluation and management of HCAP because of insurance reasons. 1. HCAP. -Continue antimicrobials. 2. Atrial fibrillation. -Currently in sinus rhythm. -Continue amiodarone. -Anticoagulation on hold because of recent GI bleed. 3. Acute on chronic diastolic heart failure exacerbation -Continue diuresis. -Cardiology following. 4. COPD. -Continue PRN inhaled bronchodilators (LESLIE) and scheduled LABA. 5. Pulmonary hypertension. -Continue supplemental oxygen. 6. History of cirrhosis -On Aldactone and Lasix. -S/P paracentesis with drainage of 2.3 L of fluid on 09/11/2018. 7. Aphonia (new onset). -?Laryngitis. -Continue antimicrobials. -Speech therapy evaluation. -Imaging of the neck. 8. Fluids, electrolytes, and nutrition. -Low-cholesterol diet. 9. DVT prophylaxis -Subcutaneous Lovenox. 10. Plan. -Continue IV diuresis -Continue antimicrobials. -Patient requesting to be DO NOT INTUBATE. -Patient requesting hospice evaluation. Case management consult has been or dered. -Replete potassium. The patient was seen in collaboration with Dr. Castillo. Result Diagram: 09/13/18 0535 09/13/18 0534 Results 24hrs Laboratory Tests Test 09/13/18 05:34 09/13/18 05:35 Sodium Level 150 H Potassium Level 2.9 *L Chloride Level 115 H Carbon Dioxide Level 26 Anion Gap 9 Blood Urea Nitrogen 12 Creatinine 0.95 Est Glomerular Filtrat Rate mL/min 60 Glucose Level 104 Calcium Level 9.7 Ammonia 19 White Blood Count 8.9 Red Blood Count 2.53 L Hemoglobin 7.8 L Hematocrit 25.2 L Mean Corpuscular Volume 99.6 Mean Corpuscular Hemoglobin 30.8 Mean Corpuscular Hemoglobin Concent 31.0 L Red Cell Distribution Width 22.5 H Platelet Count 214 Mean Platelet Volume 10.8 H Immature Granulocytes % 1.600 H Neutrophils % 73.3 Lymphocytes % 17.5 Monocytes % 7.0 Eosinophils % 0.5 Basophils % 0.1 Nucleated Red Blood Cells % 0.0 Immature Granulocytes # 0.140 H Neutrophils # 6.5 Lymphocytes # 1.6 Monocytes # 0.6 Eosinophils # 0.0 Basophils # 0.0 Nucleated Red Blood Cells # 0.0 Magnesium Level 2.0 Exam/Review of Systems Exam Vitals Vital Signs Date Temp Pulse Resp B/P (MAP) Pulse Ox O2 O2 Flow FiO2 Time Delivery Rate 09/13/18 82 08:01 09/13/18 98.0 18 110/67 98 07:37 (81) 09/13/18 2.0 05:40 09/13/18 Nasal 00:25 Cannula 09/12/18 24 22:30 Intake and Output 09/12/18 09/12/18 09/13/18 1515:00 23:00 07:00 IntakeIntake Total 150 ml 450 ml OutputOutput Total 800 ml 1550 ml BalanceBalance -650 ml -1100 ml Results Results 24hrs Laboratory Tests Test 09/13/18 05:34 09/13/18 05:35 Sodium Level 150 H Potassium Level 2.9 *L Chloride Level 115 H Carbon Dioxide Level 26 Anion Gap 9 Blood Urea Nitrogen 12 Creatinine 0.95 Est Glomerular Filtrat Rate mL/min 60 Glucose Level 104 Calcium Level 9.7 Ammonia 19 White Blood Count 8.9 Red Blood Count 2.53 L Hemoglobin 7.8 L Hematocrit 25.2 L Mean Corpuscular Volume 99.6 Mean Corpuscular Hemoglobin 30.8 Mean Corpuscular Hemoglobin Concent 31.0 L Red Cell Distribution Width 22.5 H Platelet Count 214 Mean Platelet Volume 10.8 H Immature Granulocytes % 1.600 H Neutrophils % 73.3 Lymphocytes % 17.5 Monocytes % 7.0 Eosinophils % 0.5 Basophils % 0.1 Nucleated Red Blood Cells % 0.0 Immature Granulocytes # 0.140 H Neutrophils # 6.5 Lymphocytes # 1.6 Monocytes # 0.6 Eosinophils # 0.0 Basophils # 0.0 Nucleated Red Blood Cells # 0.0 Magnesium Level 2.0 Medications Medication Current Medications Amiodarone HCl (Cordarone) 100 mg DAILY PO Last administered on 09/13/18 08:20; Admin Dose 100 MG; Start 09/09/18 at 09:00 Atenolol (Tenormin) 12.5 mg BID PO Last administered on 09/11/18 21:22; Admin Dose 12.5 MG; Start 09/08/18 at 21:00; Status Hold Pantoprazole (Protonix Tab) 40 mg DAILY PO Last administered on 09/13/18 08:19; Admin Dose 40 MG; Start 09/09/18 at 09:00 Cefepime HCl 50 ml @ 100 mls/hr Q12 IVPB Last administered on 09/13/18 08:32; Admin Dose 100 MLS/HR; Start 09/08/18 at 15:07 IV Flush (NS 3 ml) 3 ml PER PROTOCOL IV ; Start 09/08/18 at 15:00 Ondansetron HCl (Zofran Inj) 4 mg Q6H PRN IV NAUSEA/VOMITING; Start 09/08/18 at 15:00 Acetaminophen (Tylenol Tab) 650 mg Q6H PRN PO .PAIN 1-3 OR TEMP; Start 09/08/18 at 15:00 Tiotropium [place] (Spiriva) 1 inh DAILY INH Last administered on 09/13/18 08:15; Admin Dose 1 INH; Start 09/09/18 at 09:00 Levalbuterol (Xopenex Neb) 1.25 mg Q4H RESP THERAPY PRN HHN wheezinng Last administered on 09/12/18 12:22; Admin Dose 1.25 MG; Start 09/08/18 at 15:30 Guaifenesin/ Dextromethorphan (Mucinex Dm) 1 tab BID PO Last administered on 09/13/18 08:20; Admin Dose 1 TAB; Start 09/08/18 at 21:00 Guaifenesin/ Dextromethorphan (Robitussin Dm Liquid Cup) 10 ml Q4H PRN PO COUGH; Start 09/09/18 at 17:30 Thiamine HCl (Vitamin B1) 100 mg DAILY PO Last administered on 09/13/18 08:21; Admin Dose 100 MG; Start 09/10/18 at 09:00 Ipratropium [place] (Atrovent 0.02% (Neb)) 0.5 mg Q8H RESP THERAPY HHN Last administered on 09/13/18 07:34; Admin Dose 0.5 MG; Start 09/11/18 at 00:00 Levalbuterol (Xopenex Neb) 1.25 mg Q8H RESP THERAPY HHN Last administered on 09/13/18 07:34; Admin Dose 1.25 MG; Start 09/11/18 at 00:00 Spironolactone (Aldactone) 25 mg BID DIURETICS PO Last administered on 09/13/18 07:02; Admin Dose 25 MG; Start 09/10/18 at 18:00 Levothyroxine Sodium (Synthroid) 100 mcg BEFORE BREAKFAST PO Last administered on 09/13/18 07:01; Admin Dose 100 MCG; Start 09/11/18 at 07:00 Enoxaparin Sodium (Lovenox) 40 mg DAILY SC ; Start 09/13/18 at 09:00 Lactulose (Enulose) 6.7 gm BID PO Last administered on 09/13/18 08:19; Admin Dose 6.7 GM; Start 09/11/18 at 21:00 Furosemide (Lasix) 20 mg Q8 IV Last administered on 09/13/18 07:02; Admin Dose 20 MG; Start 09/12/18 at 14:00 Potassium Chloride 100 ml @ 50 mls/hr ONCE ONCE IVPB ; Start 09/13/18 at 08:30; Stop 09/13/18 at 10:29 THU THORPE NP Sep 13, 2018 08:45
[2018-09-13] MEDS ORDERED: ENOXAPARIN 40 MG/0.4 ML SYG SC SCH (09:00)
--- NOTE | 2018-09-13 14:12 | CONS ---
Assessment/Plan Cardiology NYHA: III Heart Failure Type: Chronic Heart Failure Type: Diastolic Assessment/Plan Hospital Course (Demo Recall) Acute decompensated diastolic congestive heart failure Pneumonia Labile blood pressure Paroxysmal atrial fibrillation History of COPD Normal nuclear cardiac perfusion study 12/25/2017 Preserved left ventricular systolic ejection fraction echocardiogram 07/05/2018 ASD status post surgical repair ? Aphasia -CT head with no acute intracranial abnormality -Patient currently on BiPAP, discussion with hospitalist, patient requesting hospice care. -In the interim, given hypernatremia, would decrease diuretics, adjust IV fluids, consider nephrology consultation Consultation Date/Type/Reason Admit Date/Time Sep 08, 2018 at 13:04 Initial Consult Date 09/09/18 Type of Consult Cardiology Date/Time of Note DATE: 09/13/18 TIME: 14:10 24 HR Interval Summary Free Text/Dictation Patient currently on BiPAP. Discussion with hospitalist, requesting hospice care Exam/Review of Systems Vital Signs Vitals Vital Signs Date Temp Pulse Resp B/P (MAP) Pulse Ox O2 O2 Flow FiO2 Time Delivery Rate 09/13/18 98.6 87 18 107/57 99 12:19 (74) 09/13/18 Nasal 2.0 10:22 Cannula 09/13/18 30 09:27 Intake and Output 09/12/18 09/12/18 09/13/18 1515:00 23:00 07:00 IntakeIntake Total 150 ml 450 ml OutputOutput Total 800 ml 1550 ml BalanceBalance -650 ml -1100 ml Exam Exam Sleeping but arousable, following commands, on BiPAP Head: normocephalic Respiratory: other (Coarse breath sounds bilaterally, no wheezing) Cardiovascular: regular rate and rhythm (S1-S2 heard) Gastrointestinal: soft, non-tender, bowel sounds Extremities: edema Labs Result Diagram: 09/13/18 0535 09/13/18 0534 Results 24hrs Laboratory Tests Test 09/13/18 05:34 09/13/18 05:35 Sodium Level 150 H Potassium Level 2.9 *L Chloride Level 115 H Carbon Dioxide Level 26 Anion Gap 9 Blood Urea Nitrogen 12 Creatinine 0.95 Est Glomerular Filtrat Rate mL/min 60 Glucose Level 104 Calcium Level 9.7 Ammonia 19 White Blood Count 8.9 Red Blood Count 2.53 L Hemoglobin 7.8 L Hematocrit 25.2 L Mean Corpuscular Volume 99.6 Mean Corpuscular Hemoglobin 30.8 Mean Corpuscular Hemoglobin Concent 31.0 L Red Cell Distribution Width 22.5 H Platelet Count 214 Mean Platelet Volume 10.8 H Immature Granulocytes % 1.600 H Neutrophils % 73.3 Lymphocytes % 17.5 Monocytes % 7.0 Eosinophils % 0.5 Basophils % 0.1 Nucleated Red Blood Cells % 0.0 Immature Granulocytes # 0.140 H Neutrophils # 6.5 Lymphocytes # 1.6 Monocytes # 0.6 Eosinophils # 0.0 Basophils # 0.0 Nucleated Red Blood Cells # 0.0 Magnesium Level 2.0 Medications Medications Current Medications Amiodarone HCl (Cordarone) 100 mg DAILY PO Last administered on 09/13/18 08:20; Admin Dose 100 MG; Start 09/09/18 at 09:00 Atenolol (Tenormin) 12.5 mg BID PO Last administered on 09/11/18 21:22; Admin Dose 12.5 MG; Start 09/08/18 at 21:00; Status Hold Pantoprazole (Protonix Tab) 40 mg DAILY PO Last administered on 09/13/18 08:19; Admin Dose 40 MG; Start 09/09/18 at 09:00 Cefepime HCl 50 ml @ 100 mls/hr Q12 IVPB Last administered on 09/13/18 08:32; Admin Dose 100 MLS/HR; Start 09/08/18 at 15:07 IV Flush (NS 3 ml) 3 ml PER PROTOCOL IV ; Start 09/08/18 at 15:00 Ondansetron HCl (Zofran Inj) 4 mg Q6H PRN IV NAUSEA/VOMITING; Start 09/08/18 at 15:00 Acetaminophen (Tylenol Tab) 650 mg Q6H PRN PO .PAIN 1-3 OR TEMP; Start 09/08/18 at 15:00 Tiotropium [place] (Spiriva) 1 inh DAILY INH Last administered on 09/13/18 08:15; Admin Dose 1 INH; Start 09/09/18 at 09:00 Levalbuterol (Xopenex Neb) 1.25 mg Q4H RESP THERAPY PRN HHN wheezinng Last administered on 09/12/18 12:22; Admin Dose 1.25 MG; Start 09/08/18 at 15:30 Guaifenesin/ Dextromethorphan (Mucinex Dm) 1 tab BID PO Last administered on 09/13/18 08:20; Admin Dose 1 TAB; Start 09/08/18 at 21:00 Guaifenesin/ Dextromethorphan (Robitussin Dm Liquid Cup) 10 ml Q4H PRN PO COUGH; Start 09/09/18 at 17:30 Thiamine HCl (Vitamin B1) 100 mg DAILY PO Last administered on 09/13/18 08:21; Admin Dose 100 MG; Start 09/10/18 at 09:00 Ipratropium [place] (Atrovent 0.02% (Neb)) 0.5 mg Q8H RESP THERAPY HHN Last administered on 09/13/18 07:34; Admin Dose 0.5 MG; Start 09/11/18 at 00:00 Levalbuterol (Xopenex Neb) 1.25 mg Q8H RESP THERAPY HHN Last administered on 09/13/18 07:34; Admin Dose 1.25 MG; Start 09/11/18 at 00:00 Spironolactone (Aldactone) 25 mg BID DIURETICS PO Last administered on 09/13/18 07:02; Admin Dose 25 MG; Start 09/10/18 at 18:00 Levothyroxine Sodium (Synthroid) 100 mcg BEFORE BREAKFAST PO Last administered on 09/13/18 07:01; Admin Dose 100 MCG; Start 09/11/18 at 07:00 Enoxaparin Sodium (Lovenox) 40 mg DAILY SC ; Start 09/13/18 at 09:00 Lactulose (Enulose) 6.7 gm BID PO Last administered on 09/13/18 08:19; Admin Dose 6.7 GM; Start 09/11/18 at 21:00 Furosemide (Lasix) 20 mg Q8 IV Last administered on 09/13/18 07:02; Admin Dose 20 MG; Start 09/12/18 at 14:00 Ranulfo Gold DO Sep 13, 2018 14:12
[2018-09-13] MEDS ORDERED: MAGNESIUM SULFATE 2 GM/50 ML 50 ML IVPB ONE (14:30)
[2018-09-13] MEDS ORDERED: DEXTROSE 5% 1,000 ML IV SCH (14:30)
[2018-09-13] MEDS ORDERED: LORAZEPAM 2 MG INJ IV PRN (15:00)
[2018-09-13] MEDS ORDERED: ATROPINE 1% 5 ML OPH SL PRN (15:00)
[2018-09-13] MEDS ORDERED: BISACODYL 10 MG SUPP PR PRN (15:00)
--- NOTE | 2018-09-13 15:13 | QN ---
Documentation Comment The patient was accepted by [facility] as inpatient hospice. Therefore, the care of this patient will be taken over by Dr. Gross. Case discussed with Dr. Castillo. THU THORPE NP Sep 13, 2018 15:13
[2018-09-13] MEDS: SCOPOLAMINE 1.5 MG PATCH TRANSDERM SCH (17:06)
[2018-09-13] MEDS: morphine 2 MG INJ IV PRN (17:07)
--- NOTE | 2018-09-13 23:53 | HP ---
DATE OF ADMISSION: 09/08/2018 PRIMARY DIAGNOSES: 1. Acute respiratory failure due to COPD. 2. Other comorbid pneumonia. 3. Atrial fibrillation. 4. Njbhq-[id number] diastolic heart failure with exacerbation. 5. Alcoholic cirrhosis of liver. 6. Pulmonary hypertension. CHIEF COMPLAINT AND HISTORY OF PRESENT ILLNESS: The patient is a 63-year-old female with history of chronic smoking and alcohol abuse. Has history of alcoholic cirrhosis of liver and COPD and diastoli c heart failure. The patient was admitted at [facility] on 09/08/2018, because of shortness of breath, cough, wheezing, and bilateral lower extremity swelling. The patient was diagno sed with [id number] diastolic congestive heart failure. The patient's recent echo revealed pre served ejection fraction. The patient on and off had been requiring BiPAP. The patient was seen by Dr. Gold from a cardiac standpoint. The patient essentially stayed in the bed due to shortness of breath. The patient was recently admitted back in July for atrial fibrillation with rapid ventricul ar response. During this admission, the patient was seen by Dr. Gold from a cardiac standpoint. T he patient in the past had been intolerant of anticoagulation due to recurrent rectal bleed, probably related to cirrhosis of the liver. The patient also was having difficulty in speaking for the last few days. The patient, in the morning today, was on BiPAP but patient's daughter requested to discon tinue BiPAP and requested hospice care. The patient is currently on nasal cannula, remains awake, an d responsive but does get short of breath when she tries to talk and does have occasional chest conge stion. No reported fever or chills. No reported hematemesis and no reported rectal bleed today. Th e patient does have leg edema. The patient has generalized weakness. REVIEW OF SYSTEMS: As above. All pertinent positive and negative findings have been described in HP I. Rest of review of systems unremarkable. PAST SURGICAL HISTORY: The patient is status post atrial septal defect status post surgical repair. ALLERGIES: THE PATIENT IS ALLERGIC TO NUTS. SOCIAL HISTORY: History of alcohol abuse and tobacco abuse. FAMILY HISTORY: Noncontributory. PHYSICAL EXAMINATION: GENERAL: The patient is awake and follows simple commands. VITAL SIGNS: Temperature 98, pulse 70, respiration 18, blood pressure 112/60, AND O2 saturation 98% on 2 liters cannula. HEENT: No eye discharge or redness. Conjunctivae and lids normal. Oropharynx clear. NECK: Supple. No thyromegaly. CHEST: Few scattered coarse breath sounds. Diminished air entry bilaterally. CARDIOVASCULAR: S1 and S2 normal. No murmur. ABDOMEN: Soft and nontender. EXTREMITIES: Trace extremity edema present. No clubbing or cyanosis. NEUROLOGIC: The patient is awake, alert, and follows simple commands. Has generalized weakness. LABORATORY DATA: Labs done today, WBC 8.9, hemoglobin 10.8, and platelet 214. Potassium 3.7, BUN 12 , creatinine 0.9, glucose 104, and ammonia 41. Coagulation profile revealed INR of 1.4. Echo reveal ed preserved ejection fraction. Soft tissue x-ray done this morning was negative for any acute findi ng. CT brain done yesterday revealed chronic intracranial changes. IMPRESSION: 1. Acute respiratory failure due to pneumonia. 2. Qkaeg-dp-laufcls diastolic heart failure. 3. Alcoholic cirrhosis of liver. 4. Chronic obstructive pulmonary disease. 5. Hypertension. 6. Hypothyroidism. 7. Paroxysmal atrial fibrillation. PLAN: The patient will be admitted under hospice and will be placed under [facility] level of care. The mary beth womack's family is requesting only comfort medications; therefore, the patient will be started on supp lemental oxygen, DuoNeb, morphine sulfate 2 mg q.12h p.r.n., and Ativan 1 mg q.4h. p.r.n. We will a lso add scopolamine patch due to congestion. We will continue atropine sulfate drops q.4h p.r.n. We will continue to optimize comfort care. Plan of care discussed with nursing staff and with Tayla boyce se. We will continue to follow. Dictated By: RHIANNON BURCIAGA MD AB/NTS Conf#: [id number] DID#: [id number] CC: RHIANNON BURCIAGA MD; CELSA GOLD DO; NEIL TERRELL MD; ISATU ARDON MD; ZARINA TORRES MD;*EndCC*
[2018-09-14] MEDS: morphine 2 MG INJ IV PRN ×5 (00:24→22:10)
[2018-09-14] MEDS ORDERED: FUROSEMIDE 20 MG INJ IV SCH (06:00)
[2018-09-14 07:52] VITALS: BP 103/50; PULSE 89; RESP 18
--- NOTE | 2018-09-14 11:27 | CONS ---
Assessment/Plan Cardiology NYHA: III Heart Failure Type: Chronic Heart Failure Type: Diastolic Assessment/Plan Hospital Course (Demo Recall) Acute decompensated diastolic congestive heart failure Pneumonia Labile blood pressure Paroxysmal atrial fibrillation History of COPD Normal nuclear cardiac perfusion study 12/25/2017 Preserved left ventricular systolic ejection fraction echocardiogram 07/05/2018 ASD status post surgical repair DNR/DNIhospice -Patient has been transferred to hospice service and diuretics have been stopped. -Management as per palliative care physician Consultation Date/Type/Reason Admit Date/Time Sep 08, 2018 at 13:04 Initial Consult Date 09/09/18 Type of Consult Cardiology Date/Time of Note DATE: 09/14/18 TIME: 11:26 24 HR Interval Summary Free Text/Dictation Denies shortness of breath, palpitations Exam/Review of Systems Vital Signs Vitals Vital Signs Date Temp Pulse Resp B/P (MAP) Pulse Ox O2 O2 Flow FiO2 Time Delivery Rate 09/14/18 Nasal 2.0 08:30 Cannula 09/14/18 98.2 89 18 103/50 100 07:52 (67) 09/13/18 30 13:35 Intake and Output 09/13/18 09/13/18 09/14/18 1515:00 23:00 07:00 IntakeIntake Total 400 ml 350 ml 100 ml OutputOutput Total 300 ml 800 ml 200 ml BalanceBalance 100 ml -450 ml -100 ml Exam Constitutional: alert (Falling asleep, follows commands, daughter at bedside) Head: normocephalic Respiratory: other (Coarse breath sounds bilaterally, no wheezing, scattered crackles) Cardiovascular: regular rate and rhythm (S1-S2 heard) Gastrointestinal: soft, non-tender, bowel sounds Extremities: edema Labs Result Diagram: 09/13/18 0535 09/13/18 1402 Results 24hrs Laboratory Tests Test 09/13/18 14:02 Potassium Level 3.7 Medications Medications Current Medications Albuterol/ Ipratropium (Duoneb) 3 ml Q4H RESP THERAPY PRN HHN SHORTNESS OF BREATH; Start 09/13/18 at 15:00 Morphine Sulfate (morphine) 2 mg Q2H PRN IV PAIN/DYSPNEA Last administered on 09/14/18at 09:22; Admin Dose 2 MG; Start 09/13/18 at 15:00 Lorazepam (Ativan) 1 mg Q4H PRN IV ANXIETY/SEIZURES; Start 09/13/18 at 15:00 Scopolamine (Transderm-Scop) 1 patch Q72H TRANSDERM Last administered on 09/13/18at 17:06; Admin Dose 1 PATCH; Start 09/13/18 at 15:00 Atropine Sulfate (Atropine 1% Oph) 2 drop Q4H PRN SL TERMINAL CONGESTION; Start 09/13/18 at 15:00 Bisacodyl (Dulcolax Supp) 10 mg DAILY PRN [place] CONSTIPATION; Start 09/13/18 at 15:00 Ranulfo Gold DO September 14, 2018 11:27
[2018-09-14 19:25] VITALS: BP 98/54; PULSE 92; RESP 20
--- NOTE | 2018-09-15 01:44 | PN ---
DATE: 09/14/2018 PRIMARY HOSPICE DIAGNOSES: 1. Acute respiratory failure due to chronic obstructive pulmonary disease. 2. Comorbid condition. 3. Atrial fibrillation. 4. Acute on chronic diastolic heart failure. 5. Alcoholic cirrhosis of liver. 6. Pulmonary hypertension. SUBJECTIVE AND INTERVAL HISTORY: The patient was taken off of BiPAP. The patient is breathing on [place] pplemental oxygen. She denies any chest pain. The patient does get short of breath with mild activi ty. No reported fever or chills. No reported vomiting. No reported GI bleed. PHYSICAL EXAMINATION: GENERAL: The patient is awake. VITAL SIGNS: Temperature 98.2, pulse 89, respirations 18, blood pressure ____, O2 saturation 100% on 2 liters nasal cannula. HEENT: Atraumatic, normocephalic. Conjuctivae and lids normal. Oropharynx clear. NECK: No mass. CHEST: Diminished air entry at bases. No use of accessory muscles. CARDIOVASCULAR: S1, S2 normal. ABDOMEN: Soft. EXTREMITIES: Trace edema. NEUROLOGIC: The patient is awake and alert with generalized weakness. IMPRESSION: 1. Acute respiratory failure. Continue to monitor on supplemental oxygen and breathing treatment. 2. Diastolic heart failure. The patient has marginal blood pressure. No further diuretics. 3. Alcoholic cirrhosis of liver with recent encephalopathy. LABORATORY DATA: Last ammonia level was 19, down from 41. PLAN: Continue morphine 2 mg q.12 hour p.r.n. The patient since this morning has received 4 doses o f IV morphine. Continue IV Ativan for anxiety. Scopolamine patch and atropine drops for secretion. The patient will be started on mechanical soft diet since she is off BiPAP now. Dictated By: RHIANNON LENZ/JOSE CARLOS Conf#: [id number] DID#: [id number]
[2018-09-15 02:20] VITALS: BP 97/54; PULSE 94; RESP 20
[2018-09-15] MEDS: ALBUTEROL/IPRATROPIUM (NEB) 3 ML AMP HHN PRN (09:21)
--- NOTE | 2018-09-15 12:50 | CONS ---
Assessment/Plan Cardiology NYHA: III Heart Failure Type: Chronic Heart Failure Type: Diastolic Assessment/Plan Hospital Course (Demo Recall) Acute decompensated diastolic congestive heart failure Pneumonia Labile blood pressure Paroxysmal atrial fibrillation History of COPD Normal nuclear cardiac perfusion study 12/25/2017 Preserved left ventricular systolic ejection fraction echocardiogram 07/05/2018 ASD status post surgical repair DNR/DNIhospice -Patient has been transferred to hospice service -Management as per palliative care physician Consultation Date/Type/Reason Admit Date/Time Sep 08, 2018 at 13:04 Initial Consult Date 09/09/18 Type of Consult Cardiology Date/Time of Note DATE: 09/15/18 TIME: 12:49 24 HR Interval Summary Free Text/Dictation Denies shortness of breath, chest pain Exam/Review of Systems Vital Signs Vitals Vital Signs Date Temp Pulse Resp B/P (MAP) Pulse Ox O2 O2 Flow FiO2 Time Delivery Rate 09/15/18 Nasal 2.0 09:25 Cannula 09/15/18 86 18 09:21 09/15/18 97.4 97/54 (68) 100 02:20 09/13/18 30 13:35 Intake and Output 09/14/18 09/14/18 09/15/18 1414:59 22:59 06:59 IntakeIntake Total 250 ml 200 ml OutputOutput Total 100 ml 200 ml 200 ml BalanceBalance 150 ml 0 ml -200 ml Exam Constitutional: alert (Following commands, no apparent distress) Head: normocephalic Respiratory: wheezing, other (Coarse breath sounds bilaterally) Cardiovascular: regular rate and rhythm (S1-S2) Gastrointestinal: soft, non-tender, bowel sounds Extremities: edema (Trace) Labs Result Diagram: 09/13/18 0535 09/13/18 1402 Medications Medications Current Medications Albuterol/ Ipratropium (Duoneb) 3 ml Q4H RESP THERAPY PRN HHN SHORTNESS OF BREATH Last administered on 09/15/18at 09:21; Admin Dose 3 ML; Start 09/13/18 at 15:00 Morphine Sulfate (morphine) 2 mg Q2H PRN IV PAIN/DYSPNEA Last administered on 09/14/18at 22:10; Admin Dose 2 MG; Start 09/13/18 at 15:00 Lorazepam (Ativan) 1 mg Q4H PRN IV ANXIETY/SEIZURES; Start 09/13/18 at 15:00 Scopolamine (Transderm-Scop) 1 patch Q72H TRANSDERM Last administered on 09/13/18at 17:06; Admin Dose 1 PATCH; Start 09/13/18 at 15:00 Atropine Sulfate (Atropine 1% Oph) 2 drop Q4H PRN SL TERMINAL CONGESTION; Start 09/13/18 at 15:00 Bisacodyl (Dulcolax Supp) 10 mg DAILY PRN [place] CONSTIPATION; Start 09/13/18 at 15:00 Ranulfo Gold DO September 15, 2018 12:50
[2018-09-15] MEDS: morphine 2 MG INJ IV PRN (18:08)
--- NOTE | 2018-09-15 21:16 | PN ---
DATE: 09/15/2018 PRIMARY HOSPICE DIAGNOSES: 1. Acute respiratory failure. 2. Comorbid diastolic heart failure. 3. Alcoholic cirrhosis of liver with recent encephalopathy. 4. Atrial fibrillation. 5. Pulmonary hypertension. SUBJECTIVE AND INTERVAL HISTORY: The patient continues to have shortness of breath with mild activit y, currently requiring 2 liters of oxygen via nasal cannula to maintain adequate saturation. Blood p ressure has been below 100 since yesterday. The patient is awake and responsive. Denies any chest p ain. PHYSICAL EXAMINATION: GENERAL: The patient to be awake, alert, follows simple commands. VITAL SIGNS: Temperature 97.4, pulse 86, respirations 18, blood pressure 97/54, O2 saturation 100% o n 2 L nasal cannula. HEENT: No eye discharge or redness. Conjunctivae are normal. Oropharynx clear. NECK: No mass. CHEST: Diminished air entry at bases. No use of accessory muscles. Bilateral coarse breath sounds. CARDIOVASCULAR: Currently, the patient is in sinus rhythm. ABDOMEN: Soft, nontender. EXTREMITIES: Trace edema. NEUROLOGIC: The patient is awake, alert, follows simple commands. IMPRESSION: 1. Acute respiratory failure. Continue oxygen supplement and breathing treatment. 2. Chronic obstructive pulmonary disease. Continue breathing treatment. 3. Paroxysmal atrial fibrillation. The patient is in sinus rhythm. 4. Alcoholic cirrhosis of liver. No acute issue. No GI bleed. The patient had mild coagulopathy w ith INR of 1.4 at baseline. For pain control and shortness of breath, the patient remains on morphin e 2 mg IV q.4 hours p.r.n. In the last 24 hours, the patient received 5 doses of IV morphine. Marielle nue IV Ativan on p.r.n. basis for anxiety. Dictated By: RHIANNON BURCIAGA MD AB/NTS Conf#: [id number] DID#: [id number] CC: RHIANNON BURCIAGA MD;*EndCC*
[2018-09-16] MEDS: morphine 2 MG INJ IV PRN ×3 (06:08→20:55)
[2018-09-16 07:41] VITALS: BP 120/58; PULSE 92; RESP 19
--- NOTE | 2018-09-16 12:04 | CONS ---
Assessment/Plan Cardiology NYHA: III Heart Failure Type: Chronic Heart Failure Type: Diastolic Assessment/Plan Hospital Course (Demo Recall) Acute decompensated diastolic congestive heart failure Pneumonia Labile blood pressure Paroxysmal atrial fibrillation History of COPD Normal nuclear cardiac perfusion study 12/25/2017 Preserved left ventricular systolic ejection fraction echocardiogram 07/05/2018 ASD status post surgical repair DNR/DNIhospice -Denies shortness of breath, cough or chest pain. -Patient currently hospice service -Management as per palliative care physician Consultation Date/Type/Reason Admit Date/Time Sep 08, 2018 at 13:04 Initial Consult Date 09/09/18 Type of Consult Cardiology Date/Time of Note DATE: 09/16/18 TIME: 12:03 24 HR Interval Summary Free Text/Dictation Denies chest pain, shortness of breath, cough Exam/Review of Systems Vital Signs Vitals Vital Signs Date Temp Pulse Resp B/P (MAP) Pulse Ox O2 O2 Flow FiO2 Time Delivery Rate 09/16/18 Nasal 2.0 08:00 Cannula 09/16/18 98.2 92 19 120/58 98 07:41 (78) 09/13/18 30 13:35 Intake and Output 09/15/18 09/15/18 09/16/18 1515:00 23:00 07:00 IntakeIntake Total 320 ml 400 ml OutputOutput Total 550 ml BalanceBalance 320 ml -150 ml Exam Constitutional: alert, oriented (No apparent distress, following commands) Head: normocephalic Respiratory: other (Coarse breath sounds bilaterally, mild scattered crackles) Cardiovascular: regular rate and rhythm (S1-S2 heard) Gastrointestinal: soft, non-tender, bowel sounds Extremities: edema (Trace) Labs Result Diagram: 09/13/18 0535 09/13/18 1402 Medications Medications Current Medications Albuterol/ Ipratropium (Duoneb) 3 ml Q4H RESP THERAPY PRN HHN SHORTNESS OF BREATH Last administered on 09/15/18at 09:21; Admin Dose 3 ML; Start 09/13/18 at 15:00 Morphine Sulfate (morphine) 2 mg Q2H PRN IV PAIN/DYSPNEA Last administered on 09/16/18at 06:08; Admin Dose 2 MG; Start 09/13/18 at 15:00 Lorazepam (Ativan) 1 mg Q4H PRN IV ANXIETY/SEIZURES; Start 09/13/18 at 15:00 Scopolamine (Transderm-Scop) 1 patch Q72H TRANSDERM Last administered on 09/13/18at 17:06; Admin Dose 1 PATCH; Start 09/13/18 at 15:00 Atropine Sulfate (Atropine 1% Oph) 2 drop Q4H PRN SL TERMINAL CONGESTION; Start 09/13/18 at 15:00 Bisacodyl (Dulcolax Supp) 10 mg DAILY PRN [place] CONSTIPATION; Start 09/13/18 at 15:00 Ranulfo Gold DO September 16, 2018 12:04
[2018-09-16] MEDS: SCOPOLAMINE 1.5 MG PATCH TRANSDERM SCH (15:52)
[2018-09-16] MEDS ORDERED: MORP2CAR IV (17:46)
[2018-09-16] MEDS ORDERED: ATRO2DRO3 SL (17:46)
[2018-09-16] MEDS ORDERED: LORA2VIA3 IV (17:46)
[2018-09-16] MEDS ORDERED: SCOP1PAT10 TRANSDERM (17:46)
[2018-09-17] MEDS: morphine 2 MG INJ IV PRN ×2 (09:33→13:53)
--- NOTE | 2018-09-17 12:23 | PN ---
Date/Time of Note Date/Time of Note DATE: 09/17/18 TIME: 12:22 Assessment/Plan VTE Prophylaxis Risk score (from Ns)>0 risk: 6 SCD applied (from Ns): Yes Pharmacological prophylaxis: LMWH Lines/Catheters IV Catheter Type (from Nrsg): PICC Line Central line still needed: Yes Urinary Cath still in place: Yes Reason Cath still needed: skin wounds contaminated by urine Assessment/Plan Hospital Course 1. Acute respiratory failure. Continue oxygen supplement and breathing treatment. 2. Chronic obstructive pulmonary disease. Continue breathing treatment. 3. Paroxysmal atrial fibrillation. The patient is in sinus rhythm. 4. Alcoholic cirrhosis of liver. No acute issue. No GI bleed. The patient had mild coagulopathy with INR of 1.4 at baseline. For pain control and shortness of breath, the patient remains on morphine 2 mg IV q.4 hours p.r.n. In the last 24 hours, the patient received 5 doses of IV morphine. Continue IV Ativan on p.r.n. basis for anxiety. Result Diagram: 09/13/18 0535 09/13/18 1402 Subjective 24 Hr Interval Summary Free Text/Dictation Patient has no complaints Exam/Review of Systems Exam Vitals Vital Signs Date Temp Pulse Resp B/P (MAP) Pulse Ox O2 O2 Flow FiO2 Time Delivery Rate 09/17/18 Nasal 3.0 09:43 Cannula 09/16/18 98.2 92 19 120/58 98 07:41 (78) 09/13/18 30 13:35 Intake and Output 09/16/18 09/16/18 09/17/18 1515:00 23:00 07:00 OutputOutput Total 400 ml BalanceBalance -400 ml Constitutional: well developed Head: normocephalic, atraumatic Neck: supple Respiratory: diminished breath sounds Cardiovascular: regular rate and rhythm Gastrointestinal: soft, non-tender Extremities: normal pulses Medications Medication Current Medications Albuterol/ Ipratropium (Duoneb) 3 ml Q4H RESP THERAPY PRN HHN SHORTNESS OF BREATH Last administered on 09/15/18at 09:21; Admin Dose 3 ML; Start 09/13/18 at 15:00 Morphine Sulfate (morphine) 2 mg Q2H PRN IV PAIN/DYSPNEA Last administered on 09/17/18at 09:33; Admin Dose 2 MG; Start 09/13/18 at 15:00 Lorazepam (Ativan) 1 mg Q4H PRN IV ANXIETY/SEIZURES; Start 09/13/18 at 15:00 Scopolamine (Transderm-Scop) 1 patch Q72H TRANSDERM Last administered on 09/16/18at 15:52; Admin Dose 1 PATCH; Start 09/13/18 at 15:00 Atropine Sulfate (Atropine 1% Oph) 2 drop Q4H PRN SL TERMINAL CONGESTION; Start 09/13/18 at 15:00 Bisacodyl (Dulcolax Supp) 10 mg DAILY PRN [place] CONSTIPATION; Start 09/13/18 at 15:00 EDISON MCBRIDE September 17, 2018 12:23
[2018-09-17 12:44] VITALS: BP 109/66; PULSE 76
[2018-09-17] MEDS: ALBUTEROL/IPRATROPIUM (NEB) 3 ML AMP HHN PRN (14:00)
--- NOTE | 2018-09-18 11:37 | DS ---
DATE OF ADMISSION: 09/08/2018 DATE OF DISCHARGE: 09/17/2018 DISCHARGE DIAGNOSES: 1. Chronic obstructive pulmonary disease. 2. Paroxysmal atrial fibrillation. 3. Alcoholic cirrhosis of liver. DISCHARGE MEDICATIONS: Please see transfer MAR as patient will be transferred to [facility] for hospice care. REASON FOR ADMISSION: The patient is a 63-year-old female with history of chronic smoking and alcoho l abuse and has a diagnosis of COPD and alcoholic cirrhosis of liver. The patient also has history o f paroxysmal atrial fibrillation. The patient came to ER with shortness of breath and was coughing, wheezing. Patient has bilateral lower extremity swelling. The patient was diagnosed with acute on c hronic diastolic congestive heart failure. Patient was seen by Dr. Gold from a cardiac standpoint. The patient is intolerant of anticoagulation due to recurrent rectal bleed; therefore, for CVA prop hylaxis, patient was not started on anticoagulation. The patient had CT of the brain done during thi s admission which revealed chronic changes. EF revealed preserved ejection fraction. The patient sauceda d declining quality of life and therefore hospice was called. The patient was admitted under hospice on 09/13/2018 as a ____ patient. The patient was taken off BiPAP and was put on supplemental oxygen . The patient did have diminished p.o. intake; however, did not have any respiratory distress today and since yesterday at 1800 has received only 3 doses of p.r.n. IV morphine. The patient remains digna ke and responsive. The speech is better. PHYSICAL EXAMINATION: GENERAL: Revealed the patient to be awake, alert. VITAL SIGNS: Temperature 98.2, pulse 92, respiration 19, blood pressure 130/58, O2 saturation 97% on 2 liters nasal cannula. HEENT: No eye discharge or redness. Conjunctivae and lids are normal. Nose and ears normal. Oroph arynx grossly negative. NECK: No mass. CHEST: Diminished air entry at the bases. CARDIOVASCULAR: S1, S2 normal. ABDOMEN: Soft. EXTREMITIES: Trace edema. NEUROLOGIC: The patient is awake, follows simple command, has generalized weakness. DISPOSITION: The patient will be discharged to [facility] once bed is av lable. The patient will be followed by hospice physician at [facility]. Dictated By: RHIANNON LENZ/JOSE CARLOS Conf#: [id number] [facility]#: [id number]
== END 2018-09-17 14:20 | DRG 291 ==
LOC: E/R 11:05 → 6WM 13:04 → MS1 09-14 02:02
PROVIDERS: ADMIT Internal Medicine; ATTEND Internal Medicine
PROC: 0W9G3ZZ Drainage of Peritoneal Cavity, Percutaneous Approach (ICD-10-PCS; principal; 2018-09-11)
PROC: 5A09457 Assistance with Respiratory Ventilation, 24-96 Consecutive Hours, Continuous Positive Airway Pressure (ICD-10-PCS; 2018-09-11)
PROC: 3E0F7GC Introduction of Other Therapeutic Substance into Respiratory Tract, Via Natural or Artificial Opening (ICD-10-PCS; 2018-09-14)
DX: I11.0 Hypertensive heart disease with heart failure (principal); J18.9 Pneumonia, unspecified organism; J96.00 Acute respiratory failure, unspecified whether with hypoxia or hypercapnia; J44.1 Chronic obstructive pulmonary disease with (acute) exacerbation; D68.69 Other thrombophilia; I27.20 Pulmonary hypertension, unspecified; K70.31 Alcoholic cirrhosis of liver with ascites; I48.0 Paroxysmal atrial fibrillation; Z79.01 Long term (current) use of anticoagulants; Z95.1 Presence of aortocoronary bypass graft; I50.33 Acute on chronic diastolic (congestive) heart failure; Y95 Nosocomial condition; R49.1 Aphonia; I25.10 Atherosclerotic heart disease of native coronary artery without angina pectoris; E87.6 Hypokalemia; K21.9 Gastro-esophageal reflux disease without esophagitis; F10.20 Alcohol dependence, uncomplicated; Z66 Do not resuscitate; Y90.9 Presence of alcohol in blood, level not specified; R62.7 Adult failure to thrive; Z68.22 Body mass index [BMI] 22.0-22.9, adult; Z74.01 Bed confinement status; Z87.891 Personal history of nicotine dependence
CPT/HCPCS: 36600; 70360; 70450; 71045; 76705; 80048; 80053; 80061; 82140; 82550; 82553; 82803; 83036; 83735; 83880; 84100; 84132; 84443; 84484; 85025; 85610; 87400; 93005; 93970; 94640; 94660; 94664; A4310; J0692; J1650; J1940; J2270; J2920; J3370; J3475; J3480; J7040; J7050; J7070; P9047